=== PATIENT | female | born 1930 | race Caucasian/White ===

== ENCOUNTER 2016-11-29 17:53 | Inpatient (IN) ==
--- NOTE | 2016-11-29 19:31 | Internal Med History&Physical ---
Date of Encounter: 11/29/16 Time of Encounter: 19:29 Assessment and Plan (1) Physical deconditioning Current visit: Yes Status: Acute patient comes in with signs and symptoms concerning for this condition, she lives at home alone so this is concerning for her care, we will get PT/OT to weigh in (2) GIB (gastrointestinal bleeding) Current visit: Yes Status: Acute patient reports dark tarry stools concerning for GI bleed, she had her last colonoscopy in 1973, we will get GI/surgery to weigh in, Qualifiers: GI bleed type/associated pathology: diverticulosis Qualified Code(s): K57.91 - Diverticulosis of intestine, part unspecified, without perforation or abscess with bleeding (3) Hypokalemia Current visit: Yes Status: Acute from hx this is most likely from poor intake, we will replace and follow BMP (4) Pleural effusion Current visit: Yes Status: Acute moderate left sided pleural effusion may be contributing to her dyspnea but there are other causes like her anemia, her pulse ox reading has been normal, she will benefit however from consideration of thoracentesis, this decision will be deferred to the primary attending (5) Anemia Current visit: Yes Status: Acute patient has a normal Hb of 12.4 in 08/2016 and now comes in with a drop to 9.0 in the setting of dark tarry stools, the fact that her MCV is normal is concerning for an acute blood loss, will monitor clinically for continued bleed , follow CBC, we will get GI input, should her Hb <7, we will transfuse PRBC Qualifiers: Anemia type: other cause Other causes of anemia: chronic disease, neoplastic Qualified Code(s): D63.0 - Anemia in neoplastic disease (6) CML (chronic myelocytic leukemia) Current visit: Yes Status: Chronic we will defer to outpatient management with her oncologist Internal Medicine - H&P: HPI Chief complaint: generalized weakness Admitted From: Hospital to Hospital Transfer Plans for Post Hospital Care: Home History of present illness: Ms. Desouza is a 86 year old female with a history of leukemia diagnosed about 9 weeks ago and started on Gleevec about 5 weeks ago comes in with worsening generalized weakness. She reports that she was in her usual state of health until about 5 weeks ago when she began treatment for her recently diagnosed condition. Since then she has had nausea and vomiting, inability to eat and has had a poor oral intake since. This has caused her to become fatigued with generalized weakness and has not been able to get around. She also has dyspnea on exertion, and reduced exercise tolerance. Things worsened today so she called her oncologist and discussed her symptoms, her oncologist then asked her to come to the ER. She showed up at [facility] and she was transferred here for further management. Incidentally since Saturday she has had dark tarry stools with every bowel movement, including today. Her last colonoscopy was in 1973 and she has not had one since though one was recommended. PAST MEDICAL HISTORY: COPD, uses O2 at night. 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 Living situation: lives alone She is FULL CODE, we discussed it on admission FAMILY HISTORY: Both parents are , father had HTN, of stroke in his late 80's, mother had DM and had multiple GA's eventually dying in her late 60's, maternal grandfather had colon cancer Past Med Surg Social Fam HX - Past Medical History Medical history: cancer (CML, prior right lower extremity melanoma, breast cancer, facial skin cancer), COPD, GERD, hypertension, other (Right lower extremity lymphedema) Psychiatric history: no psych history - Past Surgical History Surgical History: cancer surgery (Right lower extremity melanoma excision and lymphatic dissection, facial skin cancer excision, breast lumpectomy), hysterectomy - Social History Smoking Status: Former smoker Smokeless Tobacco Status: No Alcohol use: none Drug use: none - Family History Mother Adopted: No Living Status: Age at : 67 Cause of : [place] Hx Family Cardiac Disorders: Yes (History of nine GA's) Hx Family Respiratory Disorders: No Hx Family Cancer: No Hx Family GI Disorders: No Hx Family Genitourinary Disorders: No Hx Family Endocrine Disorder: Yes (Severe Diabetic) Hx Family Musculoskeletal Disorders: No Hx Family Neuromuscular Disorders: No Hx Family Neurologic Disorders: No Hx Family HEENT Disorders: No Hx Family Autoimmune Disorders: No Hx Family Reproductive Disorders: No Hx Family Psychosocial Disorders: No Hx Family Medical Disorders: No Father Adopted: No Living Status: Age at : 89 Cause of : Stroke Hx Family Cardiac Disorders: Yes (Hypertension) Hx Family Respiratory Disorders: No Hx Family Cancer: No Hx Family GI Disorders: No Hx Family Genitourinary Disorders: No Hx Family Endocrine Disorder: No Hx Family Musculoskeletal Disorders: No Hx Family Neuromuscular Disorders: No Hx Family Neurologic Disorders: No Hx Family HEENT Disorders: No Hx Family Autoimmune Disorders: No Hx Family Reproductive Disorders: No Hx Family Psychosocial Disorders: No Hx Family Medical Disorders: No Internal Medicine - H&P: Meds Diclofenac Sodium [Voltaren] 2 gm TP BID 09/14/16 [History] Imatinib Mesylate 400 mg PO DAILY #30 tablet 09/14/16 [Rx] Lansoprazole [Prevacid] 30 mg PO DAILY 09/14/16 [History] Losartan Potassium [Cozaar] 100 mg PO DAILY 09/14/16 [History] Meclizine [Antivert] 2 tab PO DAILY PRN 09/14/16 [History] Naproxen [Naprosyn] 500 mg PO Q12H PRN 09/14/16 [History] Prochlorperazine Maleate [Compazine] 10 mg PO Q8HR PRN #90 tablet 09/14/16 [Rx] Verapamil ER (24 HR) [Calan SR] 240 mg PO DAILY 09/14/16 [History] Metoprolol Tartrate [Lopressor] 25 mg PO BID 10/09/16 [History] Allergies albuterol Adverse Reaction (Verified 06/10/15 09:09) Seizure ciprofloxacin [From Cipro] Adverse Reaction (Verified 06/10/15 09:09) Nausea codeine Adverse Reaction (Verified 06/10/15 09:09) Vomiting iodine Adverse Reaction (Verified 06/10/15 09:09) Fainting pentazocine [From Talwin] Adverse Reaction (Verified 06/10/15 09:09) Hypotension prednisone Adverse Reaction (Verified 06/10/15 09:09) See Comments Tetracycline Adverse Reaction (Verified 06/10/15 09:09) Unconscious steroids Adverse Reaction (Uncoded 06/10/15 09:09) Cramping of the Muscles All Systems PM: A 10-system review of systems was performed and is negative for pertinent findings except as documented above in the HPI. - Constitutional Vitals: Vital Signs Temperature 98.2 F 11/29/16 15:56 Pulse Rate 89 11/29/16 15:56 Respiratory Rate 26 11/29/16 15:56 O2 Sat by Pulse Oximetry 97 11/29/16 15:56 Temperature 98.2 F 11/29/16 17:40 Pulse Rate 73 11/29/16 17:40 Respiratory Rate 20 11/29/16 17:40 Blood Pressure 165/74 11/29/16 17:40 O2 Sat by Pulse Oximetry 100 11/29/16 17:40 GENERAL: Elderly female, lying in bed, looking fatigued, Alert, not in obvious distress HEENT: NC/AT, EOMI, PERRLA, anicteric sclera, mild pallor of conjunctiva, supple, clear nares, dry mucous membranes, RESP: Lungs are clear to auscultation bilaterally, good AE bilaterally, No crackles or wheeze CARDIO: Normal hearts sounds; S1 and 2, RRR with no murmurs, no JVD, mild pitting edema bilaterally GI: Soft obese abdomen, full, no tenderness, no organomegaly felt, normal bowel sounds heard MUSCULOSKELETAL: grossly normal movements bilaterally, right lower extremity larger than left NEUROLOGIC: CN 2-12 intact grossly. No gross motor/sensory deficit appreciated, PSYCHIATRY: AAO x 3. Mood is fair, SKIN: actinic keratotic lesions on her bilateral upper extremities, stasis dermatoses on the lower extremities; right>left Internal Med - H&P Results - Labs CBC & Chem 7: 11/30/16 03:32 11/30/16 03:32
[2016-11-29] MEDS ORDERED: Naloxone 0.4 MG/ML INJ IVP PRN (19:33)
[2016-11-29] MEDS ORDERED: Metoclopramide 10 MG/2 ML VIAL IVP PRN (21:29)
[2016-11-29] MEDS: Ringers Solution, Lactated 1,000 ML IVC SCH (22:01)
[2016-11-29] MEDS: Acetaminophen 325 MG TABLET PO PRN (23:43)
[2016-11-29] MEDS: Ondansetron 4 MG/2 ML VIAL IVP SCH (23:44)
[2016-11-30 03:50] LABS: Basophils % 0.4 %; Eosinophils # 0.1 K/mcL (0.0-0.6); Eosinophils % 2.2 %; Hematocrit 22.8 % (35.3-44.9); Hemoglobin 7.1 g/dL (11.5-15.4); Immature Granulocytes % 1.8 % (0-4); Immature Platelets 3.1 % (1.1-6.1); Lymphocytes # 0.6 K/mcL (0.6-4.6); Lymphocytes % 27.2 %; Mean Corpuscular HGB Conc 31.1 g/dL (31.6-35.5); Mean Corpuscular Hemoglobin 31.1 pg (28.0-33.3); Mean Platelet Volume 10.2 fL (9.4-12.4); Monocytes # 0.2 K/mcL (0.0-1.3); Monocytes % 10.1 %; Neutrophils # 1.3 K/mcL (1.6-8.9); Red Blood Count 2.28 M/mcL (3.82-4.97); Red Cell Distribution Width 17.4 % (11.5-14.5); Segmented Neutrophils % 58.3 %
[2016-11-30 03:52] LABS: Platelet Count 46 K/mcL (140-400)
[2016-11-30 04:24] LABS: Hypochromasia Present (Not Present); Platelet Estimate Decreased (Normal)
[2016-11-30 04:31] LABS: BUN/Creatinine Ratio 18 (6-26); Blood Urea Nitrogen 15 mg/dL (7-20); Calcium 8.2 mg/dL (8.6-10.8); Carbon Dioxide 28 mEq/L (19-29); Chloride 108 mEq/L (98-109); Glucose 97 mg/dL (70-99); Magnesium 1.6 mg/dL (1.6-2.6); Osmolality,Calculated 287 (280-300); Phosphorous 2.6 mg/dL (2.3-4.7); Potassium 3.5 mEq/L (3.5-4.5); Sodium 138 mEq/L (136-145); eGFR For African Americans > 60 (> 60); eGFR For Non-African Americans > 60 (> 60)
[2016-11-30] MEDS: Ondansetron 4 MG/2 ML VIAL IVP SCH ×2 (06:38→12:38)
[2016-11-30] MEDS: Ringers Solution, Lactated 1,000 ML IVC SCH ×2 (08:21→22:56)
[2016-11-30] MEDS: *HR* Heparin 5,000 UNIT/ML VIAL SQ SCH (08:22)
[2016-11-30] MEDS ORDERED: IMATINIB MESYLATE 400 MG PO SCH (09:00)
[2016-11-30] MEDS ORDERED: 0.9 % Sodium Chloride 500 ML ONE (09:22)
[2016-11-30] MEDS ORDERED: 0.9 % Sodium Chloride Mini Bag 100 ML ONE (10:20)
--- NOTE | 2016-11-30 13:33 | Internal Med Progress Note ---
Date of Encounter: 11/30/16 Time of Encounter: 08:40 - Assessment and plan (1) GIB (gastrointestinal bleeding) Current Visit: Yes Status: Acute Assessment and plan: Patient continues to report dark tarry stools. Surgery has been consulted. Patient on clear liquid diet. Change PPI to IV form. Monitor blood counts closely. Transfuse as needed. High-risk for complications due to GI bleed and advanced age. Qualifiers: GI bleed type/associated pathology: melena Qualified Code(s): K92.1 - Melena (2) Anemia Current Visit: Yes Status: Acute Assessment and plan: Hemoglobin level is 7.1. We will transfuse PRBC. Qualifiers: Anemia type: other cause Other causes of anemia: chronic disease, neoplastic Qualified Code(s): D63.0 - Anemia in neoplastic disease (3) CML (chronic myelocytic leukemia) Current Visit: Yes Status: Chronic Assessment and plan: Was on treatment with Gleevec. Patient has apparently been advised to hold it for now. We will hold medication for now until this is clarified. (4) Physical deconditioning Current Visit: Yes Status: Acute Assessment and plan: Evaluated by physical therapy and recommended placement to inpatient rehabilitation. 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 (5) Pleural effusion Current Visit: Yes Status: Acute Assessment and plan: Patient with small to moderate left-sided pleural effusion with consolidation in the left lung base. Patient does have low platelet count, so we will hold off on thoracentesis at this time and manage conservatively. (6) LLL pneumonia Current Visit: Yes Status: Suspected Assessment and plan: Patient with left lower lobe pulmonary consolidation first chest x-ray. We will treat empirically. She does have a low WBC count due to CML and is chronically immunosuppressed. We will follow culture results that were drawn in ED. Qualifiers: Pneumonia type: due to Pneumococcus Qualified Code(s): J13 - Pneumonia due to Streptococcus pneumoniae - Subjective Interval history: Patient complaining of continued dark tarry stools and diarrhea. Feels weak and tired. Also having some shortness of breath. Denies any chest pain. No abdominal pain. - Constitutional Vitals: Temp Pulse Resp BP Pulse Ox 97.8 F 82 14 141/68 99 11/30/16 10:38 11/30/16 10:38 11/30/16 10:38 11/30/16 10:38 11/30/16 10:38 General appearance: Present: mild distress, A&O X 3, answers questions appropriately - Neck Neck exam general surgery: Present: supple, trachea midline. Absent: lymphadenopathy - Respiratory Respiratory exam: Present: CTAB. Absent: accessory muscle use, rales, rhonchi, wheezes - Cardiovascular Cardiovascular exam: Present: RRR, +S1, +S2. Absent: diastolic murmur, gallop, rubs, systolic murmur - GI/Abdominal GI/Abdominal exam: Present: normal bowel sounds, soft, no peritoneal signs. Absent: distended, tenderness - Extremities Exam Extremities exam: Present: warm, radial pulses palpable and symetrical. Absent : calf tenderness, cyanotic, pedal edema - Neurological Exam Neurological exam: Present: alert, oriented X3, no focal deficits. Absent: facial droop, speech deficit - Skin Skin exam: Present: dry, intact Internal Medicine: Result - Labs CBC & Chem 7: 11/30/16 03:32 11/30/16 03:32 Labs: Short CBC 11/30/16 Range/Units 03:32 WBC 2.3 L (4.3-11.1) K/mcL Hgb 7.1 L D (11.5-15.4) g/dL Hct 22.8 L (35.3-44.9) % Plt Count 46 L (140-400) K/mcL Neutrophils # 1.3 L (1.6-8.9) K/mcL BMP 11/30/16 03:32 Sodium 138 Potassium 3.5 Chloride 108 Carbon Dioxide 28 BUN 15 Creatinine 0.82 Glucose 97 Calcium 8.2 L Consult Discharge Plan - Plan Referrals: Shaun Pace DO [Primary Care Provider] -
[2016-11-30] MEDS: Azithromycin 500 MG in D5% in Water 250 ML IVPB SCH (14:37)
[2016-11-30] MEDS ORDERED: D5% in Water (Mini-Bag+) 100 ML IVPB ONE (14:41)
--- NOTE | 2016-11-30 16:21 | General Surgery Consult Note ---
Date of Encounter: 11/30/16 Time of Encounter: 15:10 History of Present Illness Consult date: 11/30/16 Requesting physician: Mario Pace History of present illness: 86-year-old female admitted after presenting to an outside hospital with worsening generalized weakness, dyspnea on exertion and melena. The patient was transferred to [facility] for further management and care. Patient with a known history of CML, diagnosed approximately 9 weeks ago and treated medically (gleevec). With chemotherapy the patient has had progressive nausea and episodic vomiting. She describes anorexia and progressive weakness and fatigue. Patient is notably anemic the globe and falling from 9.0-7.1 overnight. Baron crit has fallen from 27.3- 22.8. Platelet count is markedly diminished at 46,000 consistent with pancytopenia likely due to chemotherapy. Gastroenterologic/Surgical consultation was placed (without direct communication) for possible endoscopic evaluation. Past medical history: CML, chronic respiratory failure/COPD requiring limitation at night; degenerative disc disease, history of breast cancer - treated with lumpectomy and radiation- 2002; melanoma, 1985; hypertension, basal cell carcinoma right cheek, squamous cell carcinoma in situ left forearm, chronic right lower extremity lymphedema secondary to lymphadenectomy. Remote history of peptic ulcer disease/bleeding ulcer. Surgical history: Wide excision melanoma right leg with lymphadenectomy; partial mastectomy, hysterectomy; excision basal carcinoma right cheek Allergies: Albuterol, Cipro, codeine, IV iodine, and terazosin, prednisone, tetracycline Medications: Diclofenac 2 g topically twice a day Imatinib 400 mg by mouth daily Lansoprazole 30 mg by mouth daily Losartan 100 mg by mouth daily Meclizine 2 tabs by mouth as needed for dizziness Naproxen 500 mg by mouth every 12 hours when necessary Prochlorperazine 10 mg by mouth every 8 hours when necessary for nausea and vomiting Verapamil ER 240 mg by mouth daily Metoprolol 25 mg by mouth twice a day Social history: Patient denies any current alcohol or tobacco use but admits to consuming both many years ago. No acknowledged illicit drug use. Physical examination: Elderly, age-appropriate patient resting comfortably in her hospital bed. Afebrile, currently 97.0; pulse 72, respirations 17 and unlabored, blood pressure 143/74. Skin: Warm without obvious jaundice Lungs: Clear bilaterally Cardiac: Regular rate Abdomen: Soft, nontender. Active bowel sounds Rectal examination: Not repeated; stool testing is Hemoccult-positive; melanoma is present Extremities: Chronic swelling right lower extremity Impression: 86 yo transferred to [facility] for further evaluation and possible treatment increasing fatigue, weakness and anemia. Patient with melena x 5 days. History of CML diagnosis approx 9 weeks ago with chemotherapy causing progressive nausea, episodic vomiting, anorexia and progressive weakness. Patient also with a history of melanoma right lower extremity, breast cancer Patient currently with pancytopenia related to treatment for CML (gleevec) - white count 2.3, hemoglobin 7.1, hematocrit 22.8, platelet count 46,000. Treatment options include upper endoscopy v medical management. EGD was discussed. The patient indicates familiarity with EGD having undergone EGD in the remote past related to prior history PUD. The experience apparently was not pleasant. The patient wishes to avoid EGD if possible, preferring medical management. Daughter and granddaughter were at bedside during this encounter. They agreed with the patient 's decision. I will initiate Protonix drip and follow along with you. Suggest Medical Oncology Consultation to assist with continued management of this patient's pancytopenia and history multiple malignancies. Past Med Surg Social Fam HX - Past Medical History Medical history: cancer (CML, prior right lower extremity melanoma, breast cancer, facial skin cancer), COPD, GERD, hypertension, other (Right lower extremity lymphedema) Psychiatric history: no psych history - Past Surgical History Surgical History: cancer surgery (Right lower extremity melanoma excision and lymphatic dissection, facial skin cancer excision, breast lumpectomy), hysterectomy - Social History Smoking Status: Former smoker Smokeless Tobacco Status: No Alcohol use: none Drug use: none - Family History Mother Adopted: No Living Status: Age at : 67 Cause of : [place] Hx Family Cardiac Disorders: Yes (History of nine WA's) Hx Family Respiratory Disorders: No Hx Family Cancer: No Hx Family GI Disorders: No Hx Family Genitourinary Disorders: No Hx Family Endocrine Disorder: Yes (Severe Diabetic) Hx Family Musculoskeletal Disorders: No Hx Family Neuromuscular Disorders: No Hx Family Neurologic Disorders: No Hx Family HEENT Disorders: No Hx Family Autoimmune Disorders: No Hx Family Reproductive Disorders: No Hx Family Psychosocial Disorders: No Hx Family Medical Disorders: No Father Adopted: No Living Status: Age at : 89 Cause of : Stroke Hx Family Cardiac Disorders: Yes (Hypertension) Hx Family Respiratory Disorders: No Hx Family Cancer: No Hx Family GI Disorders: No Hx Family Genitourinary Disorders: No Hx Family Endocrine Disorder: No Hx Family Musculoskeletal Disorders: No Hx Family Neuromuscular Disorders: No Hx Family Neurologic Disorders: No Hx Family HEENT Disorders: No Hx Family Autoimmune Disorders: No Hx Family Reproductive Disorders: No Hx Family Psychosocial Disorders: No Hx Family Medical Disorders: No Medications and Allergies Imatinib Mesylate 400 mg PO DAILY #30 tablet 09/14/16 [Rx] Lansoprazole [Prevacid] 30 mg PO DAILY 09/14/16 [History] Losartan Potassium [Cozaar] 100 mg PO DAILY 09/14/16 [History] Meclizine [Antivert] 2 tab PO DAILY PRN 09/14/16 [History] Verapamil ER (24 HR) [Calan SR] 240 mg PO DAILY 09/14/16 [History] Metoprolol Tartrate [Lopressor] 25 mg PO BID 10/09/16 [History] Acetaminophen [Pain Relief] 500 mg PO Q4-6H PRN 11/30/16 [History] Ipratropium [ATROVENT Inhaler] 2 puff IH QID PRN 11/30/16 [History] Loratadine [Claritin] 10 mg PO DAILY 11/30/16 [History] Montelukast [Singulair] 10 mg PO DAILY 11/30/16 [History] Tiotropium [place] [Spiriva Respimat] 1 puff IH DAILY 11/30/16 [History] Allergies albuterol Adverse Reaction (Verified 11/30/16 09:53) Seizure ciprofloxacin [From Cipro] Adverse Reaction (Verified 11/30/16 09:53) Nausea codeine Adverse Reaction (Verified 11/30/16 09:53) Vomiting iodine Adverse Reaction (Verified 11/30/16 09:53) Fainting pentazocine [From Talwin] Adverse Reaction (Verified 11/30/16 09:53) Hypotension prednisone Adverse Reaction (Verified 06/10/15 09:09) See Comments Tetracycline Adverse Reaction (Verified 11/30/16 09:53) Unconscious steroids Adverse Reaction (Uncoded 06/10/15 09:09) Cramping of the Muscles Review of Systems All systems PM: A 10-system review of systems was performed and is negative for pertinent findings except as documented above in the HPI. General Surgery Exam Initial Vital Signs Temp Pulse Resp BP Pulse Ox 97.7 F 75 14 133/64 97 11/29/16 20:33 11/29/16 20:33 11/29/16 20:33 11/29/16 20:33 11/29/16 20:33 Exam Initial Vital Signs Temp Pulse Resp BP Pulse Ox 97.7 F 75 14 133/64 97 11/29/16 20:33 11/29/16 20:33 11/29/16 20:33 11/29/16 20:33 11/29/16 20:33 Results - Labs 11/30/16 03:32 11/30/16 03:32 Abnormal lab results WBC 2.3 K/mcL (4.3-11.1) L 11/30/16 03:32 RBC 2.28 M/mcL (3.82-4.97) L 11/30/16 03:32 Hgb 7.1 g/dL (11.5-15.4) L D 11/30/16 03:32 Hct 22.8 % (35.3-44.9) L 11/30/16 03:32 MCHC 31.1 g/dL (31.6-35.5) L 11/30/16 03:32 RDW 17.4 % (11.5-14.5) H 11/30/16 03:32 Plt Count 46 K/mcL (140-400) L 11/30/16 03:32 Neutrophils # 1.3 K/mcL (1.6-8.9) L 11/30/16 03:32 Platelet Estimate Decreased (Normal) L 11/30/16 03:32 Hypochromasia Present (Not Present) A 11/30/16 03:32 Calcium 8.2 mg/dL (8.6-10.8) L 11/30/16 03:32 Diabetes panel 11/30/16 Range/Units 03:32 Sodium 138 (136-145) mEq/L Potassium 3.5 (3.5-4.5) mEq/L Chloride 108 (98-109) mEq/L Carbon Dioxide 28 (19-29) mEq/L BUN 15 (7-20) mg/dL Creatinine 0.82 (0.57-1.11) mg/dL Glucose 97 (70-99) mg/dL Calcium 8.2 L (8.6-10.8) mg/dL Calcium panel 11/30/16 Range/Units 03:32 Calcium 8.2 L (8.6-10.8) mg/dL Phosphorus 2.6 (2.3-4.7) mg/dL Pituitary panel 11/30/16 Range/Units 03:32 Sodium 138 (136-145) mEq/L Potassium 3.5 (3.5-4.5) mEq/L Chloride 108 (98-109) mEq/L Carbon Dioxide 28 (19-29) mEq/L BUN 15 (7-20) mg/dL Creatinine 0.82 (0.57-1.11) mg/dL Glucose 97 (70-99) mg/dL Calcium 8.2 L (8.6-10.8) mg/dL Adrenal panel 11/30/16 Range/Units 03:32 Sodium 138 (136-145) mEq/L Potassium 3.5 (3.5-4.5) mEq/L Chloride 108 (98-109) mEq/L Carbon Dioxide 28 (19-29) mEq/L BUN 15 (7-20) mg/dL Creatinine 0.82 (0.57-1.11) mg/dL Glucose 97 (70-99) mg/dL Calcium 8.2 L (8.6-10.8) mg/dL All other labs normal. Consult Discharge Plan - Plan Referrals: Shaun Pace DO [Primary Care Provider] -
[2016-11-30] MEDS: Pantoprazole 40 MG in 0.9 % Sodium Chloride Mini Bag 100 ML IVC SCH ×2 (17:14→20:54)
[2016-11-30] MEDS ORDERED: Pantoprazole 40 MG VIAL IVP SCH (18:00)
[2016-11-30 18:29] LABS: Hematocrit 29.7 % (35.3-44.9); Hemoglobin 9.3 g/dL (11.5-15.4)
[2016-11-30] MEDS: Acetaminophen 325 MG TABLET PO PRN (22:54)
[2016-12-01] MEDS: Pantoprazole 40 MG in 0.9 % Sodium Chloride Mini Bag 100 ML IVC SCH ×4 (02:15→20:59)
[2016-12-01 06:55] LABS: Basophils % 0.5 %; Eosinophils # 0.1 K/mcL (0.0-0.6); Eosinophils % 3.5 %; Hematocrit 26.6 % (35.3-44.9); Hemoglobin 8.2 g/dL (11.5-15.4); Lymphocytes # 0.6 K/mcL (0.6-4.6); Lymphocytes % 28.8 %; Mean Corpuscular HGB Conc 30.8 g/dL (31.6-35.5); Mean Corpuscular Hemoglobin 30.7 pg (28.0-33.3); Mean Corpuscular Volume 99.6 fL (83.0-100.0); Mean Platelet Volume 9.9 fL (9.4-12.4); Monocytes # 0.2 K/mcL (0.0-1.3); Monocytes % 9.1 %; Neutrophils # 1.1 K/mcL (1.6-8.9); Red Blood Count 2.67 M/mcL (3.82-4.97); Red Cell Distribution Width 18.2 % (11.5-14.5); Segmented Neutrophils % 57.1 %
[2016-12-01 06:56] LABS: Platelet Count 47 K/mcL (140-400)
[2016-12-01 06:57] LABS: Anisocytosis 1+ (Not Present); BUN/Creatinine Ratio 15 (6-26); Blood Urea Nitrogen 12 mg/dL (7-20); Calcium 8.3 mg/dL (8.6-10.8); Carbon Dioxide 30 mEq/L (19-29); Chloride 107 mEq/L (98-109); Glucose 95 mg/dL (70-99); Osmolality,Calculated 288 (280-300); Platelet Estimate Decreased (Normal); Potassium 3.4 mEq/L (3.5-4.5); Sodium 139 mEq/L (136-145); eGFR For African Americans > 60 (> 60); eGFR For Non-African Americans > 60 (> 60)
[2016-12-01] MEDS: Tiotropium 18 MCG inhalation IH SCH (08:42)
--- NOTE | 2016-12-01 09:28 | General Surgery Progress Note ---
Date of Encounter: 12/01/16 Time of Encounter: 09:19 Subjective Patient reports: nausea Narrative: General Surgery - Patient complaining of nausea. No emesis. The nausea likely due to chemotherapy. Still describes black BM/melena Afeb, 97.5; HR 71; RR 18, BP 151/72 - stable H&H after transfusion 1 unit PRBC - 8.2/26.6 - previously 7.1/22.8 & 9.3/ 29.7 - the current labs likely have equilibrated following the transfusion White count 2.0, platelet count 47,000 Electrolytes notable for potassium of 3.4 - the remainder including BUN and creatinine are stable The patient continues to decline upper endoscopy. RECOMMENDATIONS: continue protonix drip continue to monitor H&H treat nausea symptomatically it is highly likely the patient will continue to pass melenic stool for several more days, even if no recurrent GI hemorrhage occurs correct hypokalemia the patient is likely to recover more slowly due to the chemotherapy induced pancytopenia Objective Vital Signs - Last 8 Hours Temp Pulse Resp BP Pulse Ox 12/01/16 07:20 97.5 F L 71 18 151/72 99 12/01/16 03:30 98.0 F 68 14 143/69 99 Intake and Output 11/30/16 12/01/16 12/01/16 23:59 07:59 15:59 Intake Total 2050 / 2050 220 / 220 480 / 480 Output Total 700 / 700 750 / 750 Balance 1350 / 1350 -530 / -530 480 / 480 Intake: IV Fluids 1450 / 1450 100 / 100 Protonix 40 MG In 0.9 % 100 / 100 100 / 100 Sodium Chloride (Mini-Bag +) 100 ML @ 20 mls/hr IVC .Q5H [facility] Rx#: [id number] Lactated Ringers 1,000 ML 1000 / 1000 @ 100 mls/hr IVC .Q10H [facility] Rx#:[id number] Zithromax 500 mg In 250 / 250 Dextrose 5% 250 ML @ 252 mls/hr IVPB Q24H [facility] Rx#: [id number] Rocephin 1,000 MG In 100 / 100 Dextrose 5% (Minibag+) 100 ML 100 ML @ 200 mls/ hr IVPB DAILY [facility] Rx#: [id number] Oral 600 / 600 120 / 120 480 / 480 Output: Urine 0 / 0 750 / 750 Stool 300 / 300 Urine/Stool Mix 400 / 400 Other: Percent of Meal Consumed 0% Stool Size Moderate Moderate Stool Consistency liquid formed Stool Characteristics Normal for Patient Stool Color Black Brown # Bowel Movements 1 Weight 119.295 kg Patient Weight 12/01/16 23:59 Weight 119.295 kg - Labs 12/01/16 06:26 12/01/16 06:26 Diabetes panel 12/01/16 Range/Units 06:26 Sodium 139 (136-145) mEq/L Potassium 3.4 L (3.5-4.5) mEq/L Chloride 107 (98-109) mEq/L Carbon Dioxide 30 H (19-29) mEq/L BUN 12 (7-20) mg/dL Creatinine 0.81 (0.57-1.11) mg/dL Glucose 95 (70-99) mg/dL Calcium 8.3 L (8.6-10.8) mg/dL Calcium panel 12/01/16 Range/Units 06:26 Calcium 8.3 L (8.6-10.8) mg/dL Pituitary panel 12/01/16 Range/Units 06:26 Sodium 139 (136-145) mEq/L Potassium 3.4 L (3.5-4.5) mEq/L Chloride 107 (98-109) mEq/L Carbon Dioxide 30 H (19-29) mEq/L BUN 12 (7-20) mg/dL Creatinine 0.81 (0.57-1.11) mg/dL Glucose 95 (70-99) mg/dL Calcium 8.3 L (8.6-10.8) mg/dL Adrenal panel 12/01/16 Range/Units 06:26 Sodium 139 (136-145) mEq/L Potassium 3.4 L (3.5-4.5) mEq/L Chloride 107 (98-109) mEq/L Carbon Dioxide 30 H (19-29) mEq/L BUN 12 (7-20) mg/dL Creatinine 0.81 (0.57-1.11) mg/dL Glucose 95 (70-99) mg/dL Calcium 8.3 L (8.6-10.8) mg/dL Consult Discharge Plan - Plan Referrals: Shaun Pace, [Primary Care Provider] -
[2016-12-01] MEDS: Ringers Solution, Lactated 1,000 ML IVC SCH ×2 (09:32→09:40)
[2016-12-01] MEDS: Verapamil ER (24 HR) 240 MG TABLET.ER PO SCH (09:39)
[2016-12-01] MEDS ORDERED: Potassium Chloride Elixir 20 MEQ/15 ML UDC PO ONE (09:47)
[2016-12-01] MEDS: Levalbuterol Neb 1.25 MG/3 ML IH SCH ×3 (11:59→22:34)
[2016-12-01] MEDS: Azithromycin 500 MG in D5% in Water 250 ML IVPB SCH (16:05)
[2016-12-02] MEDS: Ringers Solution, Lactated 1,000 ML IVC SCH ×2 (01:00→22:48)
[2016-12-02] MEDS: Pantoprazole 40 MG in 0.9 % Sodium Chloride Mini Bag 100 ML IVC SCH ×5 (02:06→21:42)
[2016-12-02 03:51] LABS: Basophils % 0.5 %; Hemoglobin 7.7 g/dL (11.5-15.4)
[2016-12-02 03:52] LABS: Eosinophils # 0.1 K/mcL (0.0-0.6); Eosinophils % 2.3 %; Hematocrit 24.6 % (35.3-44.9); Immature Granulocytes % 1.9 % (0-4); Immature Platelets 3.8 % (1.1-6.1); Lymphocytes # 0.6 K/mcL (0.6-4.6); Lymphocytes % 27.8 %; Mean Corpuscular HGB Conc 31.3 g/dL (31.6-35.5); Mean Corpuscular Volume 99.2 fL (83.0-100.0); Mean Platelet Volume 10.4 fL (9.4-12.4); Monocytes # 0.2 K/mcL (0.0-1.3); Monocytes % 7.9 %; Neutrophils # 1.3 K/mcL (1.6-8.9); Red Blood Count 2.48 M/mcL (3.82-4.97); Segmented Neutrophils % 59.6 %
[2016-12-02 04:04] LABS: Platelet Count 59 K/mcL (140-400)
[2016-12-02 04:06] LABS: Alanine Aminotransferase 23 Units/L (0-55); Albumin 2.6 g/dL (3.5-5.0); Albumin/Globulin Ratio 1.4 (1.1-2.2); Alkaline Phosphatase 39 Units/L (38-126); Aspartate Amino Transferase 28 Units/L (5-34); BUN/Creatinine Ratio 15 (6-26); Bilirubin,Total 0.5 mg/dL (0.2-1.2); Blood Urea Nitrogen 11 mg/dL (7-20); Calcium 8.5 mg/dL (8.6-10.8); Carbon Dioxide 27 mEq/L (19-29); Chloride 109 mEq/L (98-109); Globulin 1.8 g/dL (2.4-3.5); Glucose 99 mg/dL (70-99); Osmolality,Calculated 289 (280-300); Potassium 3.6 mEq/L (3.5-4.5); Sodium 140 mEq/L (136-145); Total Protein 4.4 g/dL (6.0-8.3); eGFR For African Americans > 60 (> 60); eGFR For Non-African Americans > 60 (> 60)
[2016-12-02] MEDS: Levalbuterol Neb 1.25 MG/3 ML IH SCH ×4 (04:21→22:16)
[2016-12-02] MEDS ORDERED: Ringers Solution, Lactated 1,000 ML IVC SCH (09:45)
--- NOTE | 2016-12-02 09:54 | General Surgery Progress Note ---
Date of Encounter: 12/02/16 Time of Encounter: 09:45 Subjective Patient reports: no new complaints, feels better Narrative: General Surgery - patient feeling better; stool now green. No N/V or abdominal pain. VSS - afeb, 97.6; HR 96; RR 18 BP 130/56 Abdomen - soft nontender. Laboratories: White count 2.2, hemoglobin 7.7, hematocrit 24.6. (Prior H&H 8.2 and 26.6) - IV fluids in excess of 100 mL per hour still ongoing. The hemoglobin and hematocrit is likely dilution from this fluid. Impression: patient appears stable with control of an apparent UGI hemorrhage patient on IV ATB -m Azithromycin and Ceftriaxone - management per Hospitalist Service. RECOMMMENDATIONS - transition from Protonix drip to oral PPI may advance diet discontinuation IVF when medically stable continue to monitor CBC. Objective Vital Signs - Last 8 Hours Temp Pulse Resp BP Pulse Ox 12/02/16 06:40 97.6 F 83 18 130/56 96 12/02/16 05:08 87 12/02/16 04:21 16 99 12/02/16 03:32 97.7 F 115 18 145/68 100 Intake and Output 12/01/16 12/02/16 12/02/16 23:59 07:59 15:59 Intake Total 790 / 790 1100 / 1100 Output Total 500 / 500 350 / 350 Balance 290 / 290 750 / 750 Intake: IV Fluids 550 / 550 1100 / 1100 Protonix 40 MG In 0.9 % 200 / 200 100 / 100 Sodium Chloride (Mini-Bag +) 100 ML @ 20 mls/hr IVC .Q5H [facility] Rx#: [id number] Lactated Ringers 1,000 ML 1000 / 1000 @ 100 mls/hr IVC .Q10H LINDA Rx#:[id number] Zithromax 500 mg In 250 / 250 Dextrose 5% 250 ML @ 252 mls/hr IVPB Q24H [facility]DA Rx#: [id number] Rocephin 1,000 MG In 100 / 100 Dextrose 5% (Minibag+) 100 ML 100 ML @ 200 mls/ hr IVPB DAILY LINDA Rx#: [id number] Oral 240 / 240 0 / 0 Output: Urine 0 / 0 Urine/Stool Mix 500 / 500 350 / 350 Other: Meal Dinner Stool Size Smear Stool Consistency loose Stool Color Brown Green Black # Bowel Movements 1 Weight 119.29 kg Patient Weight 12/02/16 23:59 Weight 119.29 kg - Labs 12/02/16 02:58 12/02/16 02:58 Diabetes panel 12/02/16 Range/Units 02:58 Sodium 140 (136-145) mEq/L Potassium 3.6 (3.5-4.5) mEq/L Chloride 109 (98-109) mEq/L Carbon Dioxide 27 (19-29) mEq/L BUN 11 (7-20) mg/dL Creatinine 0.75 (0.57-1.11) mg/dL Glucose 99 (70-99) mg/dL Calcium 8.5 L (8.6-10.8) mg/dL AST 28 (5-34) Units/L ALT 23 (0-55) Units/L Alkaline Phosphatase 39 (38-126) Units/L Albumin 2.6 L (3.5-5.0) g/dL Calcium panel 12/02/16 Range/Units 02:58 Calcium 8.5 L (8.6-10.8) mg/dL Albumin 2.6 L (3.5-5.0) g/dL Pituitary panel 12/02/16 Range/Units 02:58 Sodium 140 (136-145) mEq/L Potassium 3.6 (3.5-4.5) mEq/L Chloride 109 (98-109) mEq/L Carbon Dioxide 27 (19-29) mEq/L BUN 11 (7-20) mg/dL Creatinine 0.75 (0.57-1.11) mg/dL Glucose 99 (70-99) mg/dL Calcium 8.5 L (8.6-10.8) mg/dL Adrenal panel 12/02/16 Range/Units 02:58 Sodium 140 (136-145) mEq/L Potassium 3.6 (3.5-4.5) mEq/L Chloride 109 (98-109) mEq/L Carbon Dioxide 27 (19-29) mEq/L BUN 11 (7-20) mg/dL Creatinine 0.75 (0.57-1.11) mg/dL Glucose 99 (70-99) mg/dL Calcium 8.5 L (8.6-10.8) mg/dL Total Bilirubin 0.5 (0.2-1.2) mg/dL AST 28 (5-34) Units/L ALT 23 (0-55) Units/L Alkaline Phosphatase 39 (38-126) Units/L Albumin 2.6 L (3.5-5.0) g/dL Consult Discharge Plan - Plan Referrals: Shaun Pace, [Primary Care Provider] -
[2016-12-02] MEDS: Verapamil ER (24 HR) 240 MG TABLET.ER PO SCH (10:06)
[2016-12-02] MEDS: Tiotropium 18 MCG inhalation IH SCH (10:23)
[2016-12-02] MEDS: Azithromycin 500 MG in D5% in Water 250 ML IVPB SCH (15:29)
--- NOTE | 2016-12-02 18:12 | Internal Med Progress Note ---
Date of Encounter: 12/02/16 (Late entry) Time of Encounter: 16:00 (Late entry) - Assessment and plan (1) LLL pneumonia Current Visit: Yes Status: Suspected Qualifiers: Pneumonia type: due to Pneumococcus Qualified Code(s): J13 - Pneumonia due to Streptococcus pneumoniae (2) Pleural effusion Current Visit: Yes Status: Acute (3) CML (chronic myelocytic leukemia) Current Visit: Yes Status: Chronic (4) GIB (gastrointestinal bleeding) Current Visit: Yes Status: Acute Qualifiers: GI bleed type/associated pathology: melena Qualified Code(s): K92.1 - Melena - Subjective Interval history: 12/01 Mrs. Lida Desouza Is an 86-year-old female admitted for melena. Surgery consulted for possible endoscopy. Patient treated with IV Protonix. She has history of CML at this point she has pancytopenia. Could be related to myelodysplastic disorder. Still passing black stools but no abdominal pain no nausea or vomiting. It was noted that she has left-sided effusion. She has some cough with phlegm concern for pneumonia antibiotics added. - Constitutional Vitals: Temp Pulse Resp BP Pulse Ox 97.9 F 83 19 151/81 95 12/02/16 15:15 12/02/16 15:15 12/02/16 15:56 12/02/16 15:15 12/02/16 15:56 General appearance: Present: mild distress, A&O X 3, answers questions appropriately Internal Medicine: Result - Labs CBC & Chem 7: 12/02/16 02:58 12/02/16 02:58 Labs: Short CBC 12/02/16 Range/Units 02:58 WBC 2.2 L (4.3-11.1) K/mcL Hgb 7.7 L (11.5-15.4) g/dL Hct 24.6 L (35.3-44.9) % Plt Count 59 L (140-400) K/mcL Neutrophils # 1.3 L (1.6-8.9) K/mcL BMP 12/02/16 02:58 Sodium 140 Potassium 3.6 Chloride 109 Carbon Dioxide 27 BUN 11 Creatinine 0.75 Glucose 99 Calcium 8.5 L Liver Function 12/02/16 Range/Units 02:58 Total Bilirubin 0.5 (0.2-1.2) mg/dL AST 28 (5-34) Units/L ALT 23 (0-55) Units/L Alkaline Phosphatase 39 (38-126) Units/L Albumin 2.6 L (3.5-5.0) g/dL Consult Discharge Plan - Plan Referrals: Shaun Pace, [Primary Care Provider] -
--- NOTE | 2016-12-02 18:14 | Internal Med Progress Note ---
Date of Encounter: 12/02/16 Time of Encounter: 18:14 - Assessment and plan (1) LLL pneumonia Current Visit: Yes Status: Suspected Qualifiers: Pneumonia type: due to Pneumococcus Qualified Code(s): J13 - Pneumonia due to Streptococcus pneumoniae (2) Pleural effusion Current Visit: Yes Status: Acute (3) CML (chronic myelocytic leukemia) Current Visit: Yes Status: Chronic (4) GIB (gastrointestinal bleeding) Current Visit: Yes Status: Acute Qualifiers: GI bleed type/associated pathology: melena Qualified Code(s): K92.1 - Melena - Subjective Interval history: 12/01 Mrs. Lida Desouza Is an 86-year-old female admitted for melena. Surgery consulted for possible endoscopy. Patient treated with IV Protonix. She has history of CML at this point she has pancytopenia. Could be related to myelodysplastic disorder. Still passing black stools but no abdominal pain no nausea or vomiting. It was noted that she has left-sided effusion. She has some cough with phlegm concern for pneumonia antibiotics added. 12/02 melena has a stop it now she has 4 bowel movements since morning with green stool. On IV antibiotics. Check stool C. difficile. Abdominal pain and symptoms have resolved. She is on clear diet as started by surgery today. - Constitutional Vitals: Temp Pulse Resp BP Pulse Ox 97.9 F 83 19 151/81 95 12/02/16 15:15 12/02/16 15:15 12/02/16 15:56 12/02/16 15:15 12/02/16 15:56 General appearance: Present: mild distress, A&O X 3, answers questions appropriately - Head Head exam: Present: atraumatic, normocephalic - Eye Eye exam: Present: PERRL, conjuntiva pink, sclera anicteric Pupils: Present: PERRL - Neck Neck exam general surgery: Present: supple, trachea midline. Absent: lymphadenopathy - Respiratory Respiratory exam: Present: CTAB. Absent: accessory muscle use, rales, rhonchi, wheezes - Cardiovascular Cardiovascular exam: Present: RRR, +S1, +S2. Absent: diastolic murmur, gallop, rubs, systolic murmur - GI/Abdominal GI/Abdominal exam: Present: normal bowel sounds, soft, no peritoneal signs. Absent: distended, tenderness - Extremities Exam Extremities exam: Present: warm, radial pulses palpable and symetrical. Absent : calf tenderness, cyanotic, pedal edema - Neurological Exam Neurological exam: Present: CN II-XII intact, oriented X3, no focal deficits. Absent: pronater drift, facial droop, speech deficit - Skin Skin exam: Present: dry, intact Internal Medicine: Result - Labs CBC & Chem 7: 12/02/16 02:58 12/02/16 02:58 Labs: Short CBC 12/02/16 Range/Units 02:58 WBC 2.2 L (4.3-11.1) K/mcL Hgb 7.7 L (11.5-15.4) g/dL Hct 24.6 L (35.3-44.9) % Plt Count 59 L (140-400) K/mcL Neutrophils # 1.3 L (1.6-8.9) K/mcL BMP 12/02/16 02:58 Sodium 140 Potassium 3.6 Chloride 109 Carbon Dioxide 27 BUN 11 Creatinine 0.75 Glucose 99 Calcium 8.5 L Liver Function 12/02/16 Range/Units 02:58 Total Bilirubin 0.5 (0.2-1.2) mg/dL AST 28 (5-34) Units/L ALT 23 (0-55) Units/L Alkaline Phosphatase 39 (38-126) Units/L Albumin 2.6 L (3.5-5.0) g/dL Consult Discharge Plan - Plan Referrals: Shaun Pace DO [Primary Care Provider] -
[2016-12-02] MEDS: Acetaminophen 325 MG TABLET PO PRN (21:41)
[2016-12-02] MEDS: *HR* Heparin 5,000 UNIT/ML VIAL SQ SCH (22:48)
[2016-12-03] MEDS: Pantoprazole 40 MG in 0.9 % Sodium Chloride Mini Bag 100 ML IVC SCH ×3 (02:17→21:21)
[2016-12-03 04:35] LABS: Basophils % 0.5 %; Eosinophils # 0.1 K/mcL (0.0-0.6); Eosinophils % 2.9 %; Hematocrit 21.7 % (35.3-44.9); Hemoglobin 6.7 g/dL (11.5-15.4); Immature Granulocytes % 1.4 % (0-4); Immature Platelets 3.4 % (1.1-6.1); Lymphocytes # 0.6 K/mcL (0.6-4.6); Lymphocytes % 26.8 %; Mean Corpuscular HGB Conc 30.9 g/dL (31.6-35.5); Mean Corpuscular Volume 100.5 fL (83.0-100.0); Mean Platelet Volume 10.6 fL (9.4-12.4); Monocytes # 0.2 K/mcL (0.0-1.3); Monocytes % 7.7 %; Neutrophils # 1.3 K/mcL (1.6-8.9); Red Blood Count 2.16 M/mcL (3.82-4.97); Red Cell Distribution Width 18.1 % (11.5-14.5); Segmented Neutrophils % 60.7 %
[2016-12-03] MEDS: Levalbuterol Neb 1.25 MG/3 ML IH SCH ×4 (04:37→22:36)
[2016-12-03 04:52] LABS: Platelet Count 62 K/mcL (140-400)
[2016-12-03 05:01] LABS: Alanine Aminotransferase 20 Units/L (0-55); Albumin 2.5 g/dL (3.5-5.0); Albumin/Globulin Ratio 1.4 (1.1-2.2); Alkaline Phosphatase 37 Units/L (38-126); Aspartate Amino Transferase 25 Units/L (5-34); BUN/Creatinine Ratio 13 (6-26); Bilirubin,Total 0.5 mg/dL (0.2-1.2); Blood Urea Nitrogen 10 mg/dL (7-20); Calcium 8.5 mg/dL (8.6-10.8); Carbon Dioxide 27 mEq/L (19-29); Chloride 108 mEq/L (98-109); Globulin 1.8 g/dL (2.4-3.5); Glucose 96 mg/dL (70-99); Osmolality,Calculated 287 (280-300); Potassium 3.4 mEq/L (3.5-4.5); Sodium 139 mEq/L (136-145); Total Protein 4.3 g/dL (6.0-8.3); eGFR For African Americans > 60 (> 60); eGFR For Non-African Americans > 60 (> 60)
[2016-12-03 05:12] LABS: Platelet Estimate Marked Decrease (Normal)
[2016-12-03] MEDS ORDERED: Pantoprazole 40 MG VIAL IVP SCH (06:00)
[2016-12-03] MEDS: Verapamil ER (24 HR) 240 MG TABLET.ER PO SCH (08:19)
[2016-12-03] MEDS ORDERED: Potassium Chloride 40 MEQ, Lidocaine 1% 2 ML in D5% in Water 500 ML IVPB ONE (09:07)
[2016-12-03] MEDS ORDERED: 0.9 % Sodium Chloride 250 ML ONE ×2 (09:38→18:15)
[2016-12-03] MEDS ORDERED: Furosemide 40 MG/4 ML VIAL IVP ONE (09:41)
[2016-12-03] MEDS ORDERED: Furosemide 20 MG/2 ML VIAL IVP ONE (09:41)
[2016-12-03] MEDS: Ondansetron 4 MG/2 ML VIAL IVP PRN ×2 (10:22→18:59)
[2016-12-03] MEDS: Tiotropium 18 MCG inhalation IH SCH (10:30)
--- NOTE | 2016-12-03 12:04 | General Surgery Progress Note ---
Date of Encounter: 12/03/16 Time of Encounter: 12:00 Subjective Narrative: General Surgery - stool described as black again H&H has fallen to 6.7/21.7. Patient appears symptomatic - dyspneic. Transfusion in progress. No abdominal tenderness or masses Discussed with patient - EGD recommended. The procedure described, risks include hemorrhage, infection, aspiration, cramping abdominal pain, perforation. Patient has expressed understanding and is willing to proceed. Plan: NPO except for meds EGD later today Objective Vital Signs - Last 8 Hours Temp Pulse Resp BP Pulse Ox 12/03/16 10:16 98.0 F 88 16 167/83 95 12/03/16 10:01 98.0 F 85 16 129/69 98 12/03/16 08:28 95 12/03/16 07:16 97.5 F L 87 18 149/76 100 12/03/16 04:38 14 99 Intake and Output 12/02/16 12/03/16 12/03/16 23:59 07:59 15:59 Intake Total 340 / 340 1042 / 1042 440 / 440 Output Total 400 / 400 700 / 700 Balance -60 / -60 342 / 342 440 / 440 Intake: IV Fluids 100 / 100 642 / 642 Protonix 40 MG In 0.9 % 100 / 100 142 / 142 Sodium Chloride (Mini-Bag +) 100 ML @ 20 mls/hr IVC .Q5H [facility] Rx#: [id number] Lactated Ringers 1,000 ML 500 / 500 @ 25 mls/hr IVC .Q24H [facility] Rx#:[id number] Oral 240 / 240 400 / 400 440 / 440 Blood Product 0 / 0 Rbcs Leuko Poor As-3 2nd 0 / 0 Unit [id number] Output: Urine 400 / 400 700 / 700 Other: Meal Dinner Breakfast Percent of Meal Consumed 25% 5% - Labs 12/03/16 03:58 12/03/16 03:58 Diabetes panel 12/03/16 Range/Units 03:58 Sodium 139 (136-145) mEq/L Potassium 3.4 L (3.5-4.5) mEq/L Chloride 108 (98-109) mEq/L Carbon Dioxide 27 (19-29) mEq/L BUN 10 (7-20) mg/dL Creatinine 0.75 (0.57-1.11) mg/dL Glucose 96 (70-99) mg/dL Calcium 8.5 L (8.6-10.8) mg/dL AST 25 (5-34) Units/L ALT 20 (0-55) Units/L Alkaline Phosphatase 37 L (38-126) Units/L Albumin 2.5 L (3.5-5.0) g/dL Calcium panel 12/03/16 Range/Units 03:58 Calcium 8.5 L (8.6-10.8) mg/dL Albumin 2.5 L (3.5-5.0) g/dL Pituitary panel 12/03/16 Range/Units 03:58 Sodium 139 (136-145) mEq/L Potassium 3.4 L (3.5-4.5) mEq/L Chloride 108 (98-109) mEq/L Carbon Dioxide 27 (19-29) mEq/L BUN 10 (7-20) mg/dL Creatinine 0.75 (0.57-1.11) mg/dL Glucose 96 (70-99) mg/dL Calcium 8.5 L (8.6-10.8) mg/dL Adrenal panel 12/03/16 Range/Units 03:58 Sodium 139 (136-145) mEq/L Potassium 3.4 L (3.5-4.5) mEq/L Chloride 108 (98-109) mEq/L Carbon Dioxide 27 (19-29) mEq/L BUN 10 (7-20) mg/dL Creatinine 0.75 (0.57-1.11) mg/dL Glucose 96 (70-99) mg/dL Calcium 8.5 L (8.6-10.8) mg/dL Total Bilirubin 0.5 (0.2-1.2) mg/dL AST 25 (5-34) Units/L ALT 20 (0-55) Units/L Alkaline Phosphatase 37 L (38-126) Units/L Albumin 2.5 L (3.5-5.0) g/dL - VTE Documentation of Mechanical Device: Intermittent pneumatic compression device Consult Discharge Plan - Plan Referrals: Shaun Pace DO [Primary Care Provider] -
[2016-12-03] MEDS: Azithromycin 500 MG in D5% in Water 250 ML IVPB SCH (15:55)
[2016-12-03] MEDS ORDERED: *HR* Midazolam HCl 5 MG/5 ML VIAL IVP ONE (16:48)
[2016-12-03] MEDS ORDERED: *HR* FentaNYL (PF) 100 MCG/2 ML VIAL ONE (16:48)
[2016-12-03] MEDS ORDERED: Simethicone 40 MG/0.6 ML MLS IR ONE (16:58)
[2016-12-03] MEDS ORDERED: *HR* Midazolam HCl 5 MG/5 ML VIAL IVP PRN (16:58)
[2016-12-03] MEDS ORDERED: Tetracaine/Benzocaine/Butamben 200MG/SPRAY (100SPY/BOT) MM ONE (16:58)
--- NOTE | 2016-12-03 16:59 | Internal Med Progress Note ---
Date of Encounter: 12/03/16 Time of Encounter: 16:56 - Assessment and plan (1) LLL pneumonia Current Visit: Yes Status: Suspected Assessment and plan: Patient with left lower lobe pulmonary consolidation first chest x-ray. We will treat empirically. She does have a low WBC count due to CML and is chronically immunosuppressed. We will follow culture results that were drawn in ED. Qualifiers: Pneumonia type: due to Pneumococcus Qualified Code(s): J13 - Pneumonia due to Streptococcus pneumoniae (2) Pleural effusion Current Visit: Yes Status: Acute Assessment and plan: Patient with small to moderate left-sided pleural effusion with consolidation in the left lung base. Patient does have low platelet count, so we will hold off on thoracentesis at this time and manage conservatively. (3) CML (chronic myelocytic leukemia) Current Visit: Yes Status: Chronic Assessment and plan: Was on treatment with Gleevec. Patient has apparently been advised to hold it for now. We will hold medication for now until this is clarified. (4) GIB (gastrointestinal bleeding) Current Visit: Yes Status: Acute Assessment and plan: Patient continues to report dark tarry stools. Surgery has been consulted. Patient on clear liquid diet. Change PPI to IV form. Monitor blood counts closely. Transfuse as needed. High-risk for complications due to GI bleed and advanced age. Qualifiers: GI bleed type/associated pathology: melena Qualified Code(s): K92.1 - Melena - Subjective Interval history: 12/01 Mrs. Lida Desouza Is an 86-year-old female admitted for melena. Surgery consulted for possible endoscopy. Patient treated with IV Protonix. She has history of CML at this point she has pancytopenia. Could be related to myelodysplastic disorder versus Gleevec. Still passing black stools but no abdominal pain no nausea or vomiting. It was noted that she has left-sided effusion. She has some cough with phlegm concern for pneumonia antibiotics added. 12/02 melena has a stop it now she has 4 bowel movements since morning with green stool. On IV antibiotics. Check stool C. difficile. Abdominal pain and symptoms have resolved. She is on clear diet as started by surgery today. 12/03 slightly short of breath not feeling well. Hemoglobin dropped to 6.7 and we plan to transfuse her today. Her tonics is changed to IV. Also concerned about fluid overload as her legs are quite edematous. IV Lasix 40 bid for transfusion and 20 in the middle of transfusion. Potassium is borderline and therefore she will be given 40 mg of IV potassium also. Discussed the case with the surgery. Surgery plans to do EGD. Also recommended to involve oncology as surgery thinks that pancytopenia could be related to Gleevec. Oncology services consulted. For pneumonia she is on IV Rocephin. - Constitutional Vitals: Temp Pulse Resp BP Pulse Ox 99.1 F 97 22 217/82 98 12/03/16 16:45 12/03/16 16:45 12/03/16 16:45 12/03/16 16:45 12/03/16 16:45 General appearance: Present: mild distress, A&O X 3, answers questions appropriately - Head Head exam: Present: atraumatic, normocephalic - Eye Eye exam: Present: PERRL, conjuntiva pink, sclera anicteric Pupils: Present: PERRL - Neck Neck exam general surgery: Present: supple, trachea midline. Absent: lymphadenopathy - Respiratory Respiratory exam: Present: CTAB. Absent: accessory muscle use, rales, rhonchi, wheezes - Cardiovascular Cardiovascular exam: Present: RRR, +S1, +S2. Absent: diastolic murmur, gallop, rubs, systolic murmur - GI/Abdominal GI/Abdominal exam: Present: normal bowel sounds, soft, no peritoneal signs. Absent: distended, tenderness - Extremities Exam Extremities exam: Present: warm, radial pulses palpable and symetrical. Absent : calf tenderness, cyanotic, pedal edema - Neurological Exam Neurological exam: Present: CN II-XII intact, oriented X3, no focal deficits. Absent: pronater drift, facial droop, speech deficit - Skin Skin exam: Present: dry, intact Internal Medicine: Result - Labs CBC & Chem 7: 12/03/16 03:58 12/03/16 03:58 Labs: Short CBC 12/03/16 Range/Units 03:58 WBC 2.1 L (4.3-11.1) K/mcL Hgb 6.7 L (11.5-15.4) g/dL Hct 21.7 L (35.3-44.9) % Plt Count 62 L (140-400) K/mcL Neutrophils # 1.3 L (1.6-8.9) K/mcL BMP 12/03/16 03:58 Sodium 139 Potassium 3.4 L Chloride 108 Carbon Dioxide 27 BUN 10 Creatinine 0.75 Glucose 96 Calcium 8.5 L Liver Function 12/03/16 Range/Units 03:58 Total Bilirubin 0.5 (0.2-1.2) mg/dL AST 25 (5-34) Units/L ALT 20 (0-55) Units/L Alkaline Phosphatase 37 L (38-126) Units/L Albumin 2.5 L (3.5-5.0) g/dL - VTE Documentation of Mechanical Device: Intermittent pneumatic compression device Consult Discharge Plan - Plan Referrals: Shaun Pace DO [Primary Care Provider] -
--- NOTE | 2016-12-03 17:00 | Pre-Sedation Evaluation ---
Pre-sedation evaluation - Pre-sedation checklist Date of procedure: 12/03/16 Procedure: egd Recent Vitals: Last Vital Signs Temp 99.1 F 12/03/16 16:45 Pulse 97 12/03/16 16:45 Resp 22 12/03/16 16:45 BP 217/82 12/03/16 16:45 Pulse Ox 98 12/03/16 16:45 H&P (including ROS) documented in medical record: Yes Previous reaction to sedatives/anesthetics: No Dietary Status: NPO 6 hours prior to procedure Airway Assessment: Patient can open mouth completely, TMJ function normal, Micrognathia (under-bite, receding chin) absent, Neck with adequate range of motion Dentition: dentures removed Possible difficult airway: No If Yes;: Morbid obesity ASA Classification *see protocol: CLASS III-Severe systemic disease Plan of Care: Pt appropriate candidate for procedure/moderate/conscious sedation , Risks/benefits of procedure/sedation discussed w/ patient/family, If not NPO; Risk of intake outweiged by necessity to perform procedure
[2016-12-03] MEDS: *HR* FentaNYL (PF) 100 MCG/2 ML VIAL IVP PRN ×2 (17:03→17:09)
[2016-12-03 19:33] LABS: Folate 1.7 ng/mL (7.0-31.4)
--- NOTE | 2016-12-03 19:58 | Oncology Inp Consult Note ---
Date of Encounter: 12/04/16 Time of Encounter: 19:54 Assessment and Plan (1) Pancytopenia Status: Acute Assessment and plan: This is new since September 2016. Most of it could be from imatinib. Hold imatinib for now. May restart it at a lower dose 200 mg a day once stable area Some of the pancytopenia is from very low B12 and folic acid level. Will replace that. B12 1000 g IM daily for 3 doses. Folic acid 1 mg IV. Followed by 1 mg by mouth daily She also has melena. EGD showed RBCs in the stomach indicating gastritis She is on Protonix IV. Ferritin 110 and iron levels are normal. If necessary consider IV iron replacement if iron level drops (2) CML (chronic myelocytic leukemia) Status: Chronic Assessment and plan: She responded well to imatinib. She is sensitive to 400 mg daily dose. We will hold that and resume at a lower dose. I had a long discussion with her. She is afraid to restart imatinib. We may try a different medication like nilotinib at a lower dose 150 mg twice a day She also has history of other cancers as mentioned above but doubt they are playing a role in her pancytopenia - Data of Consult Patient: known to practice within the last 3 years Requesting Physician: Jose Manuel Wong MD Primary Care Provider: Shaun Pace DO - Consult Narrative Reason for consult: CML, pancytopenia History of present illness: 86-year-old female admitted with symptomatic GI bleed including shortness of breath and melena. The patient was transferred to [facility] for further management and care. She describes anorexia and progressive weakness and fatigue. Progressive pancytopenia since September 2016 likely from imatinib Evaluated by Dr. mo. EGD 12/03/2016 showed RBCs in the stomach. Single polyp in the stomach removed and duodenum unremarkable Hematological history Patient was worked up at [facility] menorrhagia white blood cell count was markedly elevated at 134,000 normal hemoglobin and platelets, hemoglobin was 11.4 platelets of 217, fish on peripheral blood showed 97.6% Diagnosed with CML August 2016. On imatinib 400 mg a day. She follows up with Dr. SANTOS at [facility] She did have 10% blast cells, on 09/08/2016 with some metamyelocytes She became severely pancytopenic since September 2016 most likely from imatinib. Also MCV increased from 94-100. Current hemoglobin 6.7. Most of the pancytopenia could be related to imatinib. But she is very low on B12 and folic acid could be contributing to her pancytopenia and macrocytic anemia. Ferritin normal at 110 but ferritin is not acute face reactant. 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 Remote history of peptic ulcer disease/bleeding ulcer. Surgical history: Wide excision melanoma right leg with lymphadenectomy; partial mastectomy, hysterectomy; excision basal carcinoma right cheek Allergies: Albuterol, Cipro, codeine, IV iodine, and terazosin, prednisone, tetracycline Social history: Patient denies any current alcohol or tobacco use but admits to consuming both many years ago. Past Med Surg Social Fam HX - Past Medical History Medical history: cancer (CML, prior right lower extremity melanoma, breast cancer, facial skin cancer), COPD, GERD, hypertension, other (Right lower extremity lymphedema) Psychiatric history: no psych history - Past Surgical History Surgical History: cancer surgery (Right lower extremity melanoma excision and lymphatic dissection, facial skin cancer excision, breast lumpectomy), hysterectomy - Social History Smoking Status: Former smoker Smokeless Tobacco Status: No Alcohol use: none Drug use: none - Family History Mother Adopted: No Living Status: Age at : 65 Cause of : [place] Hx Family Cardiac Disorders: Yes (History of nine IL's) Hx Family Respiratory Disorders: No Hx Family Cancer: No Hx Family GI Disorders: No Hx Family Genitourinary Disorders: No Hx Family Endocrine Disorder: Yes (Severe Diabetic) Hx Family Musculoskeletal Disorders: No Hx Family Neuromuscular Disorders: No Hx Family Neurologic Disorders: No Hx Family HEENT Disorders: No Hx Family Autoimmune Disorders: No Hx Family Reproductive Disorders: No Hx Family Psychosocial Disorders: No Hx Family Medical Disorders: No Father Adopted: No Living Status: Age at : 89 Cause of : Stroke Hx Family Cardiac Disorders: Yes (Hypertension) Hx Family Respiratory Disorders: No Hx Family Cancer: No Hx Family GI Disorders: No Hx Family Genitourinary Disorders: No Hx Family Endocrine Disorder: No Hx Family Musculoskeletal Disorders: No Hx Family Neuromuscular Disorders: No Hx Family Neurologic Disorders: No Hx Family HEENT Disorders: No Hx Family Autoimmune Disorders: No Hx Family Reproductive Disorders: No Hx Family Psychosocial Disorders: No Hx Family Medical Disorders: No Medications and Allergies Imatinib Mesylate 400 mg PO DAILY #30 tablet 09/14/16 [Rx] Lansoprazole [Prevacid] 30 mg PO DAILY 09/14/16 [History] Losartan Potassium [Cozaar] 100 mg PO DAILY 09/14/16 [History] Meclizine [Antivert] 2 tab PO DAILY PRN 09/14/16 [History] Verapamil ER (24 HR) [Calan SR] 240 mg PO DAILY 09/14/16 [History] Metoprolol Tartrate [Lopressor] 25 mg PO BID 10/09/16 [History] Acetaminophen [Pain Relief] 500 mg PO Q4-6H PRN 11/30/16 [History] Ipratropium [ATROVENT Inhaler] 2 puff IH QID PRN 11/30/16 [History] Loratadine [Claritin] 10 mg PO DAILY 11/30/16 [History] Montelukast [Singulair] 10 mg PO DAILY 11/30/16 [History] Tiotropium [place] [Spiriva Respimat] 1 puff IH DAILY 11/30/16 [History] Allergies albuterol Adverse Reaction (Verified 11/30/16 09:53) Seizure ciprofloxacin [From Cipro] Adverse Reaction (Verified 11/30/16 09:53) Nausea codeine Adverse Reaction (Verified 11/30/16 09:53) Vomiting iodine Adverse Reaction (Verified 11/30/16 09:53) Fainting pentazocine [From Talwin] Adverse Reaction (Verified 11/30/16 09:53) Hypotension prednisone Adverse Reaction (Verified 06/10/15 09:09) See Comments Tetracycline Adverse Reaction (Verified 11/30/16 09:53) Unconscious steroids Adverse Reaction (Uncoded 06/10/15 09:09) Cramping of the Muscles Review of systems: Fatigue. Shortness of breath mild. No lower extremity edema. No chest pain. No major nausea or vomiting Oncology - Exam - Constitutional Vitals: Temp Pulse Resp BP Pulse Ox 98.1 F 97 14 147/77 95 12/03/16 19:03 12/03/16 19:03 12/03/16 19:03 12/03/16 19:03 12/03/16 19:03 Exam: GENERAL: Alert and oriented, fatigued Mental Status: Affect appropriate for circumstances HEENT: Sclerae anicteric. No mucositis or thrush. No other oral or pharyngeal lesions or erythema. Skin: No rashes or petechiae. No evidence of skin malignancy Lymph nodes: No cervical, supraclavicular, axillary, or inguinal adenopathy. Lungs: Air entry normal with normal breath sounds. No rhonchi or wheezing Cardiovascular: Regular rate and rhythm. No skipped beats Abdomen: Soft, mild epigastric tenderness; no organomegaly or masses palpable. Extremities: No edema. No calf swelling or tenderness. No joint deformity. Neurologic: Alert, cranial nerves II-XII intact; normal gait; no focal weakness or sensory abnormalities Oncology - Results - Labs Labs: Short CBC 12/03/16 Range/Units 03:58 WBC 2.1 L (4.3-11.1) K/mcL Hgb 6.7 L (11.5-15.4) g/dL Hct 21.7 L (35.3-44.9) % Plt Count 62 L (140-400) K/mcL Neutrophils # 1.3 L (1.6-8.9) K/mcL BMP 12/03/16 03:58 Sodium 139 Potassium 3.4 L Chloride 108 Carbon Dioxide 27 BUN 10 Creatinine 0.75 Glucose 96 Calcium 8.5 L Liver Function 12/03/16 Range/Units 03:58 Total Bilirubin 0.5 (0.2-1.2) mg/dL AST 25 (5-34) Units/L ALT 20 (0-55) Units/L Alkaline Phosphatase 37 L (38-126) Units/L Albumin 2.5 L (3.5-5.0) g/dL Consult Discharge Plan - Plan Referrals: Shaun Pace DO [Primary Care Provider] -
[2016-12-03] MEDS: Acetaminophen 325 MG TABLET PO PRN (20:05)
[2016-12-03] MEDS ORDERED: Folic Acid 1 MG in D5% in Water 50 ML IVPB ONE (20:09)
[2016-12-03 21:16] LABS: Thyroid Stimulating Hormone 0.602 mcIU/mL (0.350-4.840)
[2016-12-03] MEDS: Cyanocobalamin (B-12) 1,000 MCG/ML VIAL IM SCH (21:23)
[2016-12-04] MEDS: Pantoprazole 40 MG in 0.9 % Sodium Chloride Mini Bag 100 ML IVC SCH ×4 (02:39→20:28)
[2016-12-04 04:19] LABS: Basophils % 0.4 %; Eosinophils # 0.1 K/mcL (0.0-0.6); Eosinophils % 2.2 %; Hematocrit 27.2 % (35.3-44.9); Hemoglobin 8.8 g/dL (11.5-15.4); Immature Granulocytes % 2.5 % (0-4); Immature Platelets 3.7 % (1.1-6.1); Lymphocytes # 0.6 K/mcL (0.6-4.6); Lymphocytes % 20.2 %; Mean Corpuscular HGB Conc 32.4 g/dL (31.6-35.5); Mean Corpuscular Hemoglobin 31.4 pg (28.0-33.3); Mean Corpuscular Volume 97.1 fL (83.0-100.0); Mean Platelet Volume 10.3 fL (9.4-12.4); Monocytes # 0.3 K/mcL (0.0-1.3); Monocytes % 9.4 %; Neutrophils # 1.8 K/mcL (1.6-8.9); Segmented Neutrophils % 65.3 %
[2016-12-04 04:35] LABS: Platelet Count 59 K/mcL (140-400)
[2016-12-04 04:43] LABS: Alanine Aminotransferase 22 Units/L (0-55); Albumin 2.7 g/dL (3.5-5.0); Albumin/Globulin Ratio 1.2 (1.1-2.2); Alkaline Phosphatase 39 Units/L (38-126); BUN/Creatinine Ratio 15 (6-26); Bilirubin,Total 0.8 mg/dL (0.2-1.2); Blood Urea Nitrogen 12 mg/dL (7-20); Calcium 8.5 mg/dL (8.6-10.8); Carbon Dioxide 28 mEq/L (19-29); Chloride 106 mEq/L (98-109); Globulin 2.3 g/dL (2.4-3.5); Glucose 93 mg/dL (70-99); Osmolality,Calculated 287 (280-300); Sodium 139 mEq/L (136-145); eGFR For African Americans > 60 (> 60); eGFR For Non-African Americans > 60 (> 60)
[2016-12-04 04:44] LABS: Aspartate Amino Transferase 36 Units/L (5-34); Potassium 4.7 mEq/L (3.5-4.5)
[2016-12-04] MEDS: Levalbuterol Neb 1.25 MG/3 ML IH SCH ×5 (05:04→23:32)
[2016-12-04] MEDS: Ondansetron 4 MG/2 ML VIAL IVP PRN ×3 (08:40→20:42)
[2016-12-04] MEDS: Verapamil ER (24 HR) 240 MG TABLET.ER PO SCH (08:42)
[2016-12-04] MEDS: Cyanocobalamin (B-12) 1,000 MCG/ML VIAL IM SCH (08:42)
--- NOTE | 2016-12-04 10:38 | Internal Med Progress Note ---
Date of Encounter: 12/04/16 Time of Encounter: 10:36 - Assessment and plan (1) LLL pneumonia Current Visit: Yes Status: Suspected Assessment and plan: Patient presented with hypoxia and dyspnea and chest x-ray shows left-sided pleural effusion, underlying infiltrate cannot be excluded. Patient has been started on IV Rocephin and azithromycin-Day 5 today. We will continue to complete 7 days of IV antibiotics. Supportive care and supplemental oxygen. Qualifiers: Pneumonia type: due to unspecified organism Qualified Code(s): J18.1 - Lobar pneumonia, unspecified organism (2) Pleural effusion Current Visit: Yes Status: Acute Assessment and plan: Mild to moderate left-sided pleural effusion. Patient continues to be symptomatic with dyspnea and mild respiratory distress. Ultrasound-guided thoracentesis by IR today. Will send pleural fluid for analysis. (3) Anemia Current Visit: Yes Status: Acute Assessment and plan: Acute on chronic anemia secondary to upper GI bleed. Hemoglobin noted to be 8.8 today, stable. Patient received 3 units PRBC transfusion during this hospitalization. Continue to monitor hemoglobin closely. Patient is noted to have low vitamin B12 and folic acid levels, which are currently being supplemented. Qualifiers: Anemia type: other cause Other causes of anemia: acute posthemorrhagic Qualified Code(s): D62 - Acute posthemorrhagic anemia (4) GIB (gastrointestinal bleeding) Current Visit: Yes Status: Acute Assessment and plan: Upper GI bleed secondary to bleeding gastritis, heme arranged and gastric polyp. Surgery on board, patient underwent EGD that showed bleeding gastritis with some active bleeding. Pathology report pending. Continue IV Protonix drip , per surgery recommendations. Patient continues to have melena, which will probably continue for a few more days until upper GI tract is cleared of blood. Qualifiers: GI bleed type/associated pathology: melena Qualified Code(s): K92.1 - Melena (5) Physical deconditioning Current Visit: Yes Status: Chronic Assessment and plan: Secondary to symptomatic anemia and hypoxia. Physical and occupational therapy evaluation noted, recommend inpatient rehabilitation. new client banking services clerk consulted. (6) Pancytopenia Current Visit: Yes Status: Acute Assessment and plan: Hematology consult appreciated. Pancytopenia is new since September 2016 and is thought to be likely related to imatinib, the dose of which will be reduced as an outpatient and this is currently being held. Noted to have low levels of serum vitamin B12 and folic acid. Received 1 dose of IV folate, continue 1 mg by mouth daily. To receive 3 doses of intramuscular vitamin B12 1000 g daily. (7) COPD (chronic obstructive pulmonary disease) Current Visit: Yes Status: Chronic Assessment and plan: Not in acute exacerbation. Continue when necessary bronchodilators. Noted to be on home oxygen, continue supplemental oxygen via nasal cannula. Qualifiers: COPD type: unspecified COPD Qualified Code(s): J44.9 - Chronic obstructive pulmonary disease, unspecified (8) CML (chronic myelocytic leukemia) Current Visit: Yes Status: Chronic Assessment and plan: Outpatient hematology follow-up. Imatinib currently on hold. - Subjective Interval history: Continues to have shortness of breath, on [place] O2; reports nausea, epigastric pain and melena; unable to tolerate clear liquids due to nausea; underwent EGD yesterday which showed bleeding gastritis; - Constitutional Vitals: Temp Pulse Resp BP Pulse Ox 98.3 F 86 18 138/77 97 12/04/16 07:44 12/04/16 07:44 12/04/16 07:44 12/04/16 07:44 12/04/16 07:49 General appearance: Present: mild distress, A&O X 3, answers questions appropriately - Respiratory Respiratory exam: Present: decreased breath sounds (left base and midaxillary line). Absent: accessory muscle use, rales, rhonchi, wheezes - Cardiovascular Cardiovascular exam: Present: RRR, +S1, +S2. Absent: diastolic murmur, gallop, rubs, systolic murmur - GI/Abdominal GI/Abdominal exam: Present: normal bowel sounds, soft (epigastric tenderness+), no peritoneal signs. Absent: distended, tenderness - Extremities Exam Extremities exam: Present: pedal edema (chronic severe right leg edema and stasis dermatitis; left leg 2+ pedal edema), warm, radial pulses palpable and symetrical. Absent: calf tenderness, cyanotic - Neurological Exam Neurological exam: Present: CN II-XII intact, oriented X3, no focal deficits. Absent: pronater drift, facial droop, speech deficit Internal Medicine: Result - Labs CBC & Chem 7: 12/04/16 03:57 12/04/16 03:57 Labs: Short CBC 12/04/16 Range/Units 03:57 WBC 2.8 L (4.3-11.1) K/mcL Hgb 8.8 L D (11.5-15.4) g/dL Hct 27.2 L (35.3-44.9) % Plt Count 59 L (140-400) K/mcL Neutrophils # 1.8 (1.6-8.9) K/mcL BMP 12/04/16 03:57 Sodium 139 Potassium 4.7 H D Chloride 106 Carbon Dioxide 28 BUN 12 Creatinine 0.80 Glucose 93 Calcium 8.5 L Liver Function 12/04/16 Range/Units 03:57 Total Bilirubin 0.8 D (0.2-1.2) mg/dL AST 36 H (5-34) Units/L ALT 22 (0-55) Units/L Alkaline Phosphatase 39 (38-126) Units/L Albumin 2.7 L (3.5-5.0) g/dL - VTE Documentation of Mechanical Device: Intermittent pneumatic compression device Consult Discharge Plan - Plan Referrals: Shaun Pace DO [Primary Care Provider] -
[2016-12-04] MEDS: Tiotropium 18 MCG inhalation IH SCH (10:42)
[2016-12-04 11:00] LABS: INR 1.1
[2016-12-04 11:02] LABS: Activated Partial Thrombo Time 27.3 Seconds (26.0-36.0)
[2016-12-04 15:25] LABS: RBC,Pleural Fluid < 0.002 M/mcL
[2016-12-04] MEDS: Folic Acid 1 MG TABLET PO SCH (15:26)
[2016-12-04 15:29] LABS: LDH,Pleural Fluid 77 Units/L (No Ref Range)
[2016-12-04 15:30] LABS: Appearance of Pleural Fl Clear (Clear); Total Protein,Pleural Fluid 1.7 g/dL (No Ref Range)
[2016-12-04] MEDS: Azithromycin 500 MG in D5% in Water 250 ML IVPB SCH (15:35)
[2016-12-04] MEDS ORDERED: *HR* Promethazine 25 MG/ML VIAL IVP PRN (18:35)
[2016-12-05] MEDS: Pantoprazole 40 MG in 0.9 % Sodium Chloride Mini Bag 100 ML IVC SCH ×3 (01:42→11:02)
[2016-12-05] MEDS: Acetaminophen 325 MG TABLET PO PRN ×2 (01:45→20:21)
[2016-12-05] MEDS: Ondansetron 4 MG/2 ML VIAL IVP PRN ×3 (01:45→13:00)
[2016-12-05] MEDS: Levalbuterol Neb 1.25 MG/3 ML IH SCH ×3 (04:39→16:51)
[2016-12-05 07:08] LABS: Basophils % 0.4 %; Eosinophils % 1.6 %; Hematocrit 23.6 % (35.3-44.9); Hemoglobin 7.6 g/dL (11.5-15.4); Immature Granulocytes % 0.8 % (0-4); Lymphocytes # 0.6 K/mcL (0.6-4.6); Lymphocytes % 22.1 %; Mean Corpuscular HGB Conc 32.2 g/dL (31.6-35.5); Mean Corpuscular Hemoglobin 31.8 pg (28.0-33.3); Mean Corpuscular Volume 98.7 fL (83.0-100.0); Mean Platelet Volume 10.3 fL (9.4-12.4); Monocytes # 0.2 K/mcL (0.0-1.3); Monocytes % 8.1 %; Neutrophils # 1.7 K/mcL (1.6-8.9); Red Blood Count 2.39 M/mcL (3.82-4.97); Red Cell Distribution Width 17.3 % (11.5-14.5)
[2016-12-05 07:10] LABS: Platelet Count 50 K/mcL (140-400)
[2016-12-05 07:22] LABS: Alanine Aminotransferase 16 Units/L (0-55); Albumin 2.4 g/dL (3.5-5.0); Albumin/Globulin Ratio 1.4 (1.1-2.2); Alkaline Phosphatase 38 Units/L (38-126); Aspartate Amino Transferase 24 Units/L (5-34); BUN/Creatinine Ratio 20 (6-26); Bilirubin,Total 0.6 mg/dL (0.2-1.2); Blood Urea Nitrogen 14 mg/dL (7-20); Calcium 8.3 mg/dL (8.6-10.8); Carbon Dioxide 32 mEq/L (19-29); Chloride 106 mEq/L (98-109); Globulin 1.7 g/dL (2.4-3.5); Glucose 93 mg/dL (70-99); Osmolality,Calculated 288 (280-300); Sodium 139 mEq/L (136-145); eGFR For African Americans > 60 (> 60); eGFR For Non-African Americans > 60 (> 60)
[2016-12-05 07:25] LABS: Potassium 3.2 mEq/L (3.5-4.5); Total Protein 4.1 g/dL (6.0-8.3)
[2016-12-05] MEDS: Verapamil ER (24 HR) 240 MG TABLET.ER PO SCH (08:20)
[2016-12-05] MEDS: Folic Acid 1 MG TABLET PO SCH (08:20)
[2016-12-05] MEDS: Cyanocobalamin (B-12) 1,000 MCG/ML VIAL IM SCH (08:22)
[2016-12-05] MEDS ORDERED: Potassium Chloride Elixir 20 MEQ/15 ML UDC PO ONE (10:20)
[2016-12-05] MEDS: Tiotropium 18 MCG inhalation IH SCH (10:44)
[2016-12-05] MEDS: *HR* Promethazine 25 MG/ML VIAL IVP PRN ×3 (11:01→20:22)
[2016-12-05] MEDS ORDERED: Furosemide 40 MG/4 ML VIAL IVP ONE (12:44)
[2016-12-05] MEDS: Azithromycin 500 MG in D5% in Water 250 ML IVPB SCH (13:01)
--- NOTE | 2016-12-05 15:16 | Discharge Summary ---
Date of Encounter: 12/05/16 Time of Encounter: 11:40 - Discharge Diagnosis (1) LLL pneumonia Priority: Primary Status: Suspected Qualifiers: Pneumonia type: due to unspecified organism Qualified Code(s): J18.1 - Lobar pneumonia, unspecified organism (2) Pleural effusion Priority: Primary Status: Resolved (3) Anemia Priority: Primary Status: Acute Qualifiers: Anemia type: other cause Other causes of anemia: acute posthemorrhagic Qualified Code(s): D62 - Acute posthemorrhagic anemia (4) GIB (gastrointestinal bleeding) Priority: Primary Status: Acute Qualifiers: GI bleed type/associated pathology: melena Qualified Code(s): K92.1 - Melena (5) Physical deconditioning Priority: Primary Status: Chronic (6) Pancytopenia Priority: Primary Status: Acute (7) COPD (chronic obstructive pulmonary disease) Priority: Secondary Status: Chronic Qualifiers: COPD type: unspecified COPD Qualified Code(s): J44.9 - Chronic obstructive pulmonary disease, unspecified (8) CML (chronic myelocytic leukemia) Priority: Secondary Status: Chronic (9) FOX (obstructive sleep apnea) Priority: Secondary Status: Chronic - Discharge Medications Home Medications: Losartan Potassium [Cozaar] 100 mg PO DAILY 09/14/16 [History] Meclizine [Antivert] 2 tab PO DAILY PRN 09/14/16 [History] Verapamil ER (24 HR) [Calan SR] 240 mg PO DAILY 09/14/16 [History] Metoprolol Tartrate [Lopressor] 25 mg PO BID 10/09/16 [History] Acetaminophen [Pain Relief] 500 mg PO Q4-6H PRN 11/30/16 [History] Loratadine [Claritin] 10 mg PO DAILY 11/30/16 [History] Montelukast [Singulair] 10 mg PO DAILY 11/30/16 [History] Tiotropium [place] [Spiriva Respimat] 1 puff IH DAILY 11/30/16 [History] Folic Acid 1 mg PO DAILY tab 12/05/16 [Rx] Levalbuterol Neb [Xopenex Neb] 1.25 mg IH QIDR 12/05/16 [Rx] Ondansetron [Zofran] 4 mg IVP Q3HR PRN vial 12/05/16 [Rx] Pantoprazole [Protonix] 40 mg IVP Q12HR vial 12/05/16 [Rx] Promethazine [Phenergan] 12.5 mg IVP Q6HR PRN vial 12/05/16 [Rx] Allergies/Adverse Reactions: Allergies albuterol Adverse Reaction (Verified 11/30/16 09:53) Seizure ciprofloxacin [From Cipro] Adverse Reaction (Verified 11/30/16 09:53) Nausea codeine Adverse Reaction (Verified 11/30/16 09:53) Vomiting iodine Adverse Reaction (Verified 11/30/16 09:53) Fainting pentazocine [From Talwin] Adverse Reaction (Verified 11/30/16 09:53) Hypotension prednisone Adverse Reaction (Verified 06/10/15 09:09) See Comments Tetracycline Adverse Reaction (Verified 11/30/16 09:53) Unconscious steroids Adverse Reaction (Uncoded 06/10/15 09:09) Cramping of the Muscles Procedures/tests Complete & Pending: Procedures Performed prior 72 hours Category Date Time Status IR thoracentesis ultrasound [IR] Routine IR 12/04/16 10:34 Completed Date of admission: 12/03/16 18:27 Primary care physician: Shaun Pace DO Consults: 11/29/16 19:34 Consult to Occupational Therapy [CONS] Routine Comment: Evaluate, develop and implement POC Reason for Consult: pls assist in managing this pt, thanks Consult to Physical Therapy [CONS] Routine Comment: Evaluate, develop and implement POC Reason for Consult: pls assist in managing this pt, thanks 11/29/16 21:31 Consult to Surgery [CONS] Routine Consulting Provider: Arian Duong Reason for Consult: pls assist in managing this pt with melena ongoing since Saturday, thanks Call Completed: No 11/30/16 09:35 Consult to Welding Inspector [CONS] Routine Reason for SW Consult: recommending ECF placement 12/01/16 19:35 Consult to Invasive Line Access Team [CONS] Routine Reason for Consult: limited vascular access Line Type: EPIV 12/03/16 16:52 Consult to Oncology Hematology [CONS] Routine Consulting Provider: Lashae Diaz Reason for Consult: Pancytopenia patient is on Gleevec Time Notified: 16:53 Call Completed: Yes Discharging clinician: Sharron Lawler Anticipated date of discharge: 12/05/16 - Patient Status Disposition: Transfer Critical Access Hosp Condition: Fair Functional capacity at discharge: bed bound Overall status at discharge: patient is not back to baseline - Discharge Instructions Follow Up With: Shaun Pace DO [Primary Care Provider] - Hospital course: Ms. Desouza is a 86 year old female with history of COPD, obstructive sleep apnea, recently diagnosed CML was admitted with persistent nausea, epigastric pain, melena and symptomatic anemia. Patient received 3 units PRBC transfusion during this admission and continues to have drop in hemoglobin, noted to be 7.6 this morning. Surgery was consulted and patient underwent EGD that revealed significant gastritis associated with recent bleeding and continues to have melanotic stool. She has been started on IV Protonix drip. She continues to report significant nausea, dry heaves and epigastric pain and is unable to tolerate even clear liquids. Chest x-ray at the time of admission revealed mild to moderate left-sided pleural effusion, underlying pneumonia could not be excluded. She has been treated with 6 days of IV Rocephin and azithromycin. Patient underwent left- sided thoracentesis yesterday due to observed dyspnea while speaking full sentences. Pleural fluid is suggestive of transudative effusion with Gram stain and cultures so far negative. Patient is also noted to have peripheral edema and received a dose of IV Lasix today. She expressed concern about continuing to have the same symptoms with which she was admitted and requested to be transferred to [facility] for further management. Patient is known to oncology at [facility] as she was treated for breast cancer in the past along with recently diagnosed CML. Case was discussed with oncology hospitalist who kindly accepted this patient's care. She is medically stable for transfer to [facility] under 's care. - Time Spent with Patient Total time spent providing and/or coordinating discharge services: Greater than 30 minutes (45 min) - Constitutional Vitals: Temp Pulse Resp BP Pulse Ox 97.5 F L 76 17 146/60 99 12/05/16 11:38 12/05/16 11:38 12/05/16 11:38 12/05/16 11:38 12/05/16 11:38 General appearance: Present: mild distress (due to nausea and dry heaves), A&O X 3, answers questions appropriately - Respiratory Respiratory exam: Present: CTAB (improved breath sounds at left base). Absent: accessory muscle use, rales, rhonchi, wheezes - Cardiovascular Cardiovascular exam: Present: RRR, +S1, +S2. Absent: diastolic murmur, gallop, rubs, systolic murmur - VTE Documentation of Mechanical Device: Intermittent pneumatic compression device
--- NOTE | 2016-12-05 16:44 | Oncology Inp Progress Note ---
Date of Encounter: 12/05/16 Time of Encounter: 12:00 Oncology: Subj Interval history: NAuseated, no emesis, abd discomfort minimal, leg swelling ASSESSMENT/PLAN: CML, gleevec on hold, started at WBC 100k, labs in 09/26 WBC delined to 50k, in November she is pancytopenic. LAbs--B12 and folate profoundly low--on supplementation. s/p EGD--severe inflammation with hge in stomach. On PPI, anti emetics Adi lower ext swelling, left pleural effusion--s/p thoracentesis, possibly related to gleevec, echocardiogram pending Patient is SOB while talking and in distress due to nauseated feeling. Discussed with patient and family--concerned about her showing no improvement and if she can be transferred to [facility]. Hospitalist contacted with patient's wishes and will be transferred once bed available, she had her initial diagnosis at [facility]. - Constitutional Vitals: Vital Signs Temp Pulse Resp BP Pulse Ox 12/05/16 16:03 98.6 F 93 18 169/65 93 12/05/16 11:38 97.5 F L 76 17 146/60 99 12/05/16 07:23 98.4 F 82 17 146/67 96 12/05/16 07:06 96 12/05/16 04:41 16 96 12/05/16 04:15 98.7 F 79 15 124/68 98 12/04/16 23:34 16 99 12/04/16 23:15 98.4 F 90 18 138/68 99 12/04/16 20:00 99 12/04/16 19:44 98.5 F 93 20 138/66 99 12/04/16 18:29 18 93 Intake and Output 12/05/16 12/05/16 12/05/16 07:59 15:59 23:59 Intake Total 200 / 200 452 / 452 100 / 100 Balance 200 / 200 452 / 452 100 / 100 Intake: IV Fluids 200 / 200 452 / 452 100 / 100 Protonix 40 MG In 0.9 % 200 / 200 100 / 100 100 / 100 Sodium Chloride (Mini-Bag +) 100 ML @ 20 mls/hr IVC .Q5H [facility] Rx#: [id number] Zithromax 500 mg In 252 / 252 Dextrose 5% 250 ML @ 252 mls/hr IVPB Q24H [facility] Rx#: [id number] Rocephin 1,000 MG In 100 / 100 Dextrose 5% (Minibag+) 100 ML 100 ML @ 200 mls/ hr IVPB DAILY [facility] Rx#: [id number] Oral 0 / 0 0 / 0 Other: Meal Lunch Percent of Meal Consumed 0% Stool Size Moderate Stool Consistency loose Stool Color Brown Green # Voids 1 1 1 # Bowel Movements 2 1 Weight 120.4 kg 120.4 kg Blood Glucose* 96 Patient Weight 12/05/16 23:59 Weight 120.4 kg General appearance: obese - Head Head exam: Present: atraumatic, normal inspection - Eye Eye exam: Present: sclera anicteric - ENT ENT exam: Present: mucous membranes moist - Neck Neck exam: Present: full ROM - Respiratory Respiratory exam: Present: CTAB - Cardiovascular Cardiovascular exam: Present: +S1, +S2 - GI/Abdominal GI/Abdominal exam: Present: normal bowel sounds, soft Additional comments: non tender - Extremities Exam Extremities exam: Present: normal inspection - Neurological Exam Neurological exam: Present: alert, oriented X3 Oncology: Obj Data - Labs CBC & Chem 7: 12/05/16 06:30 12/05/16 06:30 Labs: Laboratory Results - last 24 hr 12/04/16 12/05/16 12/05/16 13:55 06:30 06:30 WBC 2.6 L RBC 2.39 L Hgb 7.6 L Hct 23.6 L MCV 98.7 MCH 31.8 MCHC 32.2 RDW 17.3 H Plt Count 50 L MPV 10.3 Immature Gran % 0.8 Seg Neutrophils % 67.0 Lymphocytes % 22.1 Monocytes % 8.1 Eosinophils % 1.6 Basophils % 0.4 Neutrophils # 1.7 Lymphocytes # 0.6 Monocytes # 0.2 Eosinophils # 0.0 Basophils # 0.0 Sodium 139 Potassium 3.2 L D Chloride 106 Carbon Dioxide 32 H BUN 14 Creatinine 0.69 Est GFR ( Amer) > 60 Est GFR (Non-Af Amer) > 60 BUN/Creatinine Ratio 20 Glucose 93 Calculated Osmolality 288 Calcium 8.3 L Total Bilirubin 0.6 AST 24 ALT 16 Alkaline Phosphatase 38 Serum Total Protein 4.1 L Albumin 2.4 L Globulin 1.7 L Albumin/Globulin Ratio 1.4 Pleural Neutrophils 4.0 Pleural Band Neuts 1.0 Pleural Eosinophils Test Not Performed Pleural Basophils Test Not Performed Pleural Lymphocytes % 91.0 Pleural Monocytes % 2.0 Pleural Other Cells % 2.0 - ABG Interpretation ABG results: PT/INR, D-dimer PT 12.0 Seconds (9.4-12.1) 12/04/16 10:40 Consult Discharge Plan - Plan Referrals: Shaun Pace DO [Primary Care Provider] -
[2016-12-05] MEDS ORDERED: Pantoprazole 40 MG VIAL IVP SCH (18:00)
[2016-12-05 19:08] VITALS: BP 143/75
--- NOTE | 2016-12-05 19:35 | Oncology Inp Progress Note ---
Date of Encounter: 12/05/16 Time of Encounter: 19:33 (1) Pancytopenia Current Visit: Yes Status: Acute Assessment and plan: This is new since September 2016. Most of it could be from imatinib. Hold imatinib for now. She is afraid to go back on imatinib. She also wants to get our opinion at [facility] which is reasonable. Her options include starting imatinib but 200 mg a day versus switching to second-generation agents like nilotinib at a lower dose 150 mg twice a day Some of the pancytopenia is from very low B12 and folic acid level. Will replace that. B12 1000 g IM daily for 3 doses. Folic acid 1 mg IV. Followed by 1 mg by mouth daily She also has melena. EGD showed RBCs in the stomach indicating gastritis She is on Protonix IV. Ferritin 110 and iron levels are normal. Her hemoglobin did drop to 7.6 (2) CML (chronic myelocytic leukemia) Current Visit: Yes Status: Chronic Assessment and plan: She responded well to imatinib. She is sensitive to 400 mg daily dose. We will hold it for now Had a long discussion with them. They want to know if TPN is necessary. It may not be necessary unless she is rectal or in the next few days We can increase the frequency of Zofran IV as its helping Oncology: Subj Interval history: Extensive nausea. Zofran IV helps but it is not holding her for 6 hours. Phenergan IV ordered. Fatigue - Constitutional Vitals: Vital Signs Temp Pulse Resp BP Pulse Ox 12/05/16 19:06 98.0 F 93 20 143/75 100 12/05/16 16:51 18 100 12/05/16 16:03 98.6 F 93 18 169/65 93 12/05/16 11:38 97.5 F L 76 17 146/60 99 12/05/16 10:43 18 99 12/05/16 07:23 98.4 F 82 17 146/67 96 12/05/16 07:06 96 12/05/16 04:41 16 96 12/05/16 04:15 98.7 F 79 15 124/68 98 12/04/16 23:34 16 99 12/04/16 23:15 98.4 F 90 18 138/68 99 12/04/16 20:00 99 12/04/16 19:44 98.5 F 93 20 138/66 99 Intake and Output 07/26/17 07/26/17 07/26/17 07:59 15:59 23:59 Intake Total 200 / 200 452 / 452 160 / 160 Output Total 500 / 500 Balance 200 / 200 452 / 452 -340 / -340 Intake: IV Fluids 200 / 200 452 / 452 100 / 100 Protonix 40 MG In 0.9 % 200 / 200 100 / 100 100 / 100 Sodium Chloride (Mini-Bag +) 100 ML @ 20 mls/hr IVC .Q5H LINDA Rx#: [id number] Zithromax 500 mg In 252 / 252 Dextrose 5% 250 ML @ 252 mls/hr IVPB Q24H LINDA Rx#: [id number] Rocephin 1,000 MG In 100 / 100 Dextrose 5% (Minibag+) 100 ML 100 ML @ 200 mls/ hr IVPB DAILY LINDA Rx#: [id number] Oral 0 / 0 0 / 0 60 / 60 Output: Urine 500 / 500 Other: Meal Lunch Percent of Meal Consumed 0% Stool Size Moderate Small Stool Consistency loose formed Stool Characteristics Tarry Stool Color Brown Green # Voids 1 1 1 # Bowel Movements 2 1 Weight 120.4 kg 120.4 kg Blood Glucose* 96 Patient Weight 12/05/16 23:59 Weight 120.4 kg Oncology: Obj Data - Labs CBC & Chem 7: 12/05/16 06:30 12/05/16 06:30 Labs: Laboratory Results - last 24 hr 12/05/16 12/05/16 06:30 06:30 WBC 2.6 L RBC 2.39 L Hgb 7.6 L Hct 23.6 L MCV 98.7 MCH 31.8 MCHC 32.2 RDW 17.3 H Plt Count 50 L MPV 10.3 Immature Gran % 0.8 Seg Neutrophils % 67.0 Lymphocytes % 22.1 Monocytes % 8.1 Eosinophils % 1.6 Basophils % 0.4 Neutrophils # 1.7 Lymphocytes # 0.6 Monocytes # 0.2 Eosinophils # 0.0 Basophils # 0.0 Sodium 139 Potassium 3.2 L D Chloride 106 Carbon Dioxide 32 H BUN 14 Creatinine 0.69 Est GFR ( Amer) > 60 Est GFR (Non-Af Amer) > 60 BUN/Creatinine Ratio 20 Glucose 93 Calculated Osmolality 288 Calcium 8.3 L Total Bilirubin 0.6 AST 24 ALT 16 Alkaline Phosphatase 38 Serum Total Protein 4.1 L Albumin 2.4 L Globulin 1.7 L Albumin/Globulin Ratio 1.4 - ABG Interpretation ABG results: PT/INR, D-dimer PT 12.0 Seconds (9.4-12.1) 12/04/16 10:40 Consult Discharge Plan - Plan Referrals: Shaun Pace DO [Primary Care Provider] -
[2016-12-09 16:56] LABS: BCR-ABL1 Source NOT SPECIFIED; BCR-ABL1/ABL1 p210 Quant Ratio 0.39815
[2016-12-10 07:49] LABS: BCR-ABL1 Major (p210) Result DETECTED
== END 2016-12-05 21:02 | disposition other institution (70) | DRG 840 ==
LOC: 3ANU → SUATTDRO 12-03 18:27
PROVIDERS: ADMIT Internal Medicine; ATTEND Internal Medicine
PROC: ENDOEBX (2016-12-03 17:00)

== ENCOUNTER 2017-10-28 08:37 | Inpatient (IN) ==
--- NOTE | 2017-10-28 08:45 | Emergency Department Note ---
Disposition Clinical Impression: Pericardial effusion, NSTEMI (non-ST elevated myocardial infarction) Chest pain Qualifiers: Chest pain type: unspecified Qualified Code(s): R07.9 - Chest pain, unspecified Disposition: Admitted As Inpatient Condition: Good Referrals: Shaun Pace DO [Primary Care Provider] - Forms: ED Satisfaction Letter Time of Disposition: 11:49 Chest Pain HPI - General Chief Complaint: ED Chest Pain Stated Complaint: Intermittent CP X 3 weeks Time Seen by Provider: 10/28/17 08:40 Vital Signs Reviewed: Yes Nursing Notes Reviewed: Yes - History of Present Illness HPI Narrative: Chest pressure in the center of her chest. Does get some mild relief with pressing on her chest. Pain radiates to her back. Was given nitroglycerin baby aspirin with some relief of the pain as well. No associated shortness of breath. Has been present for 3 weeks intermittently. Patient states it feels like the same pain. Had previously gotten relief with antacids however since last night antacids or not helping. Does have history of peptic ulcer disease. She states this feels similar. - Related Data Home Medications Medication Instructions Recorded Confirmed Losartan Potassium [Cozaar] 100 mg PO DAILY 09/14/16 10/28/17 Meclizine [Antivert] 25 mg PO DAILY PRN 09/14/16 10/28/17 Verapamil ER (24 HR) [Calan SR] 240 mg PO DAILY 09/14/16 10/28/17 Metoprolol Tartrate [Lopressor] 12.5 mg PO BID 10/09/16 10/28/17 Montelukast [Singulair] 10 mg PO DAILY 11/30/16 10/28/17 Tiotropium [place] [Spiriva 2 puff IH DAILY 11/30/16 10/28/17 Respimat] Diclofenac Sodium [Voltaren] 1 appl TP BID 02/12/17 10/28/17 Cholecalciferol (Vitamin D3) 2,000 unit PO DAILY 05/14/17 10/28/17 [Vitamin D] Multivitamin [Multivitamins] 1 each PO DAILY 05/14/17 10/28/17 Previous Rx's Medication Instructions Recorded Folic Acid 1 mg PO DAILY #90 tablet 12/25/16 Nilotinib HCl [Tasigna] 300 mg PO BID #120 capsule 05/14/17 Omeprazole [PriLOSEC] 40 mg PO DAILY #30 cap 07/26/17 Allergies Allergy/AdvReac Type Severity Reaction Status Date / Time albuterol AdvReac Seizure Verified 10/28/17 10:12 ciprofloxacin [From Cipro] AdvReac Nausea Verified 10/28/17 10:12 codeine AdvReac Vomiting Verified 10/28/17 10:12 iodine AdvReac Fainting Verified 10/28/17 10:12 pentazocine [From Talwin] AdvReac Hypotension Verified 10/28/17 10:12 prednisone AdvReac See Verified 10/28/17 10:12 Comments Tetracycline AdvReac Unconscious Verified 10/28/17 10:12 steroids AdvReac Cramping Uncoded 10/28/17 10:12 of the Muscles All systems ED: reviewed and negative except as stated. Constitutional: Denies: fever, chills ENT ED: Denies: congestion Cardiovascular: Reports: chest pain (That radiates to her back) Respiratory: Denies: cough, dyspnea, sputum production Gastrointestinal: Reports: nausea (Associated with the chest pain). Denies: abdominal pain, vomiting, diarrhea, hematemesis, melena, hematochezia Musculoskeletal: Denies: back pain Chest Pain PMH - Past Medical History Medical history: Reports: cancer (CML, prior right lower extremity melanoma, breast cancer, facial skin cancer), COPD, GERD, hypertension, other (Right lower extremity lymphedema) Surgical history: Reports: cancer surgery (Right lower extremity melanoma excision and lymphatic dissection, facial skin cancer excision, breast lumpectomy), hysterectomy Psychiatric history: Reports: no psych history - Social History Smoking Status: Former smoker Alcohol use: Reports: none Drug use: Reports: none Physical Exam - General Limitations: no limitations General appearance: alert, in no apparent distress - Head Head exam: atraumatic, normocephalic, normal inspection - Eye Eye exam: Present: normal appearance, PERRL, EOMI - ENT ENT exam: normal exam, normal oropharynx, mucous membranes moist - Neck Neck exam: Present: normal inspection, full ROM, trachea midline - Chest Chest inspection: Present: normal inspection, symmetric chest wall rise - Respiratory Respiratory exam: Present: normal lung sounds bilaterally. Absent: respiratory distress, accessory muscle use - Cardiovascular Cardiovascular exam: Present: regular rate, normal rhythm, normal heart sounds - Abdominal Exam Abdominal exam: Present: soft, Non-Tender. Absent: tenderness, distention, rigidity, organomegaly - Extremities Exam Extremities exam: Present: normal inspection, full ROM, normal capillary refill , pedal edema (Right lower extremity. Pitting.). Absent: tenderness - Neurological Exam Neurological exam: Present: alert, oriented X3 - Psychiatric Psychiatric exam: Present: normal affect, normal mood - Skin Skin exam: Present: warm, dry, intact, normal color. Absent: rash, cyanosis, diaphoresis, erythema Course Course Narrative: Three-week history of intermittent chest pain. The pain got worse and constant last night. He states that she believed that it was her Stomach ulcers and she has been taking her antacids with some relief. However last night she started having a constant chest pain in the center of her chest. She states she does get relief from it with she presses. She did try antacids with no relief. She has had a cardiac catheter with no stents placed. She does report a history of COPD. She has no cough scolds congestions currently. She denies any shortness of breath associated with this. She does have a right-sided unilateral leg swelling however she states that this is from lymph nodes being removed and that is been present for the past 30 years. She has no history of DVT or PE. She denies any fevers or chills. She called EMS this morning because of her chest pain. EMS gave her 4 baby aspirin and 2 nitroglycerin. She was initially hypertensive in the 200 systolic. The 2 nitroglycerin brought her down to 140 systolic. Patient states that her pain went from a 40 out of 10 down to a 6 out of 10. She appears to be resting comfortably at this time. She does not appear to be in distress. On sounds are clear heart tones are normal. She does wear oxygen at night for her COPD. We will get a chest x-ray EKG and basic lab workup. I anticipate admission. - Reevaluation(s) Reevaluation #1: Patient reassessed. She states her pain is back. She is now 195 systolic. She states that she did not take her hypertensive medication this morning. She states that she generally takes half of the metoprolol as well as her verapamil in the morning. We will provide her with this as well as sublingual and paste nitroglycerin. Time: 09:19 Reevaluation #2: Patient reassessed. Patient had 2 nitroglycerin sublingual and nitroglycerin paste placed to her chest and she states she is feeling better at this time. She states she still has a mild amount of chest pain however is really decreased. We will get a CT of patient's chest abdomen and pelvis to assess her aorta. Patient states she has an allergy to iodine. She also states she has an allergy to prednisone. She is refusing the Solu-Medrol at this time. I went to speak with her and it appears as if she has adverse reaction but she is adamantly refusing the Solu-Medrol. Patient states she has a cardiac catheter done recently and had Benadryl only prior to the IV contrast. She states she did well with no allergic reaction at that time. We will proceed with just Benadryl this time. Time: 09:56 Reevaluation #3: Patient back from CT. She states that she is having the pain significantly again. We will place patient on nitroglycerin drip and get a repeat EKG. She has an oxygen saturation in the mid 90s on room air at this time. Lung sounds are still clear. She states she is nauseated from the dye. We will provide her with antemetics Time: 11:13 Additional Reevaluation(s): 12:01 patient reassessed. We discussed that patient has a pericardial effusion as well as an increase in her troponin level. We will be starting on heparin. She expressed understanding. We will admit patient to the hospital. She states that her pain has decreased significantly at this time. She does not appear to be in distress while she is resting in bed. She expresses that she does not wish to be placed on a ventilator. She does want to have CPR performed however. - Consultations Consultation #1: Dr Ozuna accepted Pt in stable condition Time: 12:05 Consultation #2: I spoke with Dr Snow. She had no further recommendations and states that they will consult. Time: 12:18 Vital Signs Temperature 98.1 F 10/28/17 08:38 Pulse Rate 79 10/28/17 08:38 Respiratory Rate 18 10/28/17 08:38 Blood Pressure 196/76 10/28/17 08:38 O2 Sat by Pulse Oximetry 97 10/28/17 08:38 Temperature 98.1 F 10/28/17 08:38 Pulse Rate 73 10/28/17 11:29 Respiratory Rate 18 10/28/17 11:29 Blood Pressure 153/76 10/28/17 11:29 O2 Sat by Pulse Oximetry 97 10/28/17 11:29 Oxygen Delivery Oxygen Delivery Room Air Chest Pain - Medical Records Medical records reviewed: Yes I reviewed the patient's medical records. - Lab Data Lab results reviewed: Yes I reviewed the patient's lab results. Result diagrams: 10/28/17 08:50 10/28/17 08:50 Lab Results 10/28/17 10/28/17 Range/Units 08:50 08:50 WBC 8.2 (4.3-11.1) K/mcL RBC 3.91 (3.82-4.97) M/mcL Hgb 11.2 L (11.5-15.4) g/dL Hct 35.0 L (35.3-44.9) % MCV 89.5 (83.0-100.0) fL MCH 28.6 (28.0-33.3) pg MCHC 32.0 (31.6-35.5) g/dL RDW 15.0 H (11.5-14.5) % Plt Count 237 (140-400) K/mcL MPV 9.2 L (9.4-12.4) fL Immature Gran % 0.9 (0-4) % Seg Neutrophils % 59.8 % Lymphocytes % 27.5 % Monocytes % 7.2 % Eosinophils % 3.9 % Basophils % 0.7 % Neutrophils # 4.9 (1.6-8.9) K/mcL Lymphocytes # 2.3 (0.6-4.6) K/mcL Monocytes # 0.6 (0.0-1.3) K/mcL Eosinophils # 0.3 (0.0-0.6) K/mcL Basophils # 0.1 (0.0-0.2) K/mcL Sodium 139 (136-145) mEq/L Potassium 3.8 (3.5-5.1) mEq/L Chloride 108 H (98-107) mEq/L Carbon Dioxide 25 (23-29) mEq/L BUN 20 (8-23) mg/dL Creatinine 0.73 (0.60-1.20) mg/dL Est GFR ( Amer) > 60 (> 60) Est GFR (Non-Af Amer) > 60 (> 60) BUN/Creatinine Ratio 27 H (6-26) Glucose 112 H (70-105) mg/dL Calculated Osmolality 291 (280-300) Calcium 10.0 (8.6-10.3) mg/dL Total Bilirubin 0.5 (0.3-1.0) mg/dL AST 10 L (13-39) Units/L ALT 6 L (7-52) Units/L Alkaline Phosphatase 72 (34-104) Units/L Troponin I 0.06 H* (< 0.04) ng/mL Serum Total Protein 6.2 L (6.4-8.9) g/dL Albumin 3.5 (3.5-5.7) g/dL Globulin 2.7 (2.4-3.5) g/dL Albumin/Globulin Ratio 1.3 (1.1-2.2) - Radiology Data Radiology results reviewed: Yes I reviewed the patient's radiology results. Chest X-Ray 10/28/17 08:40 IMPRESSION: No acute process. D/ / 10/28/2017 09:47:14 Callum Hughes MD / jameson Interpreting Provider: Callum Hughes MD Chest CTA 10/28/17 09:27 IMPRESSION: 1. No evidence of aortic dissection or aneurysm 2. No evidence of pulmonary embolism 3. No acute intrathoracic or intra abdominopelvic process 4. Calcific Coronary atherosclerosis with small pericardial effusion 5. Stable 1.7 cm right renal lesion, most likely a complicated cyst with solid mass in the differential. Dedicated pre and post contrast imaging would be helpful 6. Right adrenal adenoma 7. Colonic diverticulosis D/ / Jeb Mendoza MD / Jeb Mendoza MD Interpreting Provider: Jeb Mendoza MD - EKG Data EKG attestation: Yes I reviewed and interpreted this EKG. EKG results narrative: Normal sinus rhythm at a rate of 78. MS interval is 201. QRS patient is 94. QT is 383. QTC is 416. No signs of acute ischemia. Good R-wave progression. No significant change from Previous EKG dated 12/25/2016.
--- NOTE | 2017-10-28 08:55 | Emergency Department Note ---
Disposition Clinical Impression: Chest pain, Pericardial effusion, NSTEMI (non-ST elevated myocardial infarction ) Disposition: Admitted As Inpatient Condition: Good General Adult HPI - General Chief complaint: ED Chest Pain Stated complaint: Intermittent CP X 3 weeks Time Seen by Provider: 10/28/17 08:40 Source: EMS Limitations: no limitations Nursing Notes Reviewed: Yes Vital Signs Reviewed: Yes - History of Present Illness Pain Scale: 6 - Related Data Home Medications Medication Instructions Recorded Confirmed Losartan Potassium [Cozaar] 100 mg PO DAILY 09/14/16 10/28/17 Meclizine [Antivert] 25 mg PO DAILY PRN 09/14/16 10/28/17 Verapamil ER (24 HR) [Calan SR] 240 mg PO DAILY 09/14/16 10/28/17 Metoprolol Tartrate [Lopressor] 12.5 mg PO BID 10/09/16 10/28/17 Montelukast [Singulair] 10 mg PO DAILY 11/30/16 10/28/17 Tiotropium [place] [Spiriva 2 puff IH DAILY 11/30/16 10/28/17 Respimat] Diclofenac Sodium [Voltaren] 1 appl TP BID 02/12/17 10/28/17 Cholecalciferol (Vitamin D3) 2,000 unit PO DAILY 05/14/17 10/28/17 [Vitamin D] Multivitamin [Multivitamins] 1 each PO DAILY 05/14/17 10/28/17 Previous Rx's Medication Instructions Recorded Folic Acid 1 mg PO DAILY #90 tablet 12/25/16 Nilotinib HCl [Tasigna] 300 mg PO BID #120 capsule 05/14/17 Omeprazole [PriLOSEC] 40 mg PO DAILY #30 cap 07/26/17 Allergies Allergy/AdvReac Type Severity Reaction Status Date / Time albuterol AdvReac Seizure Verified 10/28/17 10:12 ciprofloxacin [From Cipro] AdvReac Nausea Verified 10/28/17 10:12 codeine AdvReac Vomiting Verified 10/28/17 10:12 iodine AdvReac Fainting Verified 10/28/17 10:12 pentazocine [From Talwin] AdvReac Hypotension Verified 10/28/17 10:12 prednisone AdvReac See Verified 10/28/17 10:12 Comments Tetracycline AdvReac Unconscious Verified 10/28/17 10:12 steroids AdvReac Cramping Uncoded 10/28/17 10:12 of the Muscles Constitutional: Denies: fever, chills ENT ED: Denies: congestion Cardiovascular: Reports: chest pain (That radiates to her back) Respiratory: Denies: cough, dyspnea, sputum production Gastrointestinal: Reports: nausea (Associated with the chest pain). Denies: abdominal pain, vomiting, diarrhea, hematemesis, melena, hematochezia Musculoskeletal: Denies: back pain Past Medical History - Past Medical History Medical history: Reports: cancer (CML, prior right lower extremity melanoma, breast cancer, facial skin cancer), COPD, GERD, hypertension, other (Right lower extremity lymphedema) Surgical history: Reports: cancer surgery (Right lower extremity melanoma excision and lymphatic dissection, facial skin cancer excision, breast lumpectomy), hysterectomy Psychiatric history: Reports: no psych history - Social History Smoking Status: Former smoker Smokeless Tobacco Status: No Alcohol use: Reports: none Drug use: Reports: none Physical Exam - General Limitations: no limitations General appearance: alert, in no apparent distress Course Vital Signs Temperature 98.1 F 10/28/17 08:38 Pulse Rate 79 10/28/17 08:38 Respiratory Rate 18 10/28/17 08:38 Blood Pressure 196/76 10/28/17 08:38 O2 Sat by Pulse Oximetry 97 10/28/17 08:38 Temperature 98.1 F 10/28/17 08:38 Pulse Rate 83 10/28/17 17:21 Respiratory Rate 16 10/28/17 17:21 Blood Pressure 179/80 10/28/17 17:21 O2 Sat by Pulse Oximetry 96 10/28/17 17:21 Oxygen Delivery Oxygen Delivery Room Air Medical Decision Making - [facility] Narrative Medical decision making narrative: Chest X-Ray 10/28/17 08:40 IMPRESSION: No acute process. D/ / Callum Hughes MD / Callum Hughes MD Interpreting Provider: Callum Hughes MD 09 and 40 hours: Because she has high blood pressure and with her symptoms of pain going into her back this could be cardiac colic, GI could be aorta. Greater looks generous on her chest x-ray but not enlarged. We talked about doing a CTA. She has had an allergy to contrast in the past but has had a catheter done after getting Benadryl. She does not want steroids with this because she says steroids made her bedridden for 4 months afterwards which does not seem plausible. She refuses nonetheless. She will do the CTA and with Benadryl. We spoke with CAT scan about that. The goal is if she is on nitroglycerin and her CT is negative. Also heparinized her. Since she has this pattern of pain in her chest that is crescendo decrescendo. Both worse we will make sure she has no enlargement of the aorta or dissection. She is in agreement with this plan. - Lab Data Result diagrams: 10/28/17 08:50 10/28/17 08:50 Lab Results 10/28/17 10/28/17 10/28/17 Range/Units 08:50 08:50 08:51 WBC 8.2 (4.3-11.1) K/mcL RBC 3.91 (3.82-4.97) M/mcL Hgb 11.2 L (11.5-15.4) g/dL Hct 35.0 L (35.3-44.9) % MCV 89.5 (83.0-100.0) fL MCH 28.6 (28.0-33.3) pg MCHC 32.0 (31.6-35.5) g/dL RDW 15.0 H (11.5-14.5) % Plt Count 237 (140-400) K/mcL MPV 9.2 L (9.4-12.4) fL Immature Gran % 0.9 (0-4) % Seg Neutrophils % 59.8 % Lymphocytes % 27.5 % Monocytes % 7.2 % Eosinophils % 3.9 % Basophils % 0.7 % Neutrophils # 4.9 (1.6-8.9) K/mcL Lymphocytes # 2.3 (0.6-4.6) K/mcL Monocytes # 0.6 (0.0-1.3) K/mcL Eosinophils # 0.3 (0.0-0.6) K/mcL Basophils # 0.1 (0.0-0.2) K/mcL PT 10.1 (9.4-12.1) Seconds INR 0.9 APTT 36.5 H (26.0-36.0) Seconds Sodium 139 (136-145) mEq/L Potassium 3.8 (3.5-5.1) mEq/L Chloride 108 H (98-107) mEq/L Carbon Dioxide 25 (23-29) mEq/L BUN 20 (8-23) mg/dL Creatinine 0.73 (0.60-1.20) mg/dL Est GFR ( Amer) > 60 (> 60) Est GFR (Non-Af Amer) > 60 (> 60) BUN/Creatinine Ratio 27 H (6-26) Glucose 112 H (70-105) mg/dL Calculated Osmolality 291 (280-300) Calcium 10.0 (8.6-10.3) mg/dL Total Bilirubin 0.5 (0.3-1.0) mg/dL AST 10 L (13-39) Units/L ALT 6 L (7-52) Units/L Alkaline Phosphatase 72 (34-104) Units/L Troponin I 0.06 H* (< 0.04) ng/mL Serum Total Protein 6.2 L (6.4-8.9) g/dL Albumin 3.5 (3.5-5.7) g/dL Globulin 2.7 (2.4-3.5) g/dL Albumin/Globulin Ratio 1.3 (1.1-2.2) Attestation Statement - Attestation Attestation: This documentation is done with the assistance of Dragon dictation. Despite efforts made to ensure accuracy, there may be inaccuracies in sports intern or spelling and typographical errors. I examined this patient and my medical decision-making was reviewed with the Resident Physician. I agree with the documented findings, disposition and treatment plan as described except to the extent set forth below. Patient seen and evaluated on arrival with EMS and Dr. Pritchard, I agree with her evaluation and management plan, I supervised the care the patient's stay. Patient's been having intermittent chest pain going on for 3 weeks. She thought it was heartburn but continues pain goes into her back. She denies a nausea and no fever she has a history of coronary disease with a CABG done back 5 years ago. She did get aspirin and nitroglycerin question this morning her pains improved. She does have edema in her lower extremities which she thinks is chronic. [facility] cardiac workup on her and reassess. She also has a history of CML. Patient's in agreement with this plan most likely will need admission.
[2017-10-28 09:00] LABS: Basophils # 0.1 K/mcL (0.0-0.2); Basophils % 0.7 %; Eosinophils # 0.3 K/mcL (0.0-0.6); Eosinophils % 3.9 %; Hemoglobin 11.2 g/dL (11.5-15.4); Immature Granulocytes % 0.9 % (0-4); Lymphocytes # 2.3 K/mcL (0.6-4.6); Lymphocytes % 27.5 %; Mean Corpuscular Hemoglobin 28.6 pg (28.0-33.3); Mean Corpuscular Volume 89.5 fL (83.0-100.0); Mean Platelet Volume 9.2 fL (9.4-12.4); Monocytes # 0.6 K/mcL (0.0-1.3); Monocytes % 7.2 %; Neutrophils # 4.9 K/mcL (1.6-8.9); Platelet Count 237 K/mcL (140-400); Red Blood Count 3.91 M/mcL (3.82-4.97); Segmented Neutrophils % 59.8 %
[2017-10-28] MEDS ORDERED: Nitroglycerin 1 INCH/GM PACKET TP ONE (09:14)
[2017-10-28] MEDS ORDERED: Verapamil ER (24 HR) 240 MG TABLET.ER PO STA (09:21)
[2017-10-28] MEDS: Nitroglycerin 0.4 MG TAB.SUBL SL PRN ×2 (09:22→09:30)
[2017-10-28 09:27] LABS: Alanine Aminotransferase 6 Units/L (7-52); Albumin 3.5 g/dL (3.5-5.7); Albumin/Globulin Ratio 1.3 (1.1-2.2); Alkaline Phosphatase 72 Units/L (34-104); Aspartate Amino Transferase 10 Units/L (13-39); BUN/Creatinine Ratio 27 (6-26); Bilirubin,Total 0.5 mg/dL (0.3-1.0); Blood Urea Nitrogen 20 mg/dL (8-23); Carbon Dioxide 25 mEq/L (23-29); Chloride 108 mEq/L (98-107); Globulin 2.7 g/dL (2.4-3.5); Glucose 112 mg/dL (70-105); Osmolality,Calculated 291 (280-300); Potassium 3.8 mEq/L (3.5-5.1); Sodium 139 mEq/L (136-145); Total Protein 6.2 g/dL (6.4-8.9); eGFR For African Americans > 60 (> 60); eGFR For Non-African Americans > 60 (> 60)
[2017-10-28] MEDS ORDERED: Isovue-370 500 ML INFUS..BTL IV ONE (09:27)
[2017-10-28 09:29] LABS: Troponin I 0.06 ng/mL (< 0.04)
[2017-10-28] MEDS ORDERED: methylPREDNISolone 125 MG/2 ML VIAL IVP ONE (09:30)
[2017-10-28] MEDS ORDERED: Ondansetron 4 MG/2 ML VIAL IVP ONE (11:14)
[2017-10-28] MEDS ORDERED: Nitroglycerin 25 MG/250 ML INFUS..BTL IVC SCH ×2 (11:15→18:30)
[2017-10-28] MEDS ORDERED: *HR* Heparin 5,000 UNIT/ML VIAL IVP PRN ×2 (11:52)
[2017-10-28] MEDS ORDERED: *HR* Heparin 5,000 UNIT/ML VIAL IVP ONE (11:52)
[2017-10-28] MEDS ORDERED: Heparin 25,000 UNIT/500 ML D5W 25,000 UNIT/500 ML BAG IVC SCH (12:00)
[2017-10-28 12:18] LABS: INR 0.9; Prothrombin Time 10.1 Seconds (9.4-12.1)
[2017-10-28 12:21] LABS: Activated Partial Thrombo Time 36.5 Seconds (26.0-36.0)
--- NOTE | 2017-10-28 13:27 | Cardiology Consult Note ---
<Luther Mark Emmanuel - Last Filed: 10/28/17 13:18> Date of Encounter: 10/28/17 Time of Encounter: 12:58 Assessment and Plan (1) Chest pain Current Visit: Yes Status: Acute Atypical chest pain symptoms for three weeks. C/o associated GI symptoms. Mild troponin elevation of unclear significance, recommend continuing to trend. NSTEMI vs demand ischemia from HTN. EKG shows NSR with no acute ST/T wave changes. Noted to have h/o mild CAD and not on good medical therapy. Continue IV NTG and start heparin gtt for ACS. Start asa, statin, and bb. [facility] R/B/A discussed. Patient states she would prefer conservative management, in the setting of advanced age, unless significant change on non-invasive testing. Qualifiers: Chest pain type: unspecified Qualified Code(s): R07.9 - Chest pain, unspecified (2) Elevated troponin Current Visit: Yes Status: Acute Elevated troponin at 0.06. Atypical chest pain symptoms. See plan above. (3) CAD (coronary artery disease) Current Visit: No Status: Chronic H/o mild non-obstructive CAD on [facility] in 2012. There was a 30% stenosis in the pLAD, 30% stenosis mLAD, 40% stenosis pLCx artery, 30% stenosis mRCA, 40% stenosis mRCA. Asa, statin, and bb recommended. Qualifiers: Coronary Disease-Associated Artery/Lesion type: [place] artery [place] vs. transplanted heart: [place] heart Associated angina: angina presence unspecified Qualified Code(s): I25.10 - Atherosclerotic heart disease of [place] coronary artery without angina pectoris (4) Pericardial effusion Current Visit: Yes Status: Acute Small pericardial effusion on CT. TTE for further evaluation. Discussion w patient/family: The assessment and plan as outlined above was discussed with the patient and/or family members who expressed understanding and agreement. All questions were answered. Thank you for involving us in the care of your patient. Please call with any questions. History of Present Illness Consult date: 10/28/17 Requesting physician: Joan Pritchard Consult reason: elevated troponin Chief complaint: Chest pain History of present illness: Ms. Desouza is a 87 year old female with past medical history significant for COPD on home O2, mild CAD on 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 She presented to the ED with the c/o intermittent midsternal chest pain for the past three weeks. She reports the pain feels like a "tooth ache." Her pain decreased with anti-acids initially. Last night she had recurrent pain that would not go away. Associated symptoms included belching and acid reflux. Her pain increased when she layed flat. Past Med Surg Social Fam HX - Past Medical History Medical history: cancer (CML, prior right lower extremity melanoma, breast cancer, facial skin cancer), COPD, coronary artery disease, GERD, hypertension, other (Right lower extremity lymphedema) Additional medical history: Vertigo Psychiatric history: no psych history - Past Surgical History Surgical History: cancer surgery (Right lower extremity melanoma excision and lymphatic dissection, facial skin cancer excision, breast lumpectomy), hysterectomy - Social History Smoking Status: Former smoker Smokeless Tobacco Status: No Alcohol use: none Drug use: none - Family History Mother Adopted: No Living Status: Hx Family Cardiac Disorders: Yes (History of nine MS's) Hx Family Respiratory Disorders: No Hx Family Cancer: No Hx Family GI Disorders: No Hx Family Endocrine Disorder: Yes (Severe Diabetic) Hx Family Neuromuscular Disorders: No Hx Family Neurologic Disorders: No Hx Family HEENT Disorders: No Hx Family Autoimmune Disorders: No Father Adopted: No Living Status: Hx Family Cardiac Disorders: Yes (Hypertension) Hx Family Respiratory Disorders: No Hx Family Cancer: No Hx Family GI Disorders: No Hx Family Endocrine Disorder: No Hx Family Neuromuscular Disorders: No Hx Family Neurologic Disorders: No Hx Family HEENT Disorders: No Hx Family Autoimmune Disorders: No Medications and Allergies Losartan Potassium [Cozaar] 100 mg PO DAILY 09/14/16 [History] Meclizine [Antivert] 25 mg PO DAILY PRN 09/14/16 [History] Verapamil ER (24 HR) [Calan SR] 240 mg PO DAILY 09/14/16 [History] Metoprolol Tartrate [Lopressor] 12.5 mg PO BID 10/09/16 [History] Montelukast [Singulair] 10 mg PO DAILY 11/30/16 [History] Tiotropium [place] [Spiriva Respimat] 2 puff IH DAILY 11/30/16 [History] Folic Acid 1 mg PO DAILY #90 tablet 12/25/16 [Rx] Diclofenac Sodium [Voltaren] 1 appl TP BID 10/03/17 [History] Cholecalciferol (Vitamin D3) [Vitamin D] 2,000 unit PO DAILY 05/14/17 [History] Multivitamin [Multivitamins] 1 each PO DAILY 05/14/17 [History] Nilotinib HCl [Tasigna] 300 mg PO BID #120 capsule 05/14/17 [Rx] Omeprazole [PriLOSEC] 40 mg PO DAILY #30 cap 07/26/17 [Rx] 3 Allergy/AdvReac Type Severity Reaction Status Date / Time albuterol AdvReac Seizure Verified 10/28/17 10:12 ciprofloxacin [From Cipro] AdvReac Nausea Verified 10/28/17 10:12 codeine AdvReac Vomiting Verified 10/28/17 10:12 iodine AdvReac Fainting Verified 10/28/17 10:12 pentazocine [From Talwin] AdvReac Hypotension Verified 10/28/17 10:12 prednisone AdvReac See Verified 10/28/17 10:12 Comments Tetracycline AdvReac Unconscious Verified 10/28/17 10:12 steroids AdvReac Cramping Uncoded 10/28/17 10:12 of the Muscles All Systems Review: The remainder of the systems were reviewed and are negative Physical Examination Vital Signs, Last 4 Hours Resp BP 10/28/17 13:15 18 147/72 General: Conversant, No Apparent Distress HEENT: Atraumatic, Normocephaly, Mucus Membranes Moist Neck: No JVD, Normal carotid pulses Cardiac: Reg Rate and Rhythm, Normal S1 and S2, No Murmur Lungs: Normal Breath Sounds, No Wheeze, Rales, Rhonchi Neuro: Alert and responsive, No focal deficits noted Abdomen: Soft, Non-Tender Skin: No rashes noted on visualized skin Musculoskeletal: Other (Chest wall tender to palpation. ) Extremities: No Clubbing, No Cyanosis, Normal Pulses, Other (RLE lymphedema noted. ) Results 10/28/17 08:50 10/28/17 08:50 - Imaging and Cardiology Cardiac cath: report reviewed - EKG Interpretation EKG results cardiology: personally reviewed Consult Discharge Plan - Plan Referrals: Shaun Pace DO [Primary Care Provider] - <Soco Snow - Last Filed: 10/28/17 16:49> Date of Encounter: 10/28/17 - Attending Attestation I examined this patient and my medical decision-making was reviewed with the MEAT PICKLER. I agree with the documented findings, disposition and treatment plan as described. Ms. Desouza presents with atypical chest pain and troponin elevation now at 0.59. ECG demonstrates nonspecific ST findings but no acute ischemic concerns. She describes her symptoms as largely occurring at nighttime and sometimes preventing her from sleeping flat. She also incidentally reportedly has a history of stomach ulcers with bleed in December possibly attributed to Oncology medication but is unclear. She was taken off of aspirin at that time. While her symptoms of nighttime discomfort are suggestive of a GI etiology, she is at risk for a coronary event. I discussed the patient's options with her and the family at the bedside. She does appear to be relatively functional and of normal mental capacity at age 87. We discussed possibility of pursuing a diagnostic LHC or opting for conservative management. She would prefer conservative management at this time. Recommend continuing heparin for 48 hours. She is on aspirin. Careful watch on blood count. Recommend checking lipids and tailoring statin appropriately. Will check Echo for evaluation of LV systolic function. Patient is in agreement. Assessment and Plan Discussion w patient/family: The assessment and plan as outlined above was discussed with the patient and/or family members who expressed understanding and agreement. All questions were answered. Thank you for involving us in the care of your patient. Please call with any questions. History of Present Illness History of present illness: Ms. Desouza is a 87 year old female All Systems Review: The remainder of the systems were reviewed and are negative Physical Examination Vital Signs, Last 4 Hours Pulse Resp BP Pulse Ox 10/28/17 13:58 71 165/74 98 10/28/17 13:15 18 147/72 Results 10/28/17 08:50 10/28/17 08:50 Lab Results 10/28/17 14:33 Troponin I 0.59 H*
--- NOTE | 2017-10-28 13:35 | Internal Med History&Physical ---
<Candice Doll Soraya - Last Filed: 10/28/17 13:59> Date of Encounter: 10/28/17 Time of Encounter: 13:14 Internal Medicine - H&P: HPI Chief complaint: Chest pain Admitted From: Home Plans for Post Hospital Care: Home History of present illness: Ms. Desouza is a 87 year old female with hx of CML, COPD, and FOX. The patient indicated that she began having chest pain about 3 weeks ago. She stated that she started to have pain that radiated to her back. She denied sob, and has been taking antacids for the past 3 weeks. She was given 4 baby asa and 2 nitro and continued to have pain in the ED, a nitro drip was started and the pain is currently relieved. Patient had htn episodes and is currently controlled at 147/ 72. Trop was elevated at 0.06. Cardiology was consulted and saw the patient in the ED. Cardiology RAW MILL OPERATOR indicated that patient would be treated medically. The patient also has current diagnosis of leukemia. The patient takes Tasigma and is managed at [facility]. CXR showed no acute process. Ct of chest showed no pulmonary embolus, small pericardial effusion, stable 1.7 cm hand lesion, right adrenal adenoma and colonic diverticulosis. Past Med Surg Social Fam HX - Past Medical History Medical history: cancer (CML, prior right lower extremity melanoma, breast cancer, facial skin cancer), COPD, GERD, hypertension, other (Right lower extremity lymphedema) Additional medical history: Vertigo Psychiatric history: no psych history - Past Surgical History Surgical History: cancer surgery (Right lower extremity melanoma excision and lymphatic dissection, facial skin cancer excision, breast lumpectomy), hysterectomy - Social History Smoking Status: Former smoker Smokeless Tobacco Status: No Alcohol use: none Drug use: none - Family History Mother Adopted: No Living Status: Hx Family Cardiac Disorders: Yes (History of nine MS's) Hx Family Respiratory Disorders: No Hx Family Cancer: No Hx Family GI Disorders: No Hx Family Endocrine Disorder: Yes (Severe Diabetic) Hx Family Neuromuscular Disorders: No Hx Family Neurologic Disorders: No Hx Family HEENT Disorders: No Hx Family Autoimmune Disorders: No Father Adopted: No Living Status: Hx Family Cardiac Disorders: Yes (Hypertension) Hx Family Respiratory Disorders: No Hx Family Cancer: No Hx Family GI Disorders: No Hx Family Endocrine Disorder: No Hx Family Neuromuscular Disorders: No Hx Family Neurologic Disorders: No Hx Family HEENT Disorders: No Hx Family Autoimmune Disorders: No Internal Medicine - H&P: Meds Losartan Potassium [Cozaar] 100 mg PO DAILY 09/14/16 [History] Meclizine [Antivert] 25 mg PO DAILY PRN 09/14/16 [History] Verapamil ER (24 HR) [Calan SR] 240 mg PO DAILY 09/14/16 [History] Metoprolol Tartrate [Lopressor] 12.5 mg PO BID 10/09/16 [History] Montelukast [Singulair] 10 mg PO DAILY 11/30/16 [History] Tiotropium [place] [Spiriva Respimat] 2 puff IH DAILY 11/30/16 [History] Folic Acid 1 mg PO DAILY #90 tablet 12/25/16 [Rx] Diclofenac Sodium [Voltaren] 1 appl TP BID 02/12/17 [History] Cholecalciferol (Vitamin D3) [Vitamin D] 2,000 unit PO DAILY 05/14/17 [History] Multivitamin [Multivitamins] 1 each PO DAILY 05/14/17 [History] Nilotinib HCl [Tasigna] 300 mg PO BID #120 capsule 05/14/17 [Rx] Omeprazole [PriLOSEC] 40 mg PO DAILY #30 cap 07/26/17 [Rx] 3 Allergy/AdvReac Type Severity Reaction Status Date / Time albuterol AdvReac Seizure Verified 10/28/17 10:12 ciprofloxacin [From Cipro] AdvReac Nausea Verified 10/28/17 10:12 codeine AdvReac Vomiting Verified 10/28/17 10:12 iodine AdvReac Fainting Verified 10/28/17 10:12 pentazocine [From Talwin] AdvReac Hypotension Verified 10/28/17 10:12 prednisone AdvReac See Verified 10/28/17 10:12 Comments Tetracycline AdvReac Unconscious Verified 10/28/17 10:12 steroids AdvReac Cramping Uncoded 10/28/17 10:12 of the Muscles All Systems PM: A 10-system review of systems was performed and is negative for pertinent findings except as documented above in the HPI. - Constitutional Constitutional: no chills, no fever(s), no night sweats - EENT Eyes: no change in vision, no discharge, no pain, no photophobia Ears: no ear discharge, no ear pain, no tinnitus Nose, mouth and throat: no dysphagia, no nasal discharge, no neck pain, no sore throat - Cardiovascular Cardiovascular ROS IM: chest pain, no diaphoresis, no dyspnea, no lightheadedness, no palpitations, no syncope - Respiratory Respiratory: no cough, no dyspnea, no wheezing, no excessive phlegm production - Gastrointestinal Gastrointestinal: abdominal pain, no diarrhea, no hematemesis, no hematochezia, no melena, no nausea, no vomiting - Genitourinary Genitourinary: no change in urinary stream, no dysuria, no flank pain, no hematuria - Musculoskeletal Musculoskeletal ROS IM: no numbness, no tingling - Integumentary Integumentary IM: no rash, no unusual bruising - Neurological Neurological ROS: no confusion, no convulsions, no focal weakness, no numbness, no tingling, no tremor(s) - Hematologic/Lymphatic Hematologic/Lymphatic: no easy bruising - Constitutional Vitals: Temp Pulse Resp BP Pulse Ox 98.1 F 73 18 153/76 97 10/28/17 08:38 10/28/17 11:29 10/28/17 11:29 10/28/17 11:29 10/28/17 11:29 General appearance: Present: A&O X 3 - Head Head exam: Present: atraumatic, normocephalic - Eye Eye exam: Present: PERRL, conjuntiva pink, sclera anicteric Pupils: Present: PERRL - Neck Neck exam general surgery: Present: supple, trachea midline. Absent: lymphadenopathy - Respiratory Respiratory exam: Present: CTAB. Absent: accessory muscle use, rales, rhonchi, wheezes - Cardiovascular Cardiovascular exam: Present: RRR, +S1, +S2. Absent: diastolic murmur, gallop, rubs, systolic murmur - GI/Abdominal GI/Abdominal exam: Present: normal bowel sounds, soft, tenderness, no peritoneal signs. Absent: distended - Extremities Exam Extremities exam: Present: warm, radial pulses palpable and symmetrical. Absent : calf tenderness, cyanotic, pedal edema - Neurological Exam Neurological exam: Present: CN II-XII intact, oriented X3, no focal deficits. Absent: pronater drift, facial droop, speech deficit - Skin Skin exam: Present: dry, intact Internal Med - H&P Results - Labs CBC & Chem 7: 10/28/17 08:50 10/28/17 08:50 - Assessment and plan (1) Chest pain Current Visit: Yes Status: Acute Assessment and plan: Patient CP likely due to NSTEMI Trending cardiac Serial trops Cardiac monitoring Cardiology consulting Qualifiers: Chest pain type: unspecified Qualified Code(s): R07.9 - Chest pain, unspecified (2) Elevated troponin Current Visit: Yes Status: Acute Assessment and plan: likely due to NSTEMI Trending cardiac Serial trops Cardiac monitoring Cardiology consulting (3) Pericardial effusion Current Visit: Yes Status: Acute Assessment and plan: Cardiology consulted Cardiac monitoring Echocardiogram scheduled (4) CML (chronic myelocytic leukemia) Current Visit: No Status: Chronic Assessment and plan: Continue home cancer medication Tasigna The patient follows with Luigi (5) CAD (coronary artery disease) Current Visit: No Status: Chronic Assessment and plan: History of heart cath 2-3 years ago related to a + stress test. Cardiology to follow the patient Qualifiers: Coronary Disease-Associated Artery/Lesion type: [place] artery [place] vs. transplanted heart: [place] heart Associated angina: angina presence unspecified Qualified Code(s): I25.10 - Atherosclerotic heart disease of [place] coronary artery without angina pectoris (6) COPD (chronic obstructive pulmonary disease) Current Visit: No Status: Chronic Assessment and plan: COPD is controlled. Oxygen 2L NC at hs r/t COPD Continue home bronchodilators: Spiriva Qualifiers: COPD type: unspecified COPD Qualified Code(s): J44.9 - Chronic obstructive pulmonary disease, unspecified - Time Spent With Patient Total time spent is greater than 50% in coordination of care (as documented) at patient's floor/unit and/or counseling patient: 25 - 35 minutes <Viet Ozuna P - Last Filed: 10/28/17 14:28> Date of Encounter: 10/28/17 Internal Medicine - H&P: HPI History of present illness: Ms. Desouza is a 87 year old female All Systems PM: A 10-system review of systems was performed and is negative for pertinent findings except as documented above in the HPI. - Constitutional Vitals: Temp Pulse Resp BP Pulse Ox 98.1 F 71 18 165/74 98 10/28/17 08:38 10/28/17 13:58 10/28/17 13:15 10/28/17 13:58 10/28/17 13:58 Internal Med - H&P Results - Labs CBC & Chem 7: 10/28/17 08:50 10/28/17 08:50 - Attending Attestation I have seen and evaluated the patient. I have performed my own physical examination. I have discussed case with admitting RAW MILL OPERATOR. I agree with RAW MILL OPERATOR's assessment and plan as documented in her H&P. Briefly, patient admitted for chest pain. Initial troponin 0.06. Cardiology consulted; appreciate input. Patient has agreed to medical management over invasive procedure at this time. Pain is greatly improved on nitro and heparin drips. We will continue both. Cardiology started aspirin, beta erich, and statin. We will trend troponin x 3 and continue to monitor closely on telemetry. - Time Spent With Patient Total time spent is greater than 50% in coordination of care (as documented) at patient's floor/unit and/or counseling patient:
[2017-10-28] MEDS: Aspirin 81 MG TAB.CHEW PO SCH (14:54)
[2017-10-28] MEDS: NILOTINIB HCL 150 MG PO SCH (16:41)
--- NOTE | 2017-10-28 17:42 | Event Note ---
Date of Encounter: 10/28/17 Time of Encounter: 17:36 Rapid response was called regarding the patient feeling sob, having a MAR and having abdominal pain. The patient currently has nitroglycerin and heparin infusing. The o2 sat was 97%. Will get labs and CT of head. Heparin gtt on hold until the patient's CT is resulted. The patient is awake and alert. Bp was elevated during that time but resolved while in the room due to the nitroglycerin.
[2017-10-28 17:49] LABS: Basophils # 0.1 K/mcL (0.0-0.2); Basophils % 0.4 %; Eosinophils # 0.3 K/mcL (0.0-0.6); Hematocrit 35.8 % (35.3-44.9); Hemoglobin 11.7 g/dL (11.5-15.4); Immature Granulocytes % 0.6 % (0-4); Lymphocytes # 3.7 K/mcL (0.6-4.6); Lymphocytes % 26.3 %; Mean Corpuscular HGB Conc 32.7 g/dL (31.6-35.5); Mean Corpuscular Hemoglobin 28.9 pg (28.0-33.3); Mean Corpuscular Volume 88.4 fL (83.0-100.0); Mean Platelet Volume 9.7 fL (9.4-12.4); Monocytes # 0.9 K/mcL (0.0-1.3); Monocytes % 6.6 %; Platelet Count 282 K/mcL (140-400); Red Blood Count 4.05 M/mcL (3.82-4.97); Red Cell Distribution Width 15.1 % (11.5-14.5); Segmented Neutrophils % 64.1 %
[2017-10-28 18:04] LABS: BUN/Creatinine Ratio 23 (6-26); Blood Urea Nitrogen 17 mg/dL (8-23); Calcium 10.1 mg/dL (8.6-10.3); Carbon Dioxide 22 mEq/L (23-29); Chloride 108 mEq/L (98-107); Glucose 122 mg/dL (70-105); Osmolality,Calculated 293 (280-300); Potassium 4.2 mEq/L (3.5-5.1); Sodium 140 mEq/L (136-145); eGFR For African Americans > 60 (> 60); eGFR For Non-African Americans > 60 (> 60)
[2017-10-28 18:06] LABS: Troponin I 0.68 ng/mL (< 0.04)
--- NOTE | 2017-10-28 18:19 | Event Note ---
Date of Encounter: 10/28/17 Time of Encounter: 17:07 Rapid response called on patient. Patient tachypneic and SOB. Complaining of headache and neck pain. O2 saturations 90s on RA, but placed on 2L NC for comfort. Heparin and nitro drips discontinued by nurse. She was on 15 of nitro. BP dropped from 190s to 130s upon arrival to floor. She has severe headache, which is likely from nitro and abrupt drop in BP. Will obtain BMP, CBC, troponin, and CT head without contrast stat. If H/H stable and no intracranial bleed, will restart heparin drip. Will restart nitro drip at 2.5 if BP starts trending up. Troponin is trending up; will notify cardiology if troponin continues to trend up to see if they would recommend any changes in management. After 10 minutes, tachypnea and SOB resolved. Repeat EKG unchanged. Now only complaining of headache and neck pain. Will follow up on results. If any concerning findings or if she deteriorates again for any reason , will transfer to step down unit.
[2017-10-28] MEDS: Isosorbide MONOnitrate (24 HR) 30 MG TAB.ER.24H PO SCH (20:10)
--- NOTE | 2017-10-28 22:18 | Event Note ---
Date of Encounter: 10/28/17 Time of Encounter: 22:14 Discussed the patient code status with the dtr, who is the POA. The patient will be a "Full code". She indicated that her mother wanted to have cpr and that she wanted lifesupport as long it wasn't prolonged. I discussed the same exact conversation with the patient earlier in the ED.
[2017-10-29 01:30] LABS: Basophils % 0.4 %; Eosinophils # 0.2 K/mcL (0.0-0.6); Eosinophils % 2.2 %; Hematocrit 30.9 % (35.3-44.9); Hemoglobin 9.9 g/dL (11.5-15.4); Immature Granulocytes % 0.7 % (0-4); Lymphocytes % 21.7 %; Mean Corpuscular Hemoglobin 28.8 pg (28.0-33.3); Mean Corpuscular Volume 89.8 fL (83.0-100.0); Mean Platelet Volume 9.2 fL (9.4-12.4); Monocytes # 0.7 K/mcL (0.0-1.3); Neutrophils # 6.1 K/mcL (1.6-8.9); Platelet Count 216 K/mcL (140-400); Red Blood Count 3.44 M/mcL (3.82-4.97); Red Cell Distribution Width 15.1 % (11.5-14.5)
[2017-10-29 01:37] LABS: INR 1.1; Prothrombin Time 11.3 Seconds (9.4-12.1)
[2017-10-29 01:48] LABS: Chol/HDL Ratio 5.1 (0-4.9)
[2017-10-29 01:49] LABS: Alanine Aminotransferase 8 Units/L (7-52); Albumin 3.1 g/dL (3.5-5.7); Albumin/Globulin Ratio 1.3 (1.1-2.2); Alkaline Phosphatase 66 Units/L (34-104); Aspartate Amino Transferase 18 Units/L (13-39); BUN/Creatinine Ratio 23 (6-26); Bilirubin,Total 0.6 mg/dL (0.3-1.0); Blood Urea Nitrogen 17 mg/dL (8-23); Calcium 9.1 mg/dL (8.6-10.3); Carbon Dioxide 25 mEq/L (23-29); Chloride 110 mEq/L (98-107); Globulin 2.4 g/dL (2.4-3.5); Glucose 110 mg/dL (70-105); Magnesium 1.7 mg/dL (1.6-2.6); Osmolality,Calculated 292 (280-300); Potassium 3.8 mEq/L (3.5-5.1); Sodium 140 mEq/L (136-145); Total Protein 5.5 g/dL (6.4-8.9); eGFR For African Americans > 60 (> 60); eGFR For Non-African Americans > 60 (> 60)
--- NOTE | 2017-10-29 03:22 | Event Note ---
Date of Encounter: 10/29/17 Time of Encounter: 03:09 I was asked by RN and Dr. Santacruz for an opinion on whether to resume heparin gtt on patient. I reviewed the chart, initial and repeat CT reports of Head, and report of CTA chest as well as viewing the images personally. There is concern of possible ischemia on repeat CT head, but there is no hemorrhage. The troponin is elevated but she is chest pain free and resting comfortably. Her CT chest reveals a pericardial effusion. Given that she may have acute ischemia on CT head and a pericardial effusion on CTA chest, I am reluctant to resume heparin gtt at this time for fear of hemorrhagic conversion for possible stroke as well as hemorrhagic pericardial effusion. I recommended withholding heparin drip for now, repeating a troponin in 6 hours, and consulting both cardiology and neurology for guidance this morning.
[2017-10-29] MEDS: NILOTINIB HCL 150 MG PO SCH (03:55)
--- NOTE | 2017-10-29 06:45 | Electrocardiograph Report ---
[address] [place], [place] [address] Test Date: 2017-10-29 Pat Name: Lida [place] Department: 111 Room: [facility] Gender: Area Coordinator: [id number] : 1930 Requested By: Reji Alexander Order Number: [id number] Reading MD: Connor Lakhani Measurements Intervals [place] Rate: 67 P: 55 [place]: 233 QRS: -14 QRSD: 101 T: 105 QT: 435 QTc: 451 Interpretive Statements SINUS RHYTHM WITH FIRST DEGREE AV BLOCK ANTEROLATERAL ISCHEMIA Electronically Signed On 10-29-2017 6:43:58 EDT by Connor Lakhani
[2017-10-29 08:13] LABS: Hemoglobin 9.8 g/dL (11.5-15.4)
--- NOTE | 2017-10-29 08:16 | Internal Med Progress Note ---
<Amira Santiago - Last Filed: 10/29/17 15:42> Date of Encounter: 10/29/17 Time of Encounter: 08:16 - Assessment and plan (1) NSTEMI (non-ST elevated myocardial infarction) Current Visit: Yes Status: Acute Assessment and plan: Atypical CP x3 weeks--NSTEMI vs demand ischemia from hypertension Troponin elevated to 0.06, 0.59, 0.68, 1.37, 1.26. Appears to have peaked, will continue to trend. EKG at 0741 10/29 shows QT prolongation to 529 from 435 at 0227 10/29. Sinus rhythm with anterolateral ischemic changes. Heparin and nitro gtts were stopped overnight with concern for ischemic vs hemorrhagic stroke and hypotension with nitro. CT head shows multifocal small vessel ischemia, possibly secondary to BP changes. No hemorrhage noted. ECHO: LVEF 55%. Normal LV chamber size, wall thickness and overall function. Mild segmental left ventricular systolic dysfunction. Mild left ventricular diastolic dysfunction. Normal right ventricular structure and function. Moderate pulmonary hypertension. Estimated RVSP is 49 mmHg. No significant valvular dysfunction. Cardiology has discussed treatment options with pt--pt plans for medical management. In setting of drop in hgb recommend ASA only. Plan: Continue medical management with ASA, BB, statin Continue imdur 30mg daily Discontinue heparin and nitro gtts [facility] consulted, appreciate their recommendations (2) Elevated troponin Current Visit: Yes Status: Acute Assessment and plan: see above management (3) Small vessel disease, cerebrovascular Current Visit: Yes Status: Acute Assessment and plan: Pt had rapid response called on her yesterday evening with tachypnea and SOB, MAR , nek pain. Oxygen sats were in 90s on RA. Pt was on 15 of nitro, gtt stopped. Heparin gtt stopped. BP had dropped from 190s - 130s upon arrival to the floor. Stat head CT showed no hemorrhage, but here were multifocal small vessel ischemic changes. Pt asymptomatic this morning, with no neuro deficits Pt notes severe claustrophobia to MRI, can't have one done. Plan: Neurology consulted and case discussed, appreciate their recommendations. Will continue neuro checks Hold nitro based on BP Consider restarting heparin based on cardiology recs as no hemorrhage seen on CT head. (4) Pericardial effusion Current Visit: Yes Status: Acute Assessment and plan: Small pericardial effusion noted on CTA. Plan: ECHO pending Cardio consulted, appreciate their recommendations. (5) CAD (coronary artery disease) Current Visit: No Status: Chronic Assessment and plan: History of heart cath 2-3 years ago related to a + stress test. Cardiology following Qualifiers: Coronary Disease-Associated Artery/Lesion type: [place] artery [place] vs. transplanted heart: [place] heart Associated angina: angina presence unspecified Qualified Code(s): I25.10 - Atherosclerotic heart disease of [place] coronary artery without angina pectoris (6) COPD (chronic obstructive pulmonary disease) Current Visit: No Status: Chronic Assessment and plan: COPD is controlled. Plan: Oxygen 2L NC at hs r/t COPD Continue home bronchodilators: Spiriva Qualifiers: COPD type: unspecified COPD Qualified Code(s): J44.9 - Chronic obstructive pulmonary disease, unspecified (7) CML (chronic myelocytic leukemia) Current Visit: No Status: Chronic Assessment and plan: Pt follows with Dr. Lozano at [facility] Taking Tasigna, pt believes she had a reaction to it yesterday although she has been taking it without issue since January. Plan: Oncology consulted regarding Tasigna dosing (8) Anemia Current Visit: Yes Status: Acute Assessment and plan: Hgb dropped from 11.7 to 9.9 today, repeat is 9.8 CT head negative for hemorrhage Pt asymptomatic Plan: Continue to monitor H/H Discontinue heparin gtt Qualifiers: Anemia type: unspecified type Qualified Code(s): D64.9 - Anemia, unspecified - Time Spent With Patient Total time spent is greater than 50% in coordination of care (as documented) at patient's floor/unit and/or counseling patient: - Subjective Interval history: Last evening patient developed MAR after taking Tasigna. Nitro and Heparin gtts were stopped and pt had stat head CT that showed changes concerning for mild multi-focal small-vessel ischemic changes bilaterally. She does have chronic right leg weakness since the 1979' after excision of melanoma and lymphatic dissection and chronic right LE edema. She notes remote history of TIA and had radiation for right breast lump. Pt denies any symptoms this morning of MAR, visual changes, cp, sob, new weakness, numbness/tingling of extremities, speech changes. She states that she choose medical management with her CP and does not want a heart cath. She also notes that she has severe claustrophobia and is not able to do an MRI unless it is an open MRI. - Constitutional Vitals: Temp Pulse Resp BP Pulse Ox 98.1 F 62 17 129/42 99 10/29/17 07:07 10/29/17 07:07 10/29/17 07:07 10/29/17 07:07 10/29/17 07:07 General appearance: Present: cooperative, A&O X 3, pleasant, no acute distress, answers questions appropriately - Head Head exam: Present: atraumatic, normocephalic - Eye Eye exam: Present: EOMI, normal appearance, PERRL, conjuntiva pink, sclera anicteric. Absent: nystagmus Pupils: Present: PERRL - ENT ENT exam: Present: mucous membranes moist, normal oropharynx - Neck Neck exam general surgery: Present: full ROM, supple, trachea midline - Respiratory Respiratory exam: Present: CTAB. Absent: accessory muscle use, rales, rhonchi, wheezes - Cardiovascular Cardiovascular exam: Present: RRR, +S1, +S2. Absent: diastolic murmur, gallop, rubs, systolic murmur - GI/Abdominal GI/Abdominal exam: Present: soft, no peritoneal signs. Absent: distended, tenderness - Extremities Exam Extremities exam: Present: pedal edema (right) - Neurological Exam Neurological exam: Present: alert, CN II-XII intact, oriented X3, no focal deficits. Absent: motor sensory deficit, strengths equal and symetr throughout (right leg weakness (chronic per pt) otherwise normal and equal), pronater drift , facial droop, speech deficit - Psychiatric Psychiatric exam: Present: normal affect, normal mood - Skin Skin exam: Present: dry, intact Internal Medicine: Result - Labs CBC & Chem 7: 10/29/17 07:43 10/29/17 01:18 Labs: Short CBC 10/28/17 10/29/17 10/29/17 Range/Units 17:28 01:18 07:43 WBC 14.0 H D 9.2 (4.3-11.1) K/mcL Hgb 11.7 9.9 L D 9.8 L (11.5-15.4) g/dL Hct 35.8 30.9 L 31.0 L (35.3-44.9) % Plt Count 282 216 (140-400) K/mcL Neutrophils # 9.0 H 6.1 (1.6-8.9) K/mcL BMP 10/28/17 10/29/17 17:28 01:18 Sodium 140 140 Potassium 4.2 3.8 Chloride 108 H 110 H Carbon Dioxide 22 L 25 BUN 17 17 Creatinine 0.74 0.75 Glucose 122 H 110 H Calcium 10.1 9.1 Cardiac Enzymes 10/28/17 10/28/17 10/29/17 Range/Units 14:33 17:28 01:18 Troponin I 0.59 H* 0.68 H* 1.37 H* (< 0.04) ng/mL Liver Function 10/29/17 Range/Units 01:18 Total Bilirubin 0.6 (0.3-1.0) mg/dL AST 18 (13-39) Units/L ALT 8 (7-52) Units/L Alkaline Phosphatase 66 (34-104) Units/L Albumin 3.1 L (3.5-5.7) g/dL - ABG Interpretation ABG results: PT/INR, D-dimer PT 11.3 Seconds (9.4-12.1) 10/29/17 01:18 - Impressions Impressions Head CT 10/28/17 17:26 IMPRESSION: Unusual asymmetric posterior left cortical hemispheric vague diffuse hyperattenuation with some involvement of the cerebellum. Alternatively, the remainder of the brain could be the abnormality representing some ischemia. While findings could well be due to artifact, given patient's clinical condition, I would recommend repeating the exam either on a different machine or obtaining MRI with IV contrast. Findings were discussed with Viet Ozuna at 7:01 pm on 10/28/2017. D/ / 10/28/2017 18:35:35 Sathish Alba MD / [facility] Interpreting Provider: Sathish Alba MD Head CT 10/28/17 19:04 IMPRESSION: Previously noted heterogeneous density in the brain parenchyma on the recent CT exam is not appreciated on the current exam and was likely artifactual. There is mild multifocal small-vessel ischemic change bilaterally. 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 This may be artifactual. Recent ischemic change would be difficult to exclude. No hemorrhage. D/ / Miguel Angel Mederos / Miguel Angel Mederos Interpreting Provider: Miguel Angel Mederos Consult Discharge Plan - Plan Referrals: Shaun Pace DO [Primary Care Provider] - <Domo Greer - Last Filed: 10/29/17 19:04> Date of Encounter: 10/29/17 - Assessment and plan (1) CML (chronic myelocytic leukemia) Current Visit: No Status: Chronic (2) COPD (chronic obstructive pulmonary disease) Current Visit: No Status: Chronic Qualifiers: COPD type: unspecified COPD Qualified Code(s): J44.9 - Chronic obstructive pulmonary disease, unspecified (3) Pericardial effusion Current Visit: Yes Status: Acute (4) NSTEMI (non-ST elevated myocardial infarction) Current Visit: Yes Status: Acute (5) Elevated troponin Current Visit: Yes Status: Acute (6) CAD (coronary artery disease) Current Visit: No Status: Chronic Qualifiers: Coronary Disease-Associated Artery/Lesion type: [place] artery [place] vs. transplanted heart: [place] heart Associated angina: angina presence unspecified Qualified Code(s): I25.10 - Atherosclerotic heart disease of [place] coronary artery without angina pectoris (7) Small vessel disease, cerebrovascular Current Visit: Yes Status: Acute (8) Anemia Current Visit: Yes Status: Acute Qualifiers: Anemia type: unspecified type Qualified Code(s): D64.9 - Anemia, unspecified - Time Spent With Patient Total time spent is greater than 50% in coordination of care (as documented) at patient's floor/unit and/or counseling patient: - Constitutional Vitals: Temp Pulse Resp BP Pulse Ox 98.2 F 63 17 145/58 99 10/29/17 16:21 10/29/17 16:21 10/29/17 16:21 10/29/17 16:21 10/29/17 16:21 Internal Medicine: Result - Labs CBC & Chem 7: 10/29/17 07:43 10/29/17 01:18 Labs: Short CBC 10/29/17 10/29/17 Range/Units 01:18 07:43 WBC 9.2 (4.3-11.1) K/mcL Hgb 9.9 L D 9.8 L (11.5-15.4) g/dL Hct 30.9 L 31.0 L (35.3-44.9) % Plt Count 216 (140-400) K/mcL Neutrophils # 6.1 (1.6-8.9) K/mcL BMP 10/29/17 01:18 Sodium 140 Potassium 3.8 Chloride 110 H Carbon Dioxide 25 BUN 17 Creatinine 0.75 Glucose 110 H Calcium 9.1 Cardiac Enzymes 10/29/17 10/29/17 Range/Units 01:18 07:43 Troponin I 1.37 H* 1.26 H* (< 0.04) ng/mL Liver Function 10/29/17 Range/Units 01:18 Total Bilirubin 0.6 (0.3-1.0) mg/dL AST 18 (13-39) Units/L ALT 8 (7-52) Units/L Alkaline Phosphatase 66 (34-104) Units/L Albumin 3.1 L (3.5-5.7) g/dL - ABG Interpretation ABG results: PT/INR, D-dimer PT 11.3 Seconds (9.4-12.1) 10/29/17 01:18 - Impressions Impressions Echocardiogram 10/28/17 13:44 Impressions: LVEF 55%. Normal LV chamber size, wall thickness and overall function. Mild segmental left ventricular systolic dysfunction. Mild left ventricular diastolic dysfunction. Normal right ventricular structure and function. Moderate pulmonary hypertension. Estimated RVSP is 49 mmHg. No significant valvular dysfunction. Left Ventricular Wall Motion: Rest Echo Findings The apical septal wall was hypokinetic. All other wall segments showed normal motion. Findings: Study Quality * Technically adequate exam. ECG Findings * Normal sinus rhythm. Left Ventricle * LVEF 55%. * Normal LV chamber size, wall thickness and overall function. * Mild segmental left ventricular systolic dysfunction. * Mild left ventricular diastolic dysfunction. Right Ventricle * Normal right ventricular structure and function. Left Atrium * Moderately dilated left atrium. Right Atrium * Mildly dilated right atrium. Interatrial Septum * Interatrial septum not well evaluated. Aortic Valve * Aortic valve not well visualized. * No aortic regurgitation. * No aortic stenosis. Mitral Valve * Mild mitral annular calcification * Trace mitral regurgitation. * No mitral stenosis. Tricuspid Valve * Normal tricuspid valve structure and function. * Trace tricuspid regurgitation. * Moderate pulmonary hypertension. * Estimated RVSP is 49 mmHg. * Estimated RA pressure is 5 mmHg. Pulmonic Valve * Pulmonic valve not well visualized. Aorta * Normally sized aortic root. Pericardium * The pericardium appears normal. IVC * Normal IVC dimensions and inspiratory collapse. Pulmonary Artery * Normal visualized portions of the main pulmonary artery. Head CT 10/28/17 17:26 IMPRESSION: Unusual asymmetric posterior left cortical hemispheric vague diffuse hyperattenuation with some involvement of the cerebellum. Alternatively, the remainder of the brain could be the abnormality representing some ischemia. While findings could well be due to artifact, given patient's clinical condition, I would recommend repeating the exam either on a different machine or obtaining MRI with IV contrast. Findings were discussed with Viet Ozuna at 7:01 pm on 10/28/2017. D/ / 10/28/2017 18:35:35 Sathish Alba MD / [facility] Interpreting Provider: Stahish Alba MD Head CT 10/28/17 19:04 IMPRESSION: Previously noted heterogeneous density in the brain parenchyma on the recent CT exam is not appreciated on the current exam and was likely artifactual. There is mild multifocal small-vessel ischemic change bilaterally. 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 This may be artifactual. Recent ischemic change would be difficult to exclude. No hemorrhage. D/ / Miguel Angel Mederos / Miguel Angel Mederos Interpreting Provider: Miguel Angel Mederos - Attending Attestation I examined this patient and my medical decision-making was reviewed with the Resident Physician. I agree with the documented findings, disposition and treatment plan as described except to the extent set forth below.
[2017-10-29] MEDS ORDERED: Folic Acid 1 MG TABLET PO SCH ×2 (09:00→21:00)
--- NOTE | 2017-10-29 09:08 | Neurology - Consult Note ---
<Corinne Melendez I - Last Filed: 10/29/17 13:21> Date of Encounter: 10/29/17 Assessment and Plan (1) Headache Current Visit: Yes Status: Acute Pt was seen and examined, my medical decision was reviewed with the Resident Physician, I agree with the documented findings, disposition and treatment plas as described except to the extent set forth below Patient headaches has resolved after discontinuation off nitroglycerin drip headaches were likely related to it No evidence of any acute finding on clinical neurological examination to be suggestive of stroke As far as abnormal CT scan findings are concern it could been artifactual or perhaps could be chronic ischemic changes though clinically she does not seem to have any symptoms perhaps he could do an MRI of the brain to confirm the abnormal findings That could be done later as an outpatient or could be done with the sedation On the other hand if not possible he could repeat a CT scan with contrast Corinne Melendez MD Qualifiers: Headache type: unspecified Headache chronicity pattern: acute headache Intractability: not intractable Qualified Code(s): R51 - Headache History of Present Illness HPI: Ms. Desouza is a 87 year old female Medications and Allergies Losartan Potassium [Cozaar] 100 mg PO DAILY 09/14/16 [History] Meclizine [Antivert] 25 mg PO DAILY PRN 09/14/16 [History] Verapamil ER (24 HR) [Calan SR] 240 mg PO DAILY 09/14/16 [History] Metoprolol Tartrate [Lopressor] 12.5 mg PO BID 10/09/16 [History] Montelukast [Singulair] 10 mg PO DAILY 11/30/16 [History] Tiotropium Gaylord [Spiriva Respimat] 2 puff IH DAILY 11/30/16 [History] Folic Acid 1 mg PO DAILY #90 tablet 12/25/16 [Rx] Diclofenac Sodium [Voltaren] 1 appl TP BID 02/12/17 [History] Cholecalciferol (Vitamin D3) [Vitamin D] 2,000 unit PO DAILY 05/14/17 [History] Multivitamin [Multivitamins] 1 each PO DAILY 05/14/17 [History] Nilotinib HCl [Tasigna] 300 mg PO BID #120 capsule 05/14/17 [Rx] Omeprazole [PriLOSEC] 40 mg PO DAILY #30 cap 07/26/17 [Rx] 3 Allergy/AdvReac Type Severity Reaction Status Date / Time albuterol AdvReac Seizure Verified 10/28/17 10:12 ciprofloxacin [From Cipro] AdvReac Nausea Verified 10/28/17 10:12 codeine AdvReac Vomiting Verified 10/28/17 10:12 iodine AdvReac Fainting Verified 10/28/17 10:12 pentazocine [From Talwin] AdvReac Hypotension Verified 10/28/17 10:12 prednisone AdvReac See Verified 10/28/17 10:12 Comments Tetracycline AdvReac Unconscious Verified 10/28/17 10:12 steroids AdvReac Cramping Uncoded 10/28/17 10:12 of the Muscles All Systems: The remainder of the systems were reviewed and are negative Physical Examination - Vital Signs Vital Signs: Initial Vital Signs Temp Pulse Resp BP Pulse Ox 98.1 F 79 18 196/76 97 10/28/17 08:38 10/28/17 08:38 10/28/17 08:38 10/28/17 08:38 10/28/17 08:38 Results - Laboratory Findings CBC and BMP: 10/29/17 07:43 10/29/17 01:18 Abnormal lab findings: Abnormal lab results RBC 3.44 M/mcL (3.82-4.97) L 10/29/17 01:18 Hgb 9.8 g/dL (11.5-15.4) L 10/29/17 07:43 Hct 31.0 % (35.3-44.9) L 10/29/17 07:43 RDW 15.1 % (11.5-14.5) H 10/29/17 01:18 MPV 9.2 fL (9.4-12.4) L 10/29/17 01:18 APTT 36.5 Seconds (26.0-36.0) H 10/28/17 08:51 Chloride 110 mEq/L (98-107) H 10/29/17 01:18 Glucose 110 mg/dL (70-105) H 10/29/17 01:18 POC Glucose 114 mg/dL (70-99) H 10/28/17 17:12 Troponin I 1.26 ng/mL (< 0.04) H* 10/29/17 07:43 Serum Total Protein 5.5 g/dL (6.4-8.9) L 10/29/17 01:18 Albumin 3.1 g/dL (3.5-5.7) L 10/29/17 01:18 LDL Cholesterol, Calc 130 mg/dL (0-99) H 10/29/17 01:18 HDL Cholesterol 38 mg/dL (40-59) L 10/29/17 01:18 Cholesterol/HDL Ratio 5.1 (0-4.9) H 10/29/17 01:18 Consult Discharge Plan - Plan Referrals: Shaun Pace DO [Primary Care Provider] - <Nura Roberts - Last Filed: 10/29/17 13:26> Date of Encounter: 10/29/17 Time of Encounter: 10:15 Assessment and Plan (1) Headache Current Visit: Yes Status: Acute Patient developed headache and neck pain while on NG drip. BP dropped form 190s- 130s systolic. Patient had no AMS, Numbness, tingling, weakness, slurred speech, or vision changes during this event. NG drip was stopped. Patient's headache resolved on it's own after that. This is most likely a NG side effect headache This is a known common complication. The CT showed likely artifact. This can be followed up as an outpatient with an MRI or repeart CT scan. Qualifiers: Headache type: unspecified Headache chronicity pattern: acute headache Intractability: not intractable Qualified Code(s): R51 - Headache History of Present Illness HPI: Ms. Desouza is a 87 year old female c PMHx of cancer (CML, prior right lower extremity melanoma, breast cancer, facial skin cancer), COPD, GERD, hypertension , other (Right lower extremity lymphedema), FOX who reported to [facility] for complaints of chest pain. Patient was being treated with heaparin and NG gtts. She acutely developed headache, neck pain, tacypnea, and SOB. A rapid response was called. Heparin and NG gtt stopped. BP had dropped from 190s to the 130s. Initial CT head showed: "Unusual asymmetric posterior left cortical hemispheric vague diffuse hyperattenuation with some involvement of the cerebellum. Alternatively, the remainder of the brain could be the abnormality representing some ischemia. While findings could well be due to artifact, given patient's clinical condition, I would recommend repeating the exam either on a different machine or obtaining MRI with IV contrast." Repeat CT head showed: " Previously noted heterogeneous density in the brain parenchyma on the recent CT exam is not appreciated on the current exam and was likely artifactual. There is mild multifocal small-vessel ischemic change bilaterally. 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 Nonspecific low-density in the posterolateral aspect of the right temporal lobe. This may be artifactual. Recent ischemic change would be difficult to exclude. No hemorrhage." Patient's headache and neck pain have resolved. Patient denies new numbness/ tingling, weakness, Past Med Surg Social Fam HX - Past Medical History Medical history: cancer (CML, prior right lower extremity melanoma, breast cancer, facial skin cancer), COPD, GERD, hypertension, other (Right lower extremity lymphedema) Additional medical history: Vertigo Psychiatric history: no psych history - Past Surgical History Surgical History: cancer surgery (Right lower extremity melanoma excision and lymphatic dissection, facial skin cancer excision, breast lumpectomy), hysterectomy - Social History Smoking Status: Former smoker Smokeless Tobacco Status: No Alcohol use: none Drug use: none - Family History Mother Adopted: No Living Status: Hx Family Cardiac Disorders: Yes (History of nine [place]) Hx Family Respiratory Disorders: No Hx Family Cancer: No Hx Family GI Disorders: No Hx Family Endocrine Disorder: Yes (Severe Diabetic) Hx Family Neuromuscular Disorders: No Hx Family Neurologic Disorders: No Hx Family HEENT Disorders: No Hx Family Autoimmune Disorders: No Father Adopted: No Living Status: Hx Family Cardiac Disorders: Yes (Hypertension) Hx Family Respiratory Disorders: No Hx Family Cancer: No Hx Family GI Disorders: No Hx Family Endocrine Disorder: No Hx Family Neuromuscular Disorders: No Hx Family Neurologic Disorders: No Hx Family HEENT Disorders: No Hx Family Autoimmune Disorders: No All Systems: The remainder of the systems were reviewed and are negative Physical Examination - Vital Signs Vital Signs: Initial Vital Signs Temp Pulse Resp BP Pulse Ox 98.1 F 79 18 196/76 97 10/28/17 08:38 10/28/17 08:38 10/28/17 08:38 10/28/17 08:38 10/28/17 08:38 - Constitutional General appearance: comfortable - Neurologic Sensorimotor examination: intact Motor examination - right side: 07/15: hip flexors (Patient has had this weakness for years), quadriceps (Patietn has had this weakness for years), 09/14: deltoids , biceps, triceps, wrist flexion, wrist extension, oil well cable tool driller, tibialis Anterior, toe extension (EHL), plantarflexion Motor examination - left side: 09/14: deltoids, biceps, triceps, wrist flexion, wrist extension, hip flexors, oil well cable tool driller, quadriceps, tibialis Anterior, toe extension (EHL), plantarflexion Detailed sensory examination: intact, light touch Reflexes: Biceps: 2+ Mental Status Examination: awake, alert, oriented to person, oriented to place, oriented to time, follows commands appropriately, answers questions appropriately Cranial nerve examination: PERRL, EOMI, sensory to face intact, no facial asymmetry is present, no dysarthria, hearing is intact symmetrically, soft palate elevates bilaterally upon phonation, flexes SCM and trapezius muscles symmetrically with full power, tongue protrudes midline, no atrophy or facial fasiculations present Cerebellar examination: no dysmetria, performs finger to nose and heel to gray symmetrically without ataxia Results - Laboratory Findings CBC and BMP: 10/29/17 07:43 10/29/17 01:18 Abnormal lab findings: Abnormal lab results RBC 3.44 M/mcL (3.82-4.97) L 10/29/17 01:18 Hgb 9.8 g/dL (11.5-15.4) L 10/29/17 07:43 Hct 31.0 % (35.3-44.9) L 10/29/17 07:43 RDW 15.1 % (11.5-14.5) H 10/29/17 01:18 MPV 9.2 fL (9.4-12.4) L 10/29/17 01:18 APTT 36.5 Seconds (26.0-36.0) H 10/28/17 08:51 Chloride 110 mEq/L (98-107) H 10/29/17 01:18 Glucose 110 mg/dL (70-105) H 10/29/17 01:18 POC Glucose 114 mg/dL (70-99) H 10/28/17 17:12 Troponin I 1.26 ng/mL (< 0.04) H* 10/29/17 07:43 Serum Total Protein 5.5 g/dL (6.4-8.9) L 10/29/17 01:18 Albumin 3.1 g/dL (3.5-5.7) L 10/29/17 01:18 LDL Cholesterol, Calc 130 mg/dL (0-99) H 10/29/17:18 HDL Cholesterol 38 mg/dL (40-59) L 10/29/17 01:18 Cholesterol/HDL Ratio 5.1 (0-4.9) H 10/29/17 01:18
[2017-10-29] MEDS: Cholecalciferol (D-3) 1,000 UNIT TABLET PO SCH (09:36)
[2017-10-29] MEDS: Aspirin 81 MG TAB.CHEW PO SCH (09:37)
[2017-10-29] MEDS: Verapamil ER (24 HR) 240 MG TABLET.ER PO SCH (09:37)
[2017-10-29] MEDS: Isosorbide MONOnitrate (24 HR) 30 MG TAB.ER.24H PO SCH (09:38)
[2017-10-29] MEDS: Multivit/Ca/Min/Fe/FA 1 TAB TABLET PO SCH (09:38)
--- NOTE | 2017-10-29 10:23 | Cardiology Progress Note ---
Date of Encounter: 10/29/17 Time of Encounter: 08:45 Assessment and Plan (1) NSTEMI (non-ST elevated myocardial infarction) Current Visit: Yes Status: Acute Presented with c/o atypical chest pain symptoms for three weeks. C/o associated GI symptoms. Troponin elevation up to 1.37. EKG shows NSR with no acute ST/T wave changes when compared to previous EKG, there was non-specific ST changes. CTA negative for PE or aortic dissection. Small pericardial effusion noted. Noted to have h/o mild CAD on [facility] in 2012 and not on good medical therapy. Taken off aspirin due to stomach ulcer in past. Continue asa, statin, and bb. [facility] R/B/A discussed. Patient states she would prefer conservative management, in the setting of advanced age, unless significant change on non-invasive testing. TTE is pending for further evaluation. Agree with stopping heparin gtt in the setting of changes concerning for possible CVA on CT until evaluated by neurology. Hgb also noted t drop from 11.2 to 9.9. Further recommendations pending TTE. She is currently not a candidate for cardiac rehab in the setting of medical management. CT of the head showed possible ischemia. Neurology consulted for evaluation. MRI was ordered. Agree with holding heparin due to concern for possible hemorrhagic conversion. No hemorrhage seen on CT scan. (2) CAD (coronary artery disease) Current Visit: No Status: Chronic H/o mild non-obstructive CAD on [facility] in 2012. There was a 30% stenosis in the pLAD, 30% stenosis mLAD, 40% stenosis pLCx artery, 30% stenosis mRCA, 40% stenosis mRCA. Asa, statin, and bb recommended. Qualifiers: Coronary Disease-Associated Artery/Lesion type: [place] artery [place] vs. transplanted heart: creek heart Associated angina: angina presence unspecified Qualified Code(s): I25.10 - Atherosclerotic heart disease of creek coronary artery without angina pectoris (3) Pericardial effusion Current Visit: Yes Status: Acute Small pericardial effusion on CT. TTE for further evaluation. Discussion w patient/family: The assessment and plan as outlined above was discussed with the patient and/or family members who expressed understanding and agreement. All questions were answered. Thank you for involving us in the care of your patient. Please call with any questions. Subjective Principal diagnosis: NSTEMI Interval history: Ms. Lyly was reported to have a severe headache and stomach ache yesterday. Also had sudden onset SOB and tachypnea. She did have notable b/p drop during the day from 190's to 130's. CT of the head revealed possible ischemia. Neurology was consulted to evaluate. On my exam this morning she denies recurrent chest pain and is off heparin and IV NTG gtt. Reports she is feeling better. Objective Vital Signs, Last 4 Hours Temp Pulse Resp BP Pulse Ox 10/29/17 07:07 98.1 F 62 17 129/42 99 General: Conversant, No Apparent Distress, Other (Frail elederly female) HEENT: Atraumatic, Normocephaly, Mucus Membranes Moist Neck: No JVD, Normal carotid pulses Cardiac: Reg Rate and Rhythm, Normal S1 and S2, No Murmur Lungs: Normal Breath Sounds, No Wheeze, Rales, Rhonchi Neuro: Alert and responsive, No focal deficits noted Abdomen: Soft, Non-Tender Skin: No rashes noted on visualized skin Musculoskeletal: No Chest Wall Tenderness Extremities: No Clubbing, No Cyanosis, No Edema, Normal Pulses Results 10/29/17 07:43 10/29/17 01:18 Lab Results 10/28/17 10/28/17 10/28/17 14:33 17:28 17:28 WBC 14.0 H D Hgb 11.7 Hct 35.8 Plt Count 282 INR Sodium 140 Potassium 4.2 Chloride 108 H Carbon Dioxide 22 L BUN 17 Creatinine 0.74 Glucose 122 H Calcium 10.1 Magnesium Total Bilirubin AST ALT Alkaline Phosphatase Troponin I 0.59 H* 0.68 H* 10/29/17 10/29/17 10/29/17 01:18 01:18 01:18 WBC 9.2 Hgb 9.9 L D Hct 30.9 L Plt Count 216 INR 1.1 Sodium Potassium Chloride Carbon Dioxide BUN Creatinin Chest X-Ray 10/28/17 08:40 IMPRESSION: No acute process. D/ / 10/28/2017 09:47:14 Callum Hughes MD / jameson Interpreting Provider: Callum Hughes MD Chest CTA 10/28/17 09:27 IMPRESSION: 1. No evidence of aortic dissection or aneurysm 2. No evidence of pulmonary embolism 3. No acute intrathoracic or intra abdominopelvic process 4. Calcific Coronary atherosclerosis with small pericardial effusion 5. Stable 1.7 cm right renal lesion, most likely a complicated cyst with solid mass in the differential. Dedicated pre and post contrast imaging would be helpful 6. Right adrenal adenoma 7. Colonic diverticulosis D/ / Jeb Menodza MD / Jeb Mendoza MD Interpreting Provider: Jeb Mendoza MD Head CT 10/28/17 19:04 IMPRESSION: Previously noted heterogeneous density in the brain parenchyma on the recent CT exam is not appreciated on the current exam and was likely artifactual. There is mild multifocal small-vessel ischemic change bilaterally. 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 This may be artifactual. Recent ischemic change would be difficult to exclude. No hemorrhage. D/ / Miguel Angel Mederos / Miguel Angel Mederos Interpreting Provider: Miguel Angel Mederos e Glucose Calcium Magnesium Total Bilirubin AST ALT Alkaline Phosphatase Troponin I 1.37 H* 10/29/17 10/29/17 10/29/17 01:18 07:43 07:43 WBC Hgb 9.8 L Hct 31.0 L Plt Count INR Sodium 140 Potassium 3.8 Chloride 110 H Carbon Dioxide 25 BUN 17 Creatinine 0.75 Glucose 110 H Calcium 9.1 Magnesium 1.7 Total Bilirubin 0.6 AST 18 ALT 8 Alkaline Phosphatase 66 Troponin I 1.26 H* - Imaging and Cardiology Chest Xray: report reviewed Echo: pending - EKG Interpretation EKG results cardiology: personally reviewed Consult Discharge Plan - Plan Referrals: Shaun Pace DO [Primary Care Provider] -
[2017-10-29] MEDS: Tiotropium 18 MCG inhalation IH SCH (10:31)
--- NOTE | 2017-10-29 16:29 | Oncology Inp Consult Note ---
Date of Encounter: 10/29/17 Time of Encounter: 17:00 Assessment and Plan (1) CML (chronic myelocytic leukemia) Status: Chronic Assessment and plan: Patient with chronic myeloid leukemia, poorly tolerated Gleevec currently on the locked and is tolerating it very well 300 mg twice daily dose. We will hold off nilotinib due to recent chest pain and NSTEMI, restart subsequently as an outpatient. The cardiology recommendations reviewed patient is to continue medical management. On antiplatelet therapy with aspirin. The she had history of stomach ulcers ferritin was low with a hemoglobin drop we will recheck ferritin patient is not particularly interested in having another endoscopy to rule out bleeding ulcers at this time. Monitor hemoglobin and hematocrit closely replace iron as necessary if patient is agreeable. The patient to return to my clinic 2 weeks or so after discharge to discuss restarting neurologic no. Echocardiogram findings, CT head, neurology input reviewed Plan of care discussed with patient in detail who stated understanding. - Data of Consult Requesting Physician: Viet Ozuna Primary Care Provider: Shaun Pace DO - Consult Narrative Reason for consult: CML, CP History of present illness: Ms. Desouza is a 87 year old female with medical history significant for hypertension, arthritis, urinary tract infections, COPD, history of breast cancer in 2002 status post lumpectomy radiation therapy and antiestrogen therapy , history of melanoma diagnosed in with recurrence status post lymph node dissection in the right lower extremity with lymphedema, wsa noted to have very high WBC counts, was worked up at [facility] white blood cell count was markedly elevated at 134,000 normal hemoglobin and platelets, hemoglobin was 11.4 platelets of 217, fish on peripheral blood showed 97.6% positivity for BCR ABL 922 translocation diagnostic of CML. She was initiated on Gleevec initially, hospitalized in 11/26 with cytopenia from gleevec and nausea--due to stomach ulcers, s/p EGD. She also needed diuresis--fluid overload from gleevec and rt effusion s/p thoracentesis Started nivolumab since then and treatment is being continued. The patient also had a low ferritin, she did not want oral or intravenous iron replacement therapy at that time. The she reported having chest pain prior to hospitalization seen by cardiology had undergone echocardiogram, management plan for NSTEMI. She is concerned about her medication for CML, reports that pain has improved. Past Med Surg Social Fam HX - Past Medical History Medical history: cancer (CML, prior right lower extremity melanoma, breast cancer, facial skin cancer), COPD, GERD, hypertension, other (Right lower extremity lymphedema) Additional medical history: Vertigo Psychiatric history: no psych history - Past Surgical History Surgical History: cancer surgery (Right lower extremity melanoma excision and lymphatic dissection, facial skin cancer excision, breast lumpectomy), hysterectomy - Social History Smoking Status: Former smoker Smokeless Tobacco Status: No Alcohol use: none Drug use: none - Family History Mother Adopted: No Living Status: Hx Family Cardiac Disorders: Yes (History of nine MD's) Hx Family Respiratory Disorders: No Hx Family Cancer: No Hx Family GI Disorders: No Hx Family Endocrine Disorder: Yes (Severe Diabetic) Hx Family Neuromuscular Disorders: No Hx Family Neurologic Disorders: No Hx Family HEENT Disorders: No Hx Family Autoimmune Disorders: No Father Adopted: No Living Status: Hx Family Cardiac Disorders: Yes (Hypertension) Hx Family Respiratory Disorders: No Hx Family Cancer: No Hx Family GI Disorders: No Hx Family Endocrine Disorder: No Hx Family Neuromuscular Disorders: No Hx Family Neurologic Disorders: No Hx Family HEENT Disorders: No Hx Family Autoimmune Disorders: No Medications and Allergies Losartan Potassium [Cozaar] 100 mg PO DAILY 09/14/16 [History] Meclizine [Antivert] 25 mg PO DAILY PRN 09/14/16 [History] Verapamil ER (24 HR) [Calan SR] 240 mg PO DAILY 09/14/16 [History] Metoprolol Tartrate [Lopressor] 12.5 mg PO BID 10/09/16 [History] Montelukast [Singulair] 10 mg PO DAILY 11/30/16 [History] Tiotropium [place] [Spiriva Respimat] 2 puff IH DAILY 11/30/16 [History] Folic Acid 1 mg PO DAILY #90 tablet 12/25/16 [Rx] Diclofenac Sodium [Voltaren] 1 appl TP BID 02/12/17 [History] Cholecalciferol (Vitamin D3) [Vitamin D] 2,000 unit PO DAILY 05/14/17 [History] Multivitamin [Multivitamins] 1 each PO DAILY 05/14/17 [History] Nilotinib HCl [Tasigna] 300 mg PO BID #120 capsule 05/14/17 [Rx] Omeprazole [PriLOSEC] 40 mg PO DAILY #30 cap 07/26/17 [Rx] 3 Allergy/AdvReac Type Severity Reaction Status Date / Time albuterol AdvReac Seizure Verified 10/28/17 10:12 ciprofloxacin [From Cipro] AdvReac Nausea Verified 10/28/17 10:12 codeine AdvReac Vomiting Verified 10/28/17 10:12 iodine AdvReac Fainting Verified 10/28/17 10:12 pentazocine [From Talwin] AdvReac Hypotension Verified 10/28/17 10:12 prednisone AdvReac See Verified 10/28/17 10:12 Comments Tetracycline AdvReac Unconscious Verified 10/28/17 10:12 steroids AdvReac Cramping Uncoded 10/28/17 10:12 of the Muscles Review of systems: as in HPI Oncology - Exam - Constitutional Vitals: Temp Pulse Resp BP Pulse Ox 98.2 F 63 17 145/58 99 10/29/17 16:21 10/29/17 16:21 10/29/17 16:21 10/29/17 16:21 10/29/17 16:21 Exam: General: Alert and oriented, well appearing. Mental Status: Affect appropriate for circumstances HEENT: Sclerae anicteric. Skin: No rashes or petechiae. Pallor Lymph nodes: No cervical, supraclavicular, axillary adenopathy. Lungs: Clear to auscultation and percussion bilaterally. Cardiovascular: Regular rate and rhythm. Abdomen: Soft, nontender; no organomegaly or masses palpable. Extremities: No edema. No calf swelling or tenderness. Neurologic: Alert, cranial nerves II-XII intact; no focal weakness Oncology - Results Labs: 3 10/29/17 10/29/17 10/29/17 07:43 07:43 01:18 WBC RBC Hgb 9.8 L Hct 31.0 L MCV MCH MCHC RDW Plt Count MPV Immature Gran % Seg Neutrophils % Lymphocytes % Monocytes % Eosinophils % Basophils % Neutrophils # Lymphocytes # Monocytes # Eosinophils # Basophils # PT INR Sodium Potassium Chloride Carbon Dioxide BUN Creatinine Est GFR ( Amer) Est GFR (Non-Af Amer) BUN/Creatinine Ratio Glucose POC Glucose Calculated Osmolality Calcium Magnesium Total Bilirubin AST ALT Alkaline Phosphatase Troponin I 1.26 H* Serum Total Protein Albumin Globulin Albumin/Globulin Ratio Triglycerides 120 Cholesterol 192 LDL Cholesterol, Calc 130 H VLDL Cholesterol, Calc 24 HDL Cholesterol 38 L Cholesterol/HDL Ratio 5.1 H 3 10/29/17 10/29/17 10/29/17 01:18 01:18 01:18 WBC 9.2 RBC 3.44 L Hgb 9.9 L D Hct 30.9 L MCV 89.8 MCH 28.8 MCHC 32.0 RDW 15.1 H Plt Count 216 MPV 9.2 L Immature Gran % 0.7 Seg Neutrophils % 67.0 Lymphocytes % 21.7 Monocytes % 8.0 Eosinophils % 2.2 Basophils % 0.4 Neutrophils # 6.1 Lymphocytes # 2.0 Monocytes # 0.7 Eosinophils # 0.2 Basophils # 0.0 PT 11.3 INR 1.1 Sodium 140 Potassium 3.8 Chloride 110 H Carbon Dioxide 25 BUN 17 Creatinine 0.75 Est GFR ( Amer) > 60 Est GFR (Non-Af Amer) > 60 BUN/Creatinine Ratio 23 Glucose 110 H POC Glucose Calculated Osmolality 292 Calcium 9.1 Magnesium 1.7 Total Bilirubin 0.6 AST 18 ALT 8 Alkaline Phosphatase 66 Troponin I Serum Total Protein 5.5 L Albumin 3.1 L Globulin 2.4 Albumin/Globulin Ratio 1.3 Triglycerides Cholesterol LDL Cholesterol, Calc VLDL Cholesterol, Calc HDL Cholesterol Cholesterol/HDL Ratio 3 10/29/17 10/28/17 10/28/17 01:18 17:28 17:28 WBC 14.0 H D RBC 4.05 Hgb 11.7 Hct 35.8 MCV 88.4 MCH 28.9 MCHC 32.7 RDW 15.1 H Plt Count 282 MPV 9.7 Immature Gran % 0.6 Seg Neutrophils % 64.1 Lymphocytes % 26.3 Monocytes % 6.6 Eosinophils % 2.0 Basophils % 0.4 Neutrophils # 9.0 H Lymphocytes # 3.7 Monocytes # 0.9 Eosinophils # 0.3 Basophils # 0.1 PT INR Sodium 140 Potassium 4.2 Chloride 108 H Carbon Dioxide 22 L BUN 17 Creatinine 0.74 Est GFR ( Amer) > 60 Est GFR (Non-Af Amer) > 60 BUN/Creatinine Ratio 23 Glucose 122 H POC Glucose Calculated Osmolality 293 Calcium 10.1 Magnesium Total Bilirubin AST ALT Alkaline Phosphatase Troponin I 1.37 H* 0.68 H* Serum Total Protein Albumin Globulin Albumin/Globulin Ratio Triglycerides Cholesterol LDL Cholesterol, Calc VLDL Cholesterol, Calc HDL Cholesterol Cholesterol/HDL Ratio 3 10/28/17 10/28/17 17:12 14:33 WBC RBC Hgb Hct MCV MCH MCHC RDW Plt Count MPV Immature Gran % Seg Neutrophils % Lymphocytes % Monocytes % Eosinophils % Basophils % Neutrophils # Lymphocytes # Monocytes # Eosinophils # Basophils # PT INR Sodium Potassium Chloride Carbon Dioxide BUN Creatinine Est GFR ( Amer) Est GFR (Non-Af Amer) BUN/Creatinine Ratio Glucose POC Glucose 114 H Calculated Osmolality Calcium Magnesium Total Bilirubin AST ALT Alkaline Phosphatase Troponin I 0.59 H* Serum Total Protein Albumin Globulin Albumin/Globulin Ratio Triglycerides Cholesterol LDL Cholesterol, Calc VLDL Cholesterol, Calc HDL Cholesterol Cholesterol/HDL Ratio Consult Discharge Plan - Plan Referrals: Shaun Pace DO [Primary Care Provider] -
--- NOTE | 2017-10-29 17:25 | Electrocardiograph Report ---
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
--- NOTE | 2017-10-29 17:28 | Electrocardiograph Report ---
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
[2017-10-30 06:19] LABS: Basophils % 0.5 %; Eosinophils # 0.3 K/mcL (0.0-0.6); Eosinophils % 4.5 %; Hematocrit 31.1 % (35.3-44.9); Hemoglobin 9.7 g/dL (11.5-15.4); Immature Granulocytes % 0.4 % (0-4); Immature Platelets 1.7 % (1.1-6.1); Lymphocytes # 1.8 K/mcL (0.6-4.6); Lymphocytes % 24.3 %; Mean Corpuscular HGB Conc 31.2 g/dL (31.6-35.5); Mean Corpuscular Hemoglobin 28.4 pg (28.0-33.3); Mean Corpuscular Volume 90.9 fL (83.0-100.0); Mean Platelet Volume 9.8 fL (9.4-12.4); Monocytes # 0.6 K/mcL (0.0-1.3); Monocytes % 8.1 %; Neutrophils # 4.7 K/mcL (1.6-8.9); Platelet Count 204 K/mcL (140-400); Red Blood Count 3.42 M/mcL (3.82-4.97); Red Cell Distribution Width 15.2 % (11.5-14.5); Segmented Neutrophils % 62.2 %
[2017-10-30 06:42] LABS: % Iron Saturation 13 % (15-50); Iron 41 mcg/dL (50-170); Transferrin 220 mg/dL (203-362)
[2017-10-30 06:45] LABS: Alanine Aminotransferase 7 Units/L (7-52); Albumin/Globulin Ratio 1.3 (1.1-2.2); Alkaline Phosphatase 57 Units/L (34-104); Aspartate Amino Transferase 17 Units/L (13-39); BUN/Creatinine Ratio 25 (6-26); Bilirubin,Total 0.4 mg/dL (0.3-1.0); Blood Urea Nitrogen 17 mg/dL (8-23); Calcium 8.8 mg/dL (8.6-10.3); Carbon Dioxide 25 mEq/L (23-29); Chloride 109 mEq/L (98-107); Globulin 2.4 g/dL (2.4-3.5); Glucose 107 mg/dL (70-105); Osmolality,Calculated 292 (280-300); Potassium 3.9 mEq/L (3.5-5.1); Sodium 140 mEq/L (136-145); Total Protein 5.4 g/dL (6.4-8.9); eGFR For African Americans > 60 (> 60); eGFR For Non-African Americans > 60 (> 60)
[2017-10-30 07:25] VITALS: BP 162/60
[2017-10-30] MEDS: Tiotropium 18 MCG inhalation IH SCH (07:43)
--- NOTE | 2017-10-30 08:16 | Electrocardiograph Report ---
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
--- NOTE | 2017-10-30 08:39 | Discharge Summary ---
<Amira Santiago - Last Filed: 10/30/17 08:36> - NOTES TO OUTPATIENT PROVIDER Notes to Outpatient Provider: Patient will need to have follow up with Oncology to plan restarting Tasigna. Patient will need outpatient follow up with Cardiology. Patient started on imdur 30mg PO daily, atorvastatin 40mg PO daily and ASA 81mg PO daily. Patient had drop in Hgb to 9.8, which has stabilized after stopping heparin. Will need repeat CBC in 2-3 days. Date of Encounter: 10/30/17 Time of Encounter: 08:36 - Discharge Diagnosis (1) NSTEMI (non-ST elevated myocardial infarction) Priority: Primary Status: Acute (2) Elevated troponin Priority: Secondary Status: Acute (3) Small vessel disease, cerebrovascular Priority: Secondary Status: Acute (4) Pericardial effusion Priority: Secondary Status: Acute (5) CAD (coronary artery disease) Priority: Secondary Status: Chronic Qualifiers: Coronary Disease-Associated Artery/Lesion type: [place] artery [place] vs. transplanted heart: [place] heart Associated angina: angina presence unspecified Qualified Code(s): I25.10 - Atherosclerotic heart disease of [place] coronary artery without angina pectoris (6) COPD (chronic obstructive pulmonary disease) Priority: Secondary Status: Chronic Qualifiers: COPD type: unspecified COPD Qualified Code(s): J44.9 - Chronic obstructive pulmonary disease, unspecified (7) CML (chronic myelocytic leukemia) Priority: Secondary Status: Chronic (8) Anemia Priority: Secondary Status: Acute Qualifiers: Anemia type: unspecified type Qualified Code(s): D64.9 - Anemia, unspecified Hospital course: Ms. Desouza is a 87 year old female who presented to [facility] ED complaining of intermittent chest pain x3 weeks which radiated to her back. A nitro drip was started in the ED, which relieved her pain. She was also hypertensive, which improved with nitro. Her troponin was elevated at 0.06 and she was admitted for observation and management. Her troponins increased to 0.06, 0.59, 0.68, 1.37, 1.26. She did have an acute MAR with rapid drop in blood pressure on nitro. Nitro and heparin drips were stopped and she had a head CT, which was negative for hemorrhage, but did show some areas of subacute ischemia. She did not have any neuro deficits the following morning and heparin and nitro drips were stopped. She was evaluated by neurology, who felt that the symptoms were secondary to drop in blood pressure and recommended MRI follow up, which patient did not desire secondary to severe claustrophobia. Cardiology was consulted and it was determined after discussion with the patient that she would pursue medical management of her NSTEMI. ECHO: LVEF 55%. Normal LV chamber size, wall thickness and overall function. Mild segmental left ventricular systolic dysfunction. Mild left ventricular diastolic dysfunction. Normal right ventricular structure and function. Moderate pulmonary hypertension. Estimated RVSP is 49 mmHg. No significant valvular dysfunction. Patient was started on imdur 30mg daily, atorvastatin 40mg daily and ASA 81mg daily. Her Hgb stabilized after stopping heparin. Oncology has evalutated her as well and is holding Tasigna until they see her outpatient. Patient will be discharged home today in stable condition. 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 - Time Spent with Patient Total time spent providing and/or coordinating discharge services: - Discharge Medications Prescriptions: Nitroglycerin 0.4 mg SL Q5MIN PRN 30 Days #30 tab.subl PRN Reason: Chest Pain Aspirin 81 mg PO DAILY 30 Days #30 tab.chew Atorvastatin [Lipitor] 40 mg PO HS 30 Days #30 tablet Ferrous Sulfate 325 mg PO DAILY #30 tablet.dr Isosorbide MONOnitrate (24 HR) [Imdur] 30 mg PO DAILY 30 Days #30 tab.er.24h Home Medications: Losartan Potassium [Cozaar] 100 mg PO DAILY 09/14/16 [History] Meclizine [Antivert] 25 mg PO DAILY PRN 09/14/16 [History] Verapamil ER (24 HR) [Calan SR] 240 mg PO DAILY 09/14/16 [History] Metoprolol Tartrate [Lopressor] 12.5 mg PO BID 10/09/16 [History] Montelukast [Singulair] 10 mg PO DAILY 11/30/16 [History] Tiotropium [place] [Spiriva Respimat] 2 puff IH DAILY 11/30/16 [History] Folic Acid 1 mg PO DAILY #90 tablet 12/25/16 [Rx] Diclofenac Sodium [Voltaren] 1 appl TP BID 02/12/17 [History] Cholecalciferol (Vitamin D3) [Vitamin D3] 2,000 unit PO DAILY 05/14/17 [History] Multivitamin [Multivitamins] 1 each PO DAILY 05/14/17 [History] Omeprazole [PriLOSEC] 40 mg PO DAILY #30 cap 07/26/17 [Rx] Aspirin 81 mg PO DAILY 30 Days #30 tab.chew 10/30/17 [Rx] Atorvastatin [Lipitor] 40 mg PO HS 30 Days #30 tablet 10/30/17 [Rx] Ferrous Sulfate 325 mg PO DAILY #30 tablet.dr 10/30/17 [Rx] Isosorbide MONOnitrate (24 HR) [Imdur] 30 mg PO DAILY 30 Days #30 tab.er.24h [Rx] Nitroglycerin 0.4 mg SL Q5MIN PRN 30 Days #30 tab.subl 10/30/17 [Rx] Allergies/Adverse Reactions: 3 Allergy/AdvReac Type Severity Reaction Status Date / Time albuterol AdvReac Seizure Verified 10/28/17 10:12 ciprofloxacin [From Cipro] AdvReac Nausea Verified 10/28/17 10:12 codeine AdvReac Vomiting Verified 10/28/17 10:12 iodine AdvReac Fainting Verified 10/28/17 10:12 pentazocine [From Talwin] AdvReac Hypotension Verified 10/28/17 10:12 prednisone AdvReac See Verified 10/28/17 10:12 Comments Tetracycline AdvReac Unconscious Verified 10/28/17 10:12 steroids AdvReac Cramping Uncoded 10/28/17 10:12 of the Muscles Date of admission: 10/28/17 13:02 Primary care physician: Shaun Pace DO Consults: 10/29/17 03:09 Consult to Neurology [CONS] Routine Consulting Provider: [facility] Reason for Consult: Possible TIA/Stroke Time Notified: 08:21 Call Completed: Yes 10/29/17 08:11 Consult to Oncology [CONS] Routine Consulting Provider: [facility] Reason for Consult: Dr. Lozano pt, here with elevated troponin, QT prolongation , possible ischemic changes on head CT Time Notified: 08:11 Call Completed: Yes Discharging clinician: Amira Santiago Anticipated date of discharge: 10/30/17 - Constitutional Vitals: Temp Pulse Resp BP Pulse Ox 98.0 F 71 18 162/60 98 10/30/17 07:22 10/30/17 07:22 10/30/17 07:22 10/30/17 07:22 10/30/17 07:22 General appearance: Present: cooperative, A&O X 3, pleasant, no acute distress, answers questions appropriately - Head Head exam: Present: atraumatic, normocephalic - Eye Eye exam: Present: PERRL, conjuntiva pink, sclera anicteric Pupils: Present: PERRL - Neck Neck exam general surgery: Present: supple, trachea midline. Absent: lymphadenopathy - Respiratory Respiratory exam: Present: CTAB. Absent: accessory muscle use, rales, rhonchi, wheezes - Cardiovascular Cardiovascular exam: Present: RRR, +S1, +S2. Absent: diastolic murmur, gallop, rubs, systolic murmur - GI/Abdominal GI/Abdominal exam: Present: normal bowel sounds, soft, no peritoneal signs. Absent: distended, tenderness - Extremities Exam Extremities exam: Present: pedal edema (right leg), warm, radial pulses palpable and symmetrical. Absent: calf tenderness, cyanotic - Neurological Exam Neurological exam: Present: oriented X3, no focal deficits. Absent: facial droop, speech deficit - Psychiatric Psychiatric exam: Present: normal affect, normal mood - Skin Skin exam: Present: dry, intact - Patient Status Disposition: Home, Self-Care Condition: Good Functional capacity at discharge: independent ambulation Overall status at discharge: patient is back to baseline - Discharge Instructions Instructions: Nitroglycerin (By mouth), Aspirin (By mouth), Isosorbide Mononitrate (By mouth), Atorvastatin (By mouth), Myocardial Infarction (DC), Chest Pain (DC), Chronic Obstructive Pulmonary Disease (DC), Anemia (GEN) Follow Up With: Jasmyn Hutchins MD [Partnered Physician] - 11/19/17 2:20 pm Shaun Pace DO [Primary Care Provider] - 11/12/17 10:00 am Soco Snow DO [Partnered Physician] - (CARDIOLOGY TO CALL WITH APPOINTMENT. ) Additional Instructions: Have your lab drawn in 2-3 days. Do not take the Tasigna until Dr. Lozano instructs you to do so. - Diet and Activity Activity: increase activity as tolerated Diet: advance to your usual diet <Domo Greer - Last Filed: 10/30/17 18:25> Date of Encounter: 10/30/17 - Discharge Diagnosis (1) CML (chronic myelocytic leukemia) Status: Chronic (2) COPD (chronic obstructive pulmonary disease) Status: Chronic Qualifiers: COPD type: unspecified COPD Qualified Code(s): J44.9 - Chronic obstructive pulmonary disease, unspecified (3) Pericardial effusion Status: Acute (4) NSTEMI (non-ST elevated myocardial infarction) Status: Acute (5) Elevated troponin Status: Acute (6) CAD (coronary artery disease) Status: Chronic Qualifiers: Coronary Disease-Associated Artery/Lesion type: [place] artery [place] vs. transplanted heart: [place] heart Associated angina: angina presence unspecified Qualified Code(s): I25.10 - Atherosclerotic heart disease of [place] coronary artery without angina pectoris (7) Small vessel disease, cerebrovascular Status: Acute (8) Anemia Status: Acute Qualifiers: Anemia type: unspecified type Qualified Code(s): D64.9 - Anemia, unspecified Hospital course: Ms. Desouza is a 87 year old female - Time Spent with Patient Total time spent providing and/or coordinating discharge services: Date of admission: 10/28/17 13:02 Primary care physician: Shaun Pace, Consults: 10/29/17 03:09 Consult to Neurology [CONS] Routine Consulting Provider: Neurology [facility] Reason for Consult: Possible TIA/Stroke Time Notified: 08:21 Call Completed: Yes 10/29/17 08:11 Consult to Oncology [CONS] Routine Consulting Provider: [facility] Reason for Consult: Dr. Lozano pt, here with elevated troponin, QT prolongation , possible ischemic changes on head CT Time Notified: 08:11 Call Completed: Yes - Constitutional Vitals: Temp Pulse Resp BP Pulse Ox 98.0 F 71 18 162/60 98 10/30/17 07:22 10/30/17 07:22 10/30/17 07:22 10/30/17 07:22 10/30/17 07:22 - Attending Attestation I examined this patient and my medical decision-making was reviewed with the Resident Physician. I agree with the documented findings, disposition and treatment plan as described except to the extent set forth below.
[2017-10-30] MEDS: Cholecalciferol (D-3) 1,000 UNIT TABLET PO SCH (09:13)
[2017-10-30] MEDS: Multivit/Ca/Min/Fe/FA 1 TAB TABLET PO SCH (09:13)
[2017-10-30] MEDS: Verapamil ER (24 HR) 240 MG TABLET.ER PO SCH (09:13)
[2017-10-30] MEDS: Isosorbide MONOnitrate (24 HR) 30 MG TAB.ER.24H PO SCH (09:14)
[2017-10-30] MEDS: Aspirin 81 MG TAB.CHEW PO SCH (09:14)
--- NOTE | 2017-10-30 10:29 | Oncology Inp Progress Note ---
Date of Encounter: 10/30/17 Time of Encounter: 10:30 (1) Anemia Status: Acute Assessment and plan: Hgb stable at 9.7 today. Ferritin 30, iron 41, 13% saturation Denies s/s bleeding She she had history of stomach ulcers, patient is not particularly interested in having another endoscopy to rule out bleeding ulcers at this time, plan to discuss further as outpatient. Replace iron-offered venofer but patients has IV already removed, she does not wish for IV placement and venofer today. She has transportation issues and wishes to have IV venofer at upcoming appointment with Dr. Lozano. Will schedule treatment visit for this day as well. She was given a rx for oral iron in the meantime but states she will try to take it, however, tolerates PO iron very poorly secondary to constipation/ hemorrhoids She has an OTC stool softener she will take with PO iron. Qualifiers: Anemia type: unspecified type Qualified Code(s): D64.9 - Anemia, unspecified (2) CML (chronic myelocytic leukemia) Status: Chronic Assessment and plan: Patient with chronic myeloid leukemia, poorly tolerated Gleevec currently on nilotinib and is tolerating it very well 300 mg twice daily dose. We will hold off nilotinib due to recent chest pain and NSTEMI, restart subsequently as an outpatient. (3) NSTEMI (non-ST elevated myocardial infarction) Status: Acute Assessment and plan: Cardiology consult note reviewed She prefers medical management with asa, statin, and bb May consider LHC in future, MRI needs completed prior. She is chest pain free currently Following up with cardiology as an outpatient. Oncology: Subj Interval history: Ms. Desouza is resting on the side of the bed. She denies pain, chest pain, SOB , dizziness or headache. She is feeling better and expected for discharge today. She was evaluated by Dr. Lozano yesterday as requested per patient to discuss her Tasigna. No acute changes over night. - Constitutional Vitals: Vital Signs Temp Pulse Resp BP Pulse Ox 10/30/17 07:22 98.0 F 71 18 162/60 98 10/30/17 04:27 74 16 151/70 98 10/29/17 21:00 98.2 F 10/29/17 16:21 98.2 F 63 17 145/58 99 10/29/17 11:24 98.2 F 63 16 136/60 99 10/29/17 10:39 16 98 Intake and Output 10/29/17 10/30/17 10/30/17 23:59 07:59 15:59 Intake Total 290 / 290 480 / 480 Output Total 200 / 200 Balance 290 / 290 -200 / -200 480 / 480 Intake: Oral 290 / 290 480 / 480 Output: Urine 200 / 200 Other: Meal Dinner Breakfast Percent of Meal Consumed 80% 75% Weight 96.7 kg Patient Weight 10/30/17 23:59 Weight 96.7 kg General appearance: cooperative, no acute distress, no febrile - Head Head exam: Present: atraumatic - ENT ENT exam: Present: mucous membranes moist - Respiratory Respiratory exam: Present: CTAB. Absent: respiratory distress - Cardiovascular Cardiovascular exam: Present: RRR, +S1, +S2 - GI/Abdominal GI/Abdominal exam: Present: normal bowel sounds, soft. Absent: guarding, rebound, tenderness - Extremities Exam Extremities exam: Absent: calf tenderness Additional comments: RLE chronic lymphedema - Neurological Exam Neurological exam: Present: alert, oriented X3, no focal deficits, strengths equal and symetr throughout - Psychiatric Psychiatric exam: Present: normal affect, normal mood - Skin Skin exam: Present: dry, intact, normal color, warm Oncology: Obj Data - Labs CBC & Chem 7: 10/30/17 05:43 10/30/17 05:43 - Impressions Impressions Echocardiogram 10/28/17 13:44 Impressions: LVEF 55%. Normal LV chamber size, wall thickness and overall function. Mild segmental left ventricular systolic dysfunction. Mild left ventricular diastolic dysfunction. Normal right ventricular structure and function. Moderate pulmonary hypertension. Estimated RVSP is 49 mmHg. No significant valvular dysfunction. Left Ventricular Wall Motion: Rest Echo Findings The apical septal wall was hypokinetic. All other wall segments showed normal motion. Findings: Study Quality * Technically adequate exam. ECG Findings * Normal sinus rhythm. Left Ventricle * LVEF 55%. * Normal LV chamber size, wall thickness and overall function. * Mild segmental left ventricular systolic dysfunction. * Mild left ventricular diastolic dysfunction. Right Ventricle * Normal right ventricular structure and function. Left Atrium * Moderately dilated left atrium. Right Atrium * Mildly dilated right atrium. Interatrial Septum * Interatrial septum not well evaluated. Aortic Valve * Aortic valve not well visualized. * No aortic regurgitation. * No aortic stenosis. Mitral Valve * Mild mitral annular calcification * Trace mitral regurgitation. * No mitral stenosis. Tricuspid Valve * Normal tricuspid valve structure and function. * Trace tricuspid regurgitation. * Moderate pulmonary hypertension. * Estimated RVSP is 49 mmHg. * Estimated RA pressure is 5 mmHg. Pulmonic Valve * Pulmonic valve not well visualized. Aorta * Normally sized aortic root. Pericardium * The pericardium appears normal. IVC * Normal IVC dimensions and inspiratory collapse. Pulmonary Artery * Normal visualized portions of the main pulmonary artery. - ABG Interpretation ABG results: PT/INR, D-dimer PT 11.3 Seconds (9.4-12.1) 10/29/17 01:18 Consult Discharge Plan - Plan Instructions: Nitroglycerin (By mouth), Aspirin (By mouth), Isosorbide Mononitrate (By mouth), Atorvastatin (By mouth), Myocardial Infarction (DC), Chest Pain (DC), Chronic Obstructive Pulmonary Disease (DC), Anemia (GEN) Additional Instructions: Have your lab drawn in 2-3 days. Do not take the Tasigna until Dr. Lozano instructs you to do so. Referrals: Jasmyn Hutchins MD [Partnered Physician] - 11/19/17 2:20 pm Shaun Pace DO [Primary Care Provider] - 11/12/17 10:00 am Soco Snow DO [Partnered Physician] - (CARDIOLOGY TO CALL WITH APPOINTMENT. ) Prescriptions: Nitroglycerin 0.4 mg SL Q5MIN PRN 30 Days #30 tab.subl PRN Reason: Chest Pain Aspirin 81 mg PO DAILY 30 Days #30 tab.chew Atorvastatin [Lipitor] 40 mg PO HS 30 Days #30 tablet Ferrous Sulfate 325 mg PO DAILY #30 tablet. Isosorbide MONOnitrate (24 HR) [Imdur] 30 mg PO DAILY 30 Days #30 tab.er.24h
--- NOTE | 2017-10-30 10:57 | Neurology Progress Note ---
<Nura Roberts - Last Filed: 10/30/17 11:09> Date of Encounter: 10/30/17 Time of Encounter: 10:55 Assessment and Plan (1) Headache Status: Acute Patient developed headache and neck pain while on NG drip. BP dropped form 190s- 130s systolic. Patient had no AMS, Numbness, tingling, weakness, slurred speech, or vision changes during this event. NG drip was stopped. Patient's headache resolved on it's own after that. This is most likely a NG side effect headache This is a known common complication. The CT showed likely artifact. This can be followed up as an outpatient with an MRI or repeat CT scan. Patient does not need neurology follow up as an out patient. Qualifiers: Headache type: unspecified Headache chronicity pattern: acute headache Intractability: not intractable Qualified Code(s): R51 - Headache Subjective Principal diagnosis: NSTEMI Interval history: 87 year old female c PMHx of cancer (CML, prior right lower extremity melanoma, breast cancer, facial skin cancer), COPD, GERD, hypertension, other (Right lower extremity lymphedema), FOX who reported to [facility] for complaints of chest pain. Patient was being treated with heaparin and NG gtts. She acutely developed headache, neck pain, tacypnea, and SOB. No acute events overnight. Patient has not had any symptoms since the rapid response. Patient feeling well has no complaints at this time. Patient being discharged today by primary team. Objective - Constitutional Vitals: Temp Pulse Resp BP Pulse Ox 98.0 F 71 18 162/60 98 10/30/17 07:22 10/30/17 07:22 10/30/17 07:22 10/30/17 07:22 10/30/17 07:22 - Neurological Exam Sensorimotor examination: Present: intact Motor examination - right side: 4/5: hip flexors, quadriceps, 5/5: deltoids, biceps, triceps, wrist flexion, wrist extension, nuclear powerplant mechanic, tibialis Anterior, toe extension (EHL), plantarflexion Motor examination - left side: 5/5: deltoids, biceps, triceps, wrist flexion, wrist extension, hip flexors, nuclear powerplant mechanic, quadriceps, tibialis Anterior, toe extension (EHL), plantarflexion Sensation intact: Present: intact, light touch Reflexes: Biceps: 2+ Mental Status Examination: Present: awake, alert, oriented to person, oriented to place, oriented to time, follows commands appropriately, answers questions appropriately Cranial nerve examination: Present: PERRL, EOMI, sensory to face intact, no facial asymmetry is present, no dysarthria, hearing is intact symmetrically, soft palate elevates bilaterally upon phonation, flexes SCM and trapezius muscles symmetrically with full power, tongue protrudes midline, no atrophy or facial fasiculations present Cerebellar examination: Present: no dysmetria, performs finger to nose and heel to gray symmetrically without ataxia Results - Laboratory Findings CBC and BMP: 10/30/17 05:43 10/30/17 05:43 Abnormal lab findings: Abnormal lab results RBC 3.42 M/mcL (3.82-4.97) L 10/30/17 05:43 Hgb 9.7 g/dL (11.5-15.4) L 10/30/17 05:43 Hct 31.1 % (35.3-44.9) L 10/30/17 05:43 MCHC 31.2 g/dL (31.6-35.5) L 10/30/17 05:43 RDW 15.2 % (11.5-14.5) H 10/30/17 05:43 APTT 36.5 Seconds (26.0-36.0) H 10/28/17 08:51 Chloride 109 mEq/L (98-107) H 10/30/17 05:43 Glucose 107 mg/dL (70-105) H 10/30/17 05:43 POC Glucose 114 mg/dL (70-99) H 10/28/17 17:12 Iron 41 mcg/dL (50-170) L 10/30/17 05:43 % Saturation 13 % (15-50) L 10/30/17 05:43 Troponin I 1.26 ng/mL (< 0.04) H* 10/29/17 07:43 Serum Total Protein 5.4 g/dL (6.4-8.9) L 10/30/17 05:43 Albumin 3.0 g/dL (3.5-5.7) L 10/30/17 05:43 LDL Cholesterol, Calc 130 mg/dL (0-99) H 10/29/17 01:18 HDL Cholesterol 38 mg/dL (40-59) L 10/29/17 01:18 Cholesterol/HDL Ratio 5.1 (0-4.9) H 10/29/17 01:18 Consult Discharge Plan - Plan Instructions: Nitroglycerin (By mouth), Aspirin (By mouth), Isosorbide Mononitrate (By mouth), Atorvastatin (By mouth), Myocardial Infarction (DC), Chest Pain (DC), Chronic Obstructive Pulmonary Disease (DC), Anemia (GEN) Additional Instructions: Have your lab drawn in 2-3 days. Do not take the Tasigna until Dr. Lozano instructs you to do so. Referrals: Jasmyn Hutchins MD [Partnered Physician] - 11/19/17 2:20 pm Shaun Pace DO [Primary Care Provider] - 11/12/17 10:00 am Soco Snow DO [Partnered Physician] - (CARDIOLOGY TO CALL WITH APPOINTMENT. ) Prescriptions: Nitroglycerin 0.4 mg SL Q5MIN PRN 30 Days #30 tab.subl PRN Reason: Chest Pain Aspirin 81 mg PO DAILY 30 Days #30 tab.chew Atorvastatin [Lipitor] 40 mg PO HS 30 Days #30 tablet Ferrous Sulfate 325 mg PO DAILY #30 tablet. Isosorbide MONOnitrate (24 HR) [Imdur] 30 mg PO DAILY 30 Days #30 tab.er.24h <Corinne Melendez I - Last Filed: 10/30/17 13:48> Date of Encounter: 10/30/17 Assessment and Plan (1) Headache Status: Acute Pt was seen and examined, my medical decision was reviewed with the Resident Physician, I agree with the documented findings, disposition and treatment plas as described except to the extent set forth below Corinne Melendez MD Qualifiers: Headache type: unspecified Headache chronicity pattern: acute headache Intractability: not intractable Qualified Code(s): R51 - Headache Objective - Constitutional Vitals: Temp Pulse Resp BP Pulse Ox 98.0 F 71 18 162/60 98 10/30/17 07:22 10/30/17 07:22 10/30/17 07:22 10/30/17 07:22 10/30/17 07:22 Results - Laboratory Findings CBC and BMP: 10/30/17 05:43 10/30/17 05:43 Abnormal lab findings: Abnormal lab results RBC 3.42 M/mcL (3.82-4.97) L 10/30/17 05:43 Hgb 9.7 g/dL (11.5-15.4) L 10/30/17 05:43 Hct 31.1 % (35.3-44.9) L 10/30/17 05:43 MCHC 31.2 g/dL (31.6-35.5) L 10/30/17 05:43 RDW 15.2 % (11.5-14.5) H 10/30/17 05:43 APTT 36.5 Seconds (26.0-36.0) H 10/28/17 08:51 Chloride 109 mEq/L (98-107) H 10/30/17 05:43 Glucose 107 mg/dL (70-105) H 10/30/17 05:43 POC Glucose 114 mg/dL (70-99) H 10/28/17 17:12 Iron 41 mcg/dL (50-170) L 10/30/17 05:43 % Saturation 13 % (15-50) L 10/30/17 05:43 Troponin I 1.26 ng/mL (< 0.04) H* 10/29/17 07:43 Serum Total Protein 5.4 g/dL (6.4-8.9) L 10/30/17 05:43 Albumin 3.0 g/dL (3.5-5.7) L 10/30/17 05:43 LDL Cholesterol, Calc 130 mg/dL (0-99) H 10/29/17 01:18 HDL Cholesterol 38 mg/dL (40-59) L 10/29/17 01:18 Cholesterol/HDL Ratio 5.1 (0-4.9) H 10/29/17 01:18
== END 2017-10-30 12:05 | disposition home or self-care (01) | DRG 281 ==
LOC: 2NENU 08:37 → EMEROO 08:37 → 2NENU 13:42
PROVIDERS: ADMIT Family Medicine; ATTEND Family Medicine

== ENCOUNTER 2017-10-31 08:56 | Inpatient (IN) ==
[2017-10-31 09:19] LABS: Basophils # 0.1 K/mcL (0.0-0.2); Basophils % 0.6 %; Eosinophils # 0.3 K/mcL (0.0-0.6); Hematocrit 34.4 % (35.3-44.9); Hemoglobin 10.9 g/dL (11.5-15.4); Immature Granulocytes % 0.4 % (0-4); Mean Corpuscular HGB Conc 31.7 g/dL (31.6-35.5); Mean Corpuscular Hemoglobin 28.5 pg (28.0-33.3); Mean Corpuscular Volume 89.8 fL (83.0-100.0); Mean Platelet Volume 9.2 fL (9.4-12.4); Monocytes # 0.6 K/mcL (0.0-1.3); Monocytes % 6.6 %; Neutrophils # 5.4 K/mcL (1.6-8.9); Platelet Count 222 K/mcL (140-400); Red Blood Count 3.83 M/mcL (3.82-4.97); Segmented Neutrophils % 64.4 %
[2017-10-31 09:28] LABS: Prothrombin Time 10.9 Seconds (9.4-12.1)
[2017-10-31 09:30] LABS: Activated Partial Thrombo Time 35.9 Seconds (26.0-36.0)
--- NOTE | 2017-10-31 09:32 | Emergency Department Note ---
Disposition Clinical Impression: Elevated troponin level Chest pain Qualifiers: Chest pain type: unspecified Qualified Code(s): R07.9 - Chest pain, unspecified Disposition: Admitted As Inpatient Condition: Fair Referrals: Shaun Pace DO [Primary Care Provider] - Forms: ED Satisfaction Letter Time of Disposition: 10:13 Chest Pain HPI - General Chief Complaint: ED Chest Pain Stated Complaint: chest pain Time Seen by Provider: 10/31/17 08:59 Source: patient, EMS Mode of arrival: EMS Limitations: no limitations Vital Signs Reviewed: Yes Nursing Notes Reviewed: Yes - History of Present Illness HPI Narrative: Alert and oriented nontoxic-appearing 87-year-old female is brought by EMS from an extended care facility for evaluation of left-sided chest pain that radiated into her left upper extremity and left neck. She states that she awoke with symptoms twice overnight, the first of which being at 3:00 AM. She described the pain as sharp and rated and a 10 out of 10 on a 10 point scale initially prior to the administration of nitroglycerin and aspirin per EMS. After the administration of a single nitroglycerin tablet, he states that her pain dropped to a 4 out of 10. She was just discharged from this facility yesterday after a short stay for evaluation of 3 weeks worth of intermittent left-sided chest pain. Review of records from that visit shows that cardiology was consult at and a left heart Was discussed however the patient declined. She was discharged home with prescriptions for nitroglycerin and Imdur however she states that she has yet to be able to fill either of these medications since discharge. Pt complaint: chest pain Onset (ago): hour(s) Duration: other (improved) Onset: awoke with symptoms Pain Location: left chest Severity: moderate Severity scale (1-10): 4 Quality: sharp Pain Radiation: LUE, neck Improves with: nitroglycerin Associated symptoms: Denies: nausea, vomiting, diaphoresis, dyspnea Treatments prior to arrival chest pain: aspirin, nitroglycerin - Related Data Home Medications Medication Instructions Recorded Confirmed Losartan Potassium [Cozaar] 100 mg PO DAILY 09/14/16 10/28/17 Meclizine [Antivert] 25 mg PO DAILY PRN 09/14/16 10/28/17 Verapamil ER (24 HR) [Calan SR] 240 mg PO DAILY 09/14/16 10/28/17 Metoprolol Tartrate [Lopressor] 12.5 mg PO BID 10/09/16 10/28/17 Montelukast [Singulair] 10 mg PO DAILY 11/30/16 10/28/17 Tiotropium [place] [Spiriva 2 puff IH DAILY 11/30/16 10/28/17 Respimat] Diclofenac Sodium [Voltaren] 1 appl TP BID 02/12/17 10/28/17 Cholecalciferol (Vitamin D3) 2,000 unit PO DAILY 05/14/17 10/28/17 [Vitamin D3] Multivitamin [Multivitamins] 1 each PO DAILY 05/14/17 10/28/17 Previous Rx's Medication Instructions Recorded Folic Acid 1 mg PO DAILY #90 tablet 12/25/16 Omeprazole [PriLOSEC] 40 mg PO DAILY #30 cap 07/26/17 Aspirin 81 mg PO DAILY 30 Days #30 tab.chew 10/30/17 Atorvastatin [Lipitor] 40 mg PO HS 30 Days #30 tablet 10/30/17 Ferrous Sulfate 325 mg PO DAILY #30 tablet.dr 10/30/17 Isosorbide MONOnitrate (24 HR) 30 mg PO DAILY 30 Days #30 10/30/17 [Imdur] tab.er.24h Nitroglycerin 0.4 mg SL Q5MIN PRN 30 Days #30 10/30/17 tab.subl Allergies Allergy/AdvReac Type Severity Reaction Status Date / Time albuterol AdvReac Seizure Verified 10/28/17 10:12 ciprofloxacin [From Cipro] AdvReac Nausea Verified 10/28/17 10:12 codeine AdvReac Vomiting Verified 10/28/17 10:12 iodine AdvReac Fainting Verified 10/28/17 10:12 pentazocine [From Talwin] AdvReac Hypotension Verified 10/28/17 10:12 prednisone AdvReac See Verified 10/28/17 10:12 Comments Tetracycline AdvReac Unconscious Verified 10/28/17 10:12 steroids AdvReac Cramping Uncoded 10/28/17 10:12 of the Muscles All systems ED: reviewed and negative except as stated. Constitutional: Denies: fever, chills, weakness, weight change Eyes: Denies: eye pain, eye discharge, vision change ENT ED: Denies: ear pain, throat pain, dental pain, hearing loss, epistaxis, congestion, dysphagia Cardiovascular: Reports: as per HPI, chest pain. Denies: palpitations, dyspnea on exertion, edema, syncope Respiratory: Denies: cough, dyspnea, wheezes, hemoptysis, stridor Gastrointestinal: Denies: abdominal pain, nausea, vomiting, diarrhea, constipation, hematemesis, melena, hematochezia Genitourinary: Denies: dysuria, frequency, hematuria, discharge Musculoskeletal: Denies: back pain, neck pain, arthralgia, myalgia Integumentary: Denies: rash, abrasion, lesions Neurological: Denies: headache, weakness, numbness, paresthesias, confusion, abnormal gait, vertigo Psychiatric: Denies: anxiety, depression, suicidal thoughts, homicidal thoughts , auditory hallucinations, visual hallucinations Endocrine: Denies: fatigue Hematological/Lymphatic: Denies: easy bleeding, easy bruising Allergic/Immunologic: Denies: facial swelling, urticaria Chest Pain PMH - Past Medical History Medical history: Reports: cancer, COPD, GERD, hypertension, other Surgical history: Reports: cancer surgery (Right lower extremity melanoma excision and lymphatic dissection, facial skin cancer excision, breast lumpectomy), hysterectomy Psychiatric history: Reports: no psych history - Social History Smoking Status: Former smoker Alcohol use: Reports: none Drug use: Reports: none Physical Exam - General Limitations: physical limitation, age, other General appearance: alert, in no apparent distress - Head Head exam: atraumatic, normocephalic, normal inspection - Eye Eye exam: Present: normal appearance, PERRL, EOMI. Absent: nystagmus - ENT ENT exam: mucous membranes moist - Neck Neck exam: Present: normal inspection, full ROM, trachea midline - Chest Chest inspection: Present: normal inspection, symmetric chest wall rise - Respiratory Respiratory exam: Present: normal lung sounds bilaterally. Absent: respiratory distress, wheezes, stridor, accessory muscle use, prolonged expiratory phase - Cardiovascular Cardiovascular exam: Present: regular rate, normal rhythm, normal heart sounds - Abdominal Exam Abdominal exam: Present: soft, Non-Tender, normal bowel sounds - Extremities Exam Extremities exam: Present: normal inspection, full ROM. Absent: tenderness, pedal edema - Neurological Exam Neurological exam: Present: alert, oriented X3 - Psychiatric Psychiatric exam: Present: normal affect, normal mood - Skin Skin exam: Present: warm, dry, intact, normal color Course Course Narrative: 0976: I spoke with Dr. De La Fuente, licensed loan officer assistant addiction medicine physician, who will consult on the patient in house. 1010: I spoke with Dr. Thornton, hospitalist on-call. Dr. Thornton has agreed to accept the patient for admission to the hospital service for further care and management with inpatient cardiac consultation. I discussed this plan with Dr. Marcelo Dc. Dr. Marcelo Dc has had a [id number] evaluation with the patient and agrees with this plan. Vital Signs Temperature 98.5 F 10/31/17 09:00 Pulse Rate 74 10/31/17 09:00 Respiratory Rate 17 10/31/17 09:00 Blood Pressure 171/74 10/31/17 09:00 O2 Sat by Pulse Oximetry 98 10/31/17 09:00 Temperature 98.5 F 10/31/17 09:00 Pulse Rate 81 10/31/17 10:08 Respiratory Rate 18 10/31/17 10:08 Blood Pressure 123/59 10/31/17 10:08 O2 Sat by Pulse Oximetry 97 10/31/17 10:08 Oxygen Delivery Oxygen Delivery Room Air Chest Pain - MDM Narrative Medical decision making narrative: The patient's initial troponin is elevated at 0.23, however this is significantly improved from her last troponin drawn on 10/29/17 just prior to discharge. At that time, the troponin had trended down to 1.26. - Medical Records Medical records reviewed: Yes I reviewed the patient's medical records. - Lab Data Lab results reviewed: Yes I reviewed the patient's lab results. Lab results narrative: Lab Results 10/31/17 10/31/17 10/31/17 Range/Units 09:01 09:01 09:01 WBC 8.3 (4.3-11.1) K/mcL RBC 3.83 (3.82-4.97) M/mcL Hgb 10.9 L (11.5-15.4) g/dL Hct 34.4 L (35.3-44.9) % MCV 89.8 (83.0-100.0) fL MCH 28.5 (28.0-33.3) pg MCHC 31.7 (31.6-35.5) g/dL RDW 15.0 H (11.5-14.5) % Plt Count 222 (140-400) K/mcL MPV 9.2 L (9.4-12.4) fL Immature Gran % 0.4 (0-4) % Seg Neutrophils % 64.4 % Lymphocytes % 24.0 % Monocytes % 6.6 % Eosinophils % 4.0 % Basophils % 0.6 % Neutrophils # 5.4 (1.6-8.9) K/mcL Lymphocytes # 2.0 (0.6-4.6) K/mcL Monocytes # 0.6 (0.0-1.3) K/mcL Eosinophils # 0.3 (0.0-0.6) K/mcL Basophils # 0.1 (0.0-0.2) K/mcL PT 10.9 (9.4-12.1) Seconds INR 1.0 APTT 35.9 (26.0-36.0) Seconds Sodium 140 (136-145) mEq/L Potassium 3.8 (3.5-5.1) mEq/L Chloride 108 H (98-107) mEq/L Carbon Dioxide 26 (23-29) mEq/L BUN 14 (8-23) mg/dL Creatinine 0.68 (0.60-1.20) mg/dL Est GFR ( Amer) > 60 (> 60) Est GFR (Non-Af Amer) > 60 (> 60) BUN/Creatinine Ratio 21 (6-26) Glucose 103 (70-105) mg/dL Calculated Osmolality 291 (280-300) Calcium 9.2 (8.6-10.3) mg/dL Troponin I 0.23 H* (< 0.04) ng/mL Result diagrams: 10/31/17 09:10/31/17 09:01 Lab Results 10/31/17 10/31/17 10/31/17 Range/Units 09:01 09:01 09:01 WBC 8.3 (4.3-11.1) K/mcL RBC 3.83 (3.82-4.97) M/mcL Hgb 10.9 L (11.5-15.4) g/dL Hct 34.4 L (35.3-44.9) % MCV 89.8 (83.0-100.0) fL MCH 28.5 (28.0-33.3) pg MCHC 31.7 (31.6-35.5) g/dL RDW 15.0 H (11.5-14.5) % Plt Count 222 (140-400) K/mcL MPV 9.2 L (9.4-12.4) fL Immature Gran % 0.4 (0-4) % Seg Neutrophils % 64.4 % Lymphocytes % 24.0 % Monocytes % 6.6 % Eosinophils % 4.0 % Basophils % 0.6 % Neutrophils # 5.4 (1.6-8.9) K/mcL Lymphocytes # 2.0 (0.6-4.6) K/mcL Monocytes # 0.6 (0.0-1.3) K/mcL Eosinophils # 0.3 (0.0-0.6) K/mcL Basophils # 0.1 (0.0-0.2) K/mcL PT 10.9 (9.4-12.1) Seconds INR 1.0 APTT 35.9 (26.0-36.0) Seconds Sodium 140 (136-145) mEq/L Potassium 3.8 (3.5-5.1) mEq/L Chloride 108 H (98-107) mEq/L Carbon Dioxide 26 (23-29) mEq/L BUN 14 (8-23) mg/dL Creatinine 0.68 (0.60-1.20) mg/dL Est GFR ( Amer) > 60 (> 60) Est GFR (Non-Af Amer) > 60 (> 60) BUN/Creatinine Ratio 21 (6-26) Glucose 103 (70-105) mg/dL Calculated Osmolality 291 (280-300) Calcium 9.2 (8.6-10.3) mg/dL Troponin I 0.23 H* (< 0.04) ng/mL - Radiology Data Radiology results reviewed: Yes I reviewed the patient's radiology results. Chest X-Ray 10/31/17 09:01 IMPRESSION: No acute process. Stable exam. D/ / Troy Mckay MD / Troy Mckay MD Interpreting Provider: Troy Mckay MD - EKG Data EKG attestation: Yes I reviewed and interpreted this EKG. EKG results narrative: EKG reviewed by Dr. Marcelo Dc as well. EKG shows a sinus rhythm with an apparent improving wellen-like pattern when compared to an EKG dated from 10/29/17. Ventricular rate 76 bpm. CO interval 187, QRS duration 85, QT/QTc interval 390/ 43.
[2017-10-31 09:36] LABS: BUN/Creatinine Ratio 21 (6-26); Blood Urea Nitrogen 14 mg/dL (8-23); Calcium 9.2 mg/dL (8.6-10.3); Carbon Dioxide 26 mEq/L (23-29); Chloride 108 mEq/L (98-107); Glucose 103 mg/dL (70-105); Osmolality,Calculated 291 (280-300); Potassium 3.8 mEq/L (3.5-5.1); Sodium 140 mEq/L (136-145); eGFR For African Americans > 60 (> 60); eGFR For Non-African Americans > 60 (> 60)
[2017-10-31 09:44] LABS: Troponin I 0.23 ng/mL (< 0.04)
[2017-10-31] MEDS ORDERED: Ondansetron 4 MG/2 ML VIAL IVP ONE (09:45)
[2017-10-31] MEDS: Nitroglycerin 0.4 MG TAB.SUBL SL PRN ×2 (10:03→10:09)
[2017-10-31] MEDS ORDERED: Naloxone 0.4 MG/ML INJ IVP PRN (10:23)
--- NOTE | 2017-10-31 10:25 | Emergency Department Note ---
Disposition Clinical Impression: Elevated troponin level Chest pain Qualifiers: Chest pain type: unspecified Qualified Code(s): R07.9 - Chest pain, unspecified Disposition: Admitted As Inpatient Condition: Fair Referrals: Shaun Pace DO [Primary Care Provider] - Forms: ED Satisfaction Letter General Adult HPI - General Chief complaint: ED Chest Pain Stated complaint: chest pain Time Seen by Provider: 10/31/17 08:59 Source: patient, EMS Mode of arrival: EMS Limitations: physical limitation, age, other - History of Present Illness Pain Scale: 4 - Related Data Home Medications Medication Instructions Recorded Confirmed Losartan Potassium [Cozaar] 100 mg PO DAILY 09/14/16 10/31/17 Meclizine [Antivert] 25 mg PO DAILY PRN 09/14/16 10/31/17 Verapamil ER (24 HR) [Calan SR] 240 mg PO DAILY 09/14/16 10/31/17 Metoprolol Tartrate [Lopressor] 12.5 mg PO BID 10/09/16 10/31/17 Montelukast [Singulair] 10 mg PO DAILY 11/30/16 10/31/17 Tiotropium [place] [Spiriva 2 puff IH DAILY 11/30/16 10/31/17 Respimat] Diclofenac Sodium [Voltaren] 1 appl TP BID 02/12/17 10/31/17 Cholecalciferol (Vitamin D3) 2,000 unit PO DAILY 05/14/17 10/31/17 [Vitamin D3] Multivitamin [Multivitamins] 1 each PO DAILY 05/14/17 10/31/17 Previous Rx's Medication Instructions Recorded Folic Acid 1 mg PO DAILY #90 tablet 12/25/16 Omeprazole [PriLOSEC] 40 mg PO DAILY #30 cap 07/26/17 Aspirin 81 mg PO DAILY 30 Days #30 tab.chew 10/30/17 Atorvastatin [Lipitor] 40 mg PO HS 30 Days #30 tablet 10/30/17 Ferrous Sulfate 325 mg PO DAILY #30 tablet.dr 10/30/17 Isosorbide MONOnitrate (24 HR) 30 mg PO DAILY 30 Days #30 10/30/17 [Imdur] tab.er.24h Nitroglycerin 0.4 mg SL Q5MIN PRN 30 Days #30 10/30/17 tab.subl Allergies Allergy/AdvReac Type Severity Reaction Status Date / Time albuterol AdvReac Seizure Verified 10/28/17 10:12 ciprofloxacin [From Cipro] AdvReac Nausea Verified 10/28/17 10:12 codeine AdvReac Vomiting Verified 10/28/17 10:12 iodine AdvReac Fainting Verified 10/28/17 10:12 pentazocine [From [place]win] AdvReac Hypotension Verified 10/28/17 10:12 prednisone AdvReac See Verified 10/28/17 10:12 Comments Tetracycline AdvReac Unconscious Verified 10/28/17 10:12 steroids AdvReac Cramping Uncoded 10/28/17 10:12 of the Muscles Constitutional: Denies: fever, chills, weakness, weight change Eyes: Denies: eye pain, eye discharge, vision change ENT ED: Denies: ear pain, throat pain, dental pain, hearing loss, epistaxis, congestion, dysphagia Cardiovascular: Reports: as per HPI, chest pain. Denies: palpitations, dyspnea on exertion, edema, syncope Respiratory: Denies: cough, dyspnea, wheezes, hemoptysis, stridor Gastrointestinal: Denies: abdominal pain, nausea, vomiting, diarrhea, constipation, hematemesis, melena, hematochezia Genitourinary: Denies: dysuria, frequency, hematuria, discharge Musculoskeletal: Denies: back pain, neck pain, arthralgia, myalgia Integumentary: Denies: rash, abrasion, lesions Neurological: Denies: headache, weakness, numbness, paresthesias, confusion, abnormal gait, vertigo Psychiatric: Denies: anxiety, depression, suicidal thoughts, homicidal thoughts , auditory hallucinations, visual hallucinations Endocrine: Denies: fatigue Hematological/Lymphatic: Denies: easy bleeding, easy bruising Allergic/Immunologic: Denies: facial swelling, urticaria Past Medical History - Past Medical History Medical history: Reports: cancer, COPD, GERD, hypertension, other Surgical history: Reports: cancer surgery (Right lower extremity melanoma excision and lymphatic dissection, facial skin cancer excision, breast lumpectomy), hysterectomy Psychiatric history: Reports: no psych history - Social History Smoking Status: Former smoker Smokeless Tobacco Status: No Alcohol use: Reports: none Drug use: Reports: none Physical Exam - General Limitations: physical limitation, age, other General appearance: alert, in no apparent distress Course Vital Signs Temperature 98.5 F 10/31/17 09:00 Pulse Rate 74 10/31/17 09:00 Respiratory Rate 17 10/31/17 09:00 Blood Pressure 171/74 10/31/17 09:00 O2 Sat by Pulse Oximetry 98 10/31/17 09:00 Temperature 98.5 F 10/31/17 09:00 Pulse Rate 85 10/31/17 10:13 Respiratory Rate 16 10/31/17 10:13 Blood Pressure 124/61 10/31/17 10:13 O2 Sat by Pulse Oximetry 97 10/31/17 10:13 Oxygen Delivery Oxygen Delivery Nasal Cannula Medical Decision Making - Lab Data Result diagrams: 10/31/17 09:01 10/31/17 09:01 Lab Results 10/31/17 10/31/17 10/31/17 Range/Units 09:01 09:01 09:01 WBC 8.3 (4.3-11.1) K/mcL RBC 3.83 (3.82-4.97) M/mcL Hgb 10.9 L (11.5-15.4) g/dL Hct 34.4 L (35.3-44.9) % MCV 89.8 (83.0-100.0) fL MCH 28.5 (28.0-33.3) pg MCHC 31.7 (31.6-35.5) g/dL RDW 15.0 H (11.5-14.5) % Plt Count 222 (140-400) K/mcL MPV 9.2 L (9.4-12.4) fL Immature Gran % 0.4 (0-4) % Seg Neutrophils % 64.4 % Lymphocytes % 24.0 % Monocytes % 6.6 % Eosinophils % 4.0 % Basophils % 0.6 % Neutrophils # 5.4 (1.6-8.9) K/mcL Lymphocytes # 2.0 (0.6-4.6) K/mcL Monocytes # 0.6 (0.0-1.3) K/mcL Eosinophils # 0.3 (0.0-0.6) K/mcL Basophils # 0.1 (0.0-0.2) K/mcL PT 10.9 (9.4-12.1) Seconds INR 1.0 APTT 35.9 (26.0-36.0) Seconds Sodium 140 (136-145) mEq/L Potassium 3.8 (3.5-5.1) mEq/L Chloride 108 H (98-107) mEq/L Carbon Dioxide 26 (23-29) mEq/L BUN 14 (8-23) mg/dL Creatinine 0.68 (0.60-1.20) mg/dL Est GFR ( Amer) > 60 (> 60) Est GFR (Non-Af Amer) > 60 (> 60) BUN/Creatinine Ratio 21 (6-26) Glucose 103 (70-105) mg/dL Calculated Osmolality 291 (280-300) Calcium 9.2 (8.6-10.3) mg/dL Troponin I 0.23 H* (< 0.04) ng/mL Attestation Statement - Attestation Attestation: I examined this patient and my medical decision-making was reviewed with the Resident Physician. I agree with the documented findings, disposition and treatment plan as described except to the extent set forth below. 87 year old female presents to the ED with chest pain and most recently discharged from the hospital after she declined cardiac catherization. She has changed her mind and would like to be re-admitted for cardiac catherization because she woke up this monirng with excrucitating chest pain .Pavan has a wellens type pattern to her EKG which is improving from her recenet admission and her troponin is also imprvin. Pavan has been accpetd to medicine
[2017-10-31] MEDS ORDERED: 0.9 % Sodium Chloride 1,000 ML IVC SCH (10:30)
[2017-10-31] MEDS ORDERED: Nitroglycerin 0.4 MG TAB.SUBL SL PRN (10:30)
--- NOTE | 2017-10-31 10:57 | Internal Med History&Physical ---
Date of Encounter: 10/31/17 Time of Encounter: 11:00 Internal Medicine - H&P: HPI Chief complaint: Chest pain Admitted From: Home Plans for Post Hospital Care: Home History of present illness: Ms. Desouza is a 87 year old female with a history of coronary artery disease who was admitted and discharged yesterday from this facility with acute coronary syndrome. Patient was seen by cardiology and recommended to have cardiac catheter patient elected not to have the catheter and wanted to try medical management. Patient went home and this morning she had substernal chest pain, she took nitroglycerin and she was given 2 nitroglycerin in the emergency department and her chest pain subsided. Patient is willing to have cardiac catheter now. Cardiology Dr. De La Fuente contacted from the emergency department and will see the patient on consult. Past Med Surg Social Fam HX - Past Medical History Medical history: cancer, COPD, GERD, hypertension, other Additional medical history: Vertigo Psychiatric history: no psych history - Past Surgical History Surgical History: cancer surgery (Right lower extremity melanoma excision and lymphatic dissection, facial skin cancer excision, breast lumpectomy), hysterectomy - Social History Smoking Status: Former smoker Smokeless Tobacco Status: No Alcohol use: none Drug use: none - Family History Mother Adopted: No Living Status: Hx Family Cardiac Disorders: Yes (History of nine IN's) Hx Family Respiratory Disorders: No Hx Family Cancer: No Hx Family GI Disorders: No Hx Family Endocrine Disorder: Yes (Severe Diabetic) Hx Family Neuromuscular Disorders: No Hx Family Neurologic Disorders: No Hx Family HEENT Disorders: No Hx Family Autoimmune Disorders: No Father Adopted: No Living Status: Hx Family Cardiac Disorders: Yes (Hypertension) Hx Family Respiratory Disorders: No Hx Family Cancer: No Hx Family GI Disorders: No Hx Family Endocrine Disorder: No Hx Family Neuromuscular Disorders: No Hx Family Neurologic Disorders: No Hx Family HEENT Disorders: No Hx Family Autoimmune Disorders: No Internal Medicine - H&P: Meds Losartan Potassium [Cozaar] 100 mg PO DAILY 09/14/16 [History] Meclizine [Antivert] 25 mg PO DAILY PRN 09/14/16 [History] Verapamil ER (24 HR) [Calan SR] 240 mg PO DAILY 09/14/16 [History] Metoprolol Tartrate [Lopressor] 12.5 mg PO BID 10/09/16 [History] Montelukast [Singulair] 10 mg PO DAILY 11/30/16 [History] Tiotropium [place] [Spiriva Respimat] 2 puff IH DAILY 11/30/16 [History] Folic Acid 1 mg PO DAILY #90 tablet 12/25/16 [Rx] Diclofenac Sodium [Voltaren] 1 appl TP BID 02/12/17 [History] Cholecalciferol (Vitamin D3) [Vitamin D3] 2,000 unit PO DAILY 05/14/17 [History] Multivitamin [Multivitamins] 1 each PO DAILY 05/14/17 [History] Omeprazole [PriLOSEC] 40 mg PO DAILY #30 cap 07/26/17 [Rx] Aspirin 81 mg PO DAILY 30 Days #30 tab.chew 10/30/17 [Rx] Atorvastatin [Lipitor] 40 mg PO HS 30 Days #30 tablet 10/30/17 [Rx] Ferrous Sulfate 325 mg PO DAILY #30 tablet.dr 10/30/17 [Rx] Isosorbide MONOnitrate (24 HR) [Imdur] 30 mg PO DAILY 30 Days #30 tab.er.24h [Rx] Nitroglycerin 0.4 mg SL Q5MIN PRN 30 Days #30 tab.subl 10/30/17 [Rx] 3 Allergy/AdvReac Type Severity Reaction Status Date / Time albuterol AdvReac Seizure Verified 10/28/17 10:12 ciprofloxacin [From Cipro] AdvReac Nausea Verified 10/28/17 10:12 codeine AdvReac Vomiting Verified 10/28/17 10:12 iodine AdvReac Fainting Verified 10/28/17 10:12 pentazocine [From [place]] AdvReac Hypotension Verified 10/28/17 10:12 prednisone AdvReac See Verified 10/28/17 10:12 Comments Tetracycline AdvReac Unconscious Verified 10/28/17 10:12 steroids AdvReac Cramping Uncoded 10/28/17 10:12 of the Muscles All Systems PM: A 10-system review of systems was performed and is negative for pertinent findings except as documented above in the HPI. Review of systems: Comprehensive 10 point review of system was done and it was negative other than what was mentioned above - Constitutional Vitals: Temp Pulse Resp BP Pulse Ox 98.5 F 85 16 124/61 97 10/31/17 09:00 10/31/17 10:13 10/31/17 10:13 10/31/17 10:13 10/31/17 10:13 General appearance: Present: A&O X 3 - Head Head exam: Present: atraumatic, normocephalic - Eye Eye exam: Present: PERRL, conjuntiva pink, sclera anicteric Pupils: Present: PERRL - Neck Neck exam general surgery: Present: supple, trachea midline. Absent: lymphadenopathy - Respiratory Respiratory exam: Present: CTAB. Absent: accessory muscle use, rales, rhonchi, wheezes - Cardiovascular Cardiovascular exam: Present: RRR, +S1, +S2. Absent: diastolic murmur, gallop, rubs, systolic murmur - GI/Abdominal GI/Abdominal exam: Present: normal bowel sounds, soft, no peritoneal signs. Absent: distended, tenderness - Extremities Exam Additional comments: Chronic lymphedema right lower extremity - Neurological Exam Neurological exam: Present: CN II-XII intact, oriented X3, no focal deficits. Absent: pronater drift, facial droop, speech deficit Internal Med - H&P Results - Labs CBC & Chem 7: 10/31/17 09:01 10/31/17 09:01 - Assessment and plan (1) Acute coronary syndrome Current Visit: Yes Status: Acute Assessment and plan: Non-ST elevation IN Start heparin drip ACS protocol Aspirin, beta erich, statin, nitrates Continue his ROSA inhibitor Cardiology consultation Keep patient nothing by mouth for possible cardiac catheter Consider troponin ordered (2) NSTEMI (non-ST elevated myocardial infarction) Current Visit: No Status: Acute Assessment and plan: Plan as above (3) CML (chronic myelocytic leukemia) Current Visit: No Status: Chronic Assessment and plan: Stable. Following with oncology (4) GIB (gastrointestinal bleeding) Current Visit: No Status: Acute Qualifiers: GI bleed type/associated pathology: melena Qualified Code(s): K92.1 - Melena (5) Anemia Current Visit: No Status: Acute Assessment and plan: Seen and evaluated by hematology at her previous admission Monitor H&H closely. May transfuse if needed Qualifiers: Anemia type: unspecified type Qualified Code(s): D64.9 - Anemia, unspecified (6) COPD (chronic obstructive pulmonary disease) Current Visit: No Status: Chronic Assessment and plan: Stable with no exacerbation Continue current management Qualifiers: COPD type: unspecified COPD Qualified Code(s): J44.9 - Chronic obstructive pulmonary disease, unspecified (7) On esomeprazole prophylaxis Current Visit: Yes Status: Acute (8) DVT prophylaxis Current Visit: Yes Status: Acute Assessment and plan: Would already be on heparin - Time Spent With Patient Total time spent is greater than 50% in coordination of care (as documented) at patient's floor/unit and/or counseling patient:
[2017-10-31] MEDS: Heparin 25,000 UNIT/500 ML D5W 25,000 UNIT/500 ML BAG IVC SCH (12:10)
--- NOTE | 2017-10-31 13:23 | Cardiology Consult Note ---
Date of Encounter: 10/31/17 Time of Encounter: 13:14 Assessment and Plan (1) Chest pain Current Visit: Yes Status: Acute Re-current chest pain s/p NSTEMI 10/28/18. Medical management recommended in the setting of advanced age, possible ischemia on head CT, and anemia after starting heparin gtt. Hgb droped from 11.7 to 9.2 during that admission. She was discharged yesterday and was pain free after starting imdur. 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 I discussed LHC vs. medical management. R/B/A of [facility] in the setting of above concerns discussed. She does prefer medical management. States that he she continues to have pain she would like to have something done. Mild troponin elevation likely trending down from earlier this week. Continue to trend. EKG shows NSR with non-specific T wave changes. Improved from EKG taken 10/29/17. TTE completed 10/28/17-LVEF 55%. Normal LV chamber size, wall thickness and overall function. Mild segmental left ventricular systolic dysfunction. Mild left ventricular diastolic dysfunction. Normal right ventricular structure and function. Moderate pulmonary hypertension. Estimated RVSP is 49 mmHg. No significant valvular dysfunction. No prior echo to compare WMA in the apical septal segments. She is not a candidate for cardiac rehab in the setting of medical management. Plan: Continue medical management. Trend troponin. Continue heparin gtt, asa, statin, and bb. Increase imdur. NTG SL PRN chest pain. Qualifiers: Chest pain type: unspecified Qualified Code(s): R07.9 - Chest pain, unspecified (2) Elevated troponin Current Visit: Yes Status: Acute Troponin elevation at 0.23. Previously 1.26 on 10/29/17. Likely trending down. Repeat troponin this afternoon. See plan above. (3) CAD (coronary artery disease) Current Visit: No Status: Chronic H/o mild CAD on [facility] in 2012. There was a 30% stenosis in the pLAD, 30% stenosis mLAD, 40% stenosis pLCx artery, 30% stenosis mRCA, 40% stenosis mRCA. Asa, statin, and bb recommended. Reports being taken off asa in December 2016 for possible GI bleed from stomach ulcer. Asa restarted during last hospital stay. Qualifiers: Coronary Disease-Associated Artery/Lesion type: [place] artery [place] vs. transplanted heart: [place] heart Associated angina: angina presence unspecified Qualified Code(s): I25.10 - Atherosclerotic heart disease of [place] coronary artery without angina pectoris Discussion w patient/family: The assessment and plan as outlined above was discussed with the patient and/or family members who expressed understanding and agreement. All questions were answered. Thank you for involving us in the care of your patient. Please call with any questions. History of Present Illness Consult date: 10/31/18 Requesting physician: Paolo Shultz Consult reason: Chest pain, recent NSTEMI Chief complaint: Chest pain History of present illness: Ms. 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 She presented to the ED with the c/o recurrent midsternal chest pain starting at 0330 this morning. She was discharged yesterday after NSTEMI. SHe was admitted 10/28/18 for chest pain. Troponin up to 1.37 at that time. TTE showed normal EF with segemental WMA. Medical management was recommended in the setting of patient preferring conservative management, advanced age, and possible ischemic changes on head CT. She was started on asa, statin, bb, and SL imdur. 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 She was seen by neurology during her stay for abnormal CT findings. CT of the head was ordered for headache. CT finding thought to be secondary to artifact. CVA thought to be unlikely. MRI recommended if there was concern. No hemorrhage seen. Past Med Surg Social Fam HX - Past Medical History Medical history: cancer, COPD, coronary artery disease, GERD, hypertension, other Additional medical history: Vertigo, leukemia Psychiatric history: no psych history - Past Surgical History Surgical History: cancer surgery, hysterectomy - Social History Smoking Status: Former smoker Smokeless Tobacco Status: No Alcohol use: none Drug use: none - Family History Mother Adopted: No Living Status: Hx Family Cardiac Disorders: Yes (History of nine MS's) Hx Family Respiratory Disorders: No Hx Family Cancer: No Hx Family GI Disorders: No Hx Family Endocrine Disorder: Yes (Severe Diabetic) Hx Family Neuromuscular Disorders: No Hx Family Neurologic Disorders: No Hx Family HEENT Disorders: No Hx Family Autoimmune Disorders: No Father Adopted: No Living Status: Hx Family Cardiac Disorders: Yes (Hypertension) Hx Family Respiratory Disorders: No Hx Family Cancer: No Hx Family GI Disorders: No Hx Family Endocrine Disorder: No Hx Family Neuromuscular Disorders: No Hx Family Neurologic Disorders: No Hx Family HEENT Disorders: No Hx Family Autoimmune Disorders: No Medications and Allergies Losartan Potassium [Cozaar] 100 mg PO DAILY 09/14/16 [History] Meclizine [Antivert] 25 mg PO DAILY PRN 09/14/16 [History] Verapamil ER (24 HR) [Calan SR] 240 mg PO DAILY 09/14/16 [History] Metoprolol Tartrate [Lopressor] 12.5 mg PO BID 10/09/16 [History] Montelukast [Singulair] 10 mg PO DAILY 11/30/16 [History] Tiotropium [place] [Spiriva Respimat] 2 puff IH DAILY 11/30/16 [History] Folic Acid 1 mg PO DAILY #90 tablet 12/25/16 [Rx] Diclofenac Sodium [Voltaren] 1 appl TP BID 02/12/17 [History] Cholecalciferol (Vitamin D3) [Vitamin D3] 2,000 unit PO DAILY 05/14/17 [History] Multivitamin [Multivitamins] 1 each PO DAILY 05/14/17 [History] Omeprazole [PriLOSEC] 40 mg PO DAILY #30 cap 07/26/17 [Rx] Aspirin 81 mg PO DAILY 30 Days #30 tab.chew 10/30/17 [Rx] Atorvastatin [Lipitor] 40 mg PO HS 30 Days #30 tablet 10/30/17 [Rx] Ferrous Sulfate 325 mg PO DAILY #30 tablet.dr 10/30/17 [Rx] Isosorbide MONOnitrate (24 HR) [Imdur] 30 mg PO DAILY 30 Days #30 tab.er.24h [Rx] Nitroglycerin 0.4 mg SL Q5MIN PRN 30 Days #30 tab.subl 10/30/17 [Rx] 3 Allergy/AdvReac Type Severity Reaction Status Date / Time albuterol AdvReac Seizure Verified 10/28/17 10:12 ciprofloxacin [From Cipro] AdvReac Nausea Verified 10/28/17 10:12 codeine AdvReac Vomiting Verified 10/28/17 10:12 iodine AdvReac Fainting Verified 10/28/17 10:12 pentazocine [From [place]] AdvReac Hypotension Verified 10/28/17 10:12 prednisone AdvReac See Verified 10/28/17 10:12 Comments Tetracycline AdvReac Unconscious Verified 10/28/17 10:12 steroids AdvReac Cramping Uncoded 10/28/17 10:12 of the Muscles All Systems Review: The remainder of the systems were reviewed and are negative Physical Examination Vital Signs, Last 4 Hours Temp Pulse Resp BP Pulse Ox 10/31/17 11:28 98 F 74 15 161/78 99 General: Conversant, No Apparent Distress HEENT: Atraumatic, Normocephaly, Mucus Membranes Moist Neck: No JVD, Normal carotid pulses Cardiac: Reg Rate and Rhythm, Normal S1 and S2, No Murmur Lungs: Normal Breath Sounds, No Wheeze, Rales, Rhonchi Neuro: Alert and responsive, No focal deficits noted Abdomen: Soft, Non-Tender Skin: No rashes noted on visualized skin Musculoskeletal: No Chest Wall Tenderness Extremities: No Clubbing, No Cyanosis, No Edema, Normal Pulses Results 10/31/17 09:01 10/31/17 09:01 - Imaging and Cardiology Echo: report reviewed Cardiac cath: report reviewed - EKG Interpretation EKG results cardiology: personally reviewed Consult Discharge Plan - Plan Referrals: Shaun Pace DO [Primary Care Provider] -
[2017-10-31] MEDS ORDERED: Isosorbide MONOnitrate (24 HR) 30 MG TAB.ER.24H PO ONE (13:54)
[2017-10-31] MEDS ORDERED: *HR* OxyCODONE Immed Rel 5 MG TABLET PO PRN (14:05)
[2017-10-31] MEDS: Acetaminophen 325 MG TABLET PO PRN (16:29)
--- NOTE | 2017-10-31 17:39 | Electrocardiograph Report ---
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
[2017-10-31] MEDS: (Diclofenac Sodium [Voltaren] 1 APPL) TP SCH (20:54)
[2017-11-01 01:13] LABS: Basophils % 0.6 %; Eosinophils # 0.3 K/mcL (0.0-0.6); Eosinophils % 4.6 %; Hematocrit 29.4 % (35.3-44.9); Immature Granulocytes % 0.4 % (0-4); Lymphocytes # 2.1 K/mcL (0.6-4.6); Lymphocytes % 31.6 %; Mean Corpuscular Hemoglobin 27.8 pg (28.0-33.3); Mean Corpuscular Volume 89.9 fL (83.0-100.0); Mean Platelet Volume 9.7 fL (9.4-12.4); Monocytes # 0.6 K/mcL (0.0-1.3); Monocytes % 8.2 %; Neutrophils # 3.6 K/mcL (1.6-8.9); Platelet Count 207 K/mcL (140-400); Red Blood Count 3.27 M/mcL (3.82-4.97); Red Cell Distribution Width 14.9 % (11.5-14.5); Segmented Neutrophils % 54.6 %
[2017-11-01 01:22] LABS: Hemoglobin 9.1 g/dL (11.5-15.4)
[2017-11-01 01:30] LABS: BUN/Creatinine Ratio 19 (6-26); Blood Urea Nitrogen 13 mg/dL (8-23); Calcium 8.7 mg/dL (8.6-10.3); Carbon Dioxide 25 mEq/L (23-29); Chloride 109 mEq/L (98-107); Glucose 99 mg/dL (70-105); Magnesium 1.8 mg/dL (1.6-2.6); Osmolality,Calculated 292 (280-300); Phosphorous 3.4 mg/dL (2.7-4.5); Potassium 3.8 mEq/L (3.5-5.1); Sodium 141 mEq/L (136-145); eGFR For African Americans > 60 (> 60); eGFR For Non-African Americans > 60 (> 60)
[2017-11-01] MEDS: Aspirin 81 MG TAB.CHEW PO SCH (08:25)
[2017-11-01] MEDS: Cholecalciferol (D-3) 1,000 UNIT TABLET PO SCH (08:25)
[2017-11-01] MEDS: Folic Acid 1 MG TABLET PO SCH (08:25)
[2017-11-01] MEDS: Verapamil ER (24 HR) 240 MG TABLET.ER PO SCH (08:25)
[2017-11-01] MEDS: Multivit/Ca/Min/Fe/FA 1 TAB TABLET PO SCH (08:25)
[2017-11-01] MEDS: (Diclofenac Sodium [Voltaren] 1 APPL) TP SCH ×2 (08:37→21:17)
[2017-11-01] MEDS ORDERED: Isosorbide MONOnitrate (24 HR) 30 MG TAB.ER.24H PO SCH ×2 (09:00)
[2017-11-01] MEDS ORDERED: (Tiotropium Bromide [Spiriva Respimat] 2 PUFF) IH SCH (09:00)
[2017-11-01] MEDS ORDERED: Isosorbide MONOnitrate (24 HR) 30 MG TAB.ER.24H PO ONE (10:15)
--- NOTE | 2017-11-01 10:17 | Cardiology Progress Note ---
Date of Encounter: 11/01/17 Time of Encounter: 09:30 Assessment and Plan (1) Chest pain Current Visit: Yes Status: Acute Per cardiology: Re-current chest pain s/p NSTEMI 10/28/18. Medical management recommended in the setting of advanced age, possible ischemia on head CT, and anemia after starting heparin gtt. Hgb droped from 11.7 to 9.2 during that admission. TTE completed 10/28/17-LVEF 55%. Normal LV chamber size, wall thickness and overall function. Mild segmental left ventricular systolic dysfunction. Mild left ventricular diastolic dysfunction. Normal right ventricular structure and function. Moderate pulmonary hypertension. Estimated RVSP is 49 mmHg. No significant valvular dysfunction. No prior echo to compare WMA in the apical septal segments. She was discharged 10/30/17 and was pain free after starting imdur. Imdur increased yesterday. Reports breif episode chest pain resolving on its own last night. LHC vs. medical management was discussed. R/B/A of [facility] in the setting of above concerns discussed. There was concern for anterior ischemia on EKG completed last admission. All testing completed reviewed with patient. Concern for possible rapid decline or worsening of symptoms was reviewed with patient. She Continues to prefer medical management as her first option. Mild troponin elevation likely trending down from earlier this week. She is not a candidate for cardiac rehab in the setting of medical management. Plan: Continue medical management. Increase imdur to 90 mg daily. Continue heparin gtt as tolerated, asa, statin, and bb. NTG SL PRN chest pain. Monitor for decline in Hgb on heparin gtt. Plan to continue for 48 hours total. No signs of bleeding. Qualifiers: Chest pain type: unspecified Qualified Code(s): R07.9 - Chest pain, unspecified (2) Elevated troponin Current Visit: Yes Status: Acute Troponin elevation at 0.23, 0.26, 0.20. Previously 1.26 on 10/29/17. Likely trending down from recent MS. See plan above. (3) CAD (coronary artery disease) Current Visit: No Status: Chronic H/o mild CAD on [facility] in 2012. There was a 30% stenosis in the pLAD, 30% stenosis mLAD, 40% stenosis pLCx artery, 30% stenosis mRCA, 40% stenosis mRCA. Asa, statin, and bb recommended. Reports being taken off asa in December 2016 for possible GI bleed from stomach ulcer. Asa restarted during last hospital stay. Continue statin, bb and imdur. Qualifiers: Coronary Disease-Associated Artery/Lesion type: [place] artery [place] vs. transplanted heart: [place] heart Associated angina: angina presence unspecified Qualified Code(s): I25.10 - Atherosclerotic heart disease of [place] coronary artery without angina pectoris Discussion w patient/family: The assessment and plan as outlined above was discussed with the patient and/or family members who expressed understanding and agreement. All questions were answered. Thank you for involving us in the care of your patient. Please call with any questions. Subjective Principal diagnosis: Chest pain, recent NSTEMI Interval history: Ms. Desouza reports having chest pain last night for one minute. She sat up in bed and drank water with relief of her chest pain. No recurrent pain. Objective Vital Signs, Last 4 Hours Temp Pulse Resp BP Pulse Ox 11/01/17 06:59 97.5 F L 71 16 154/77 95 General: Conversant, No Apparent Distress, Other (frail elderly female) HEENT: Atraumatic, Normocephaly, Mucus Membranes Moist Neck: No JVD, Normal carotid pulses Cardiac: Reg Rate and Rhythm, Normal S1 and S2, No Murmur Lungs: Normal Breath Sounds, No Wheeze, Rales, Rhonchi Neuro: Alert and responsive, No focal deficits noted Abdomen: Soft, Non-Tender Skin: No rashes noted on visualized skin Musculoskeletal: No Chest Wall Tenderness Extremities: No Clubbing, No Cyanosis, No Edema, Normal Pulses Results 11/01/17 00:36 11/01/17 00:36 Lab Results 10/31/17 10/31/17 10/31/17 14:48 18:00 21:42 WBC Hgb Hct Plt Count APTT 72.1 H D Sodium Potassium Chloride Carbon Dioxide BUN Creatinine Glucose Calcium Magnesium Troponin I 0.23 H* 0.26 H* 11/01/17 11/01/17 11/01/17 00:36 00:36 00:36 WBC 6.7 Hgb 9.1 L D Hct 29.4 L Plt Count 207 APTT 87.2 H Sodium 141 Potassium 3.8 Chloride 109 H Carbon Dioxide 25 BUN 13 Creatinine 0.67 Glucose 99 Calcium 8.7 Magnesium 1.8 Troponin I 11/01/17 02:51 WBC Hgb Hct Plt Count APTT Sodium Potassium Chloride Carbon Dioxide BUN Creatinine Glucose Calcium Magnesium Troponin I 0.20 H* - Imaging and Cardiology Echo: report reviewed - EKG Interpretation EKG results cardiology: personally reviewed Consult Discharge Plan - Plan Referrals: Shaun Pace DO [Primary Care Provider] - 11/08/17 9:00 am
--- NOTE | 2017-11-01 11:31 | Internal Med Progress Note ---
Date of Encounter: 11/01/17 Time of Encounter: 11:30 - Assessment and plan (1) NSTEMI (non-ST elevated myocardial infarction) Current Visit: No Status: Acute Assessment and plan: Cardiology has been consulted patient prefers medical management at this time we will continue with aspirin and statin beta erich Does not wish to proceed with left heart catheter currently chest pain-free She can follow up with cardiology as an outpatient Patient waiting for ECF placement for rehabilitation per PTOT recommendations (2) Anemia Current Visit: No Status: Acute Assessment and plan: Patient's hemoglobin was 10.9 on admission down to 9.1 today she was Hemoccult positive. She was initiated on a heparin drip per cardiology which was stopped. We will continue to monitor H&H transfuse as needed. Continue with oral iron. Qualifiers: Anemia type: unspecified type Qualified Code(s): D64.9 - Anemia, unspecified (3) GIB (gastrointestinal bleeding) Current Visit: No Status: Acute Assessment and plan: Patient does have a history of stomach ulcers she underwent endoscopy last year and did have a GI bleed. Hemoglobin has dropped she was on a heparin drip Hemoccult was positive we did discuss possible endoscopy to rule out bleeding ulcer however patient is declining at this time. She prefers to continue with Protonix IV and monitor H&H and transfusions. Continue with Protonix 40 mg IV twice a day H&H every 6 hours and transfuse as needed Qualifiers: GI bleed type/associated pathology: melena Qualified Code(s): K92.1 - Melena (4) CAD (coronary artery disease) Current Visit: No Status: Chronic Qualifiers: Coronary Disease-Associated Artery/Lesion type: [place] artery [place] vs. transplanted heart: [place] heart Associated angina: angina presence unspecified Qualified Code(s): I25.10 - Atherosclerotic heart disease of [place] coronary artery without angina pectoris (5) CML (chronic myelocytic leukemia) Current Visit: No Status: Chronic Assessment and plan: History of CML which is chronic currently on nilotinib tolerating well at 300 mg twice a day oncology consulted and following along and appreciate recommendations (6) COPD (chronic obstructive pulmonary disease) Current Visit: No Status: Chronic Assessment and plan: Presently stable at this time no wheezing oxygen as needed bronchodilators as needed Qualifiers: COPD type: unspecified COPD Qualified Code(s): J44.9 - Chronic obstructive pulmonary disease, unspecified (7) DVT prophylaxis Current Visit: Yes Status: Acute Assessment and plan: SCDs due to anemia - Time Spent With Patient Total time spent is greater than 50% in coordination of care (as documented) at patient's floor/unit and/or counseling patient: - Subjective Interval history: She was seen and examined at the bedside. Patient presently denies any chest pain or shortness of breath. We are waiting placement to [facility] for rehabilitation - Constitutional Vitals: Temp Pulse Resp BP Pulse Ox 97.9 F 72 15 112/70 96 11/01/17 11:04 11/01/17 11:04 11/01/17 11:04 11/01/17 11:04 11/01/17 11:04 General appearance: Present: A&O X 3 - Head Head exam: Present: atraumatic, normocephalic - Eye Eye exam: Present: PERRL, conjuntiva pink, sclera anicteric Pupils: Present: PERRL - Neck Neck exam general surgery: Present: supple, trachea midline. Absent: lymphadenopathy - Respiratory Respiratory exam: Present: CTAB. Absent: accessory muscle use, rales, rhonchi, wheezes - Cardiovascular Cardiovascular exam: Present: RRR, +S1, +S2. Absent: diastolic murmur, gallop, rubs, systolic murmur - GI/Abdominal GI/Abdominal exam: Present: normal bowel sounds, soft, no peritoneal signs. Absent: distended, tenderness - Extremities Exam Extremities exam: Present: warm, radial pulses palpable and symmetrical. Absent : calf tenderness, cyanotic, pedal edema - Neurological Exam Neurological exam: Present: CN II-XII intact, oriented X3, no focal deficits. Absent: pronater drift, facial droop, speech deficit - Skin Skin exam: Present: dry, intact Internal Medicine: Result - Labs CBC & Chem 7: 11/01/17 00:36 11/01/17 00:36 Labs: Short CBC 11/01/17 Range/Units 00:36 WBC 6.7 (4.3-11.1) K/mcL Hgb 9.1 L D (11.5-15.4) g/dL Hct 29.4 L (35.3-44.9) % Plt Count 207 (140-400) K/mcL Neutrophils # 3.6 (1.6-8.9) K/mcL BMP 11/01/17 00:36 Sodium 141 Potassium 3.8 Chloride 109 H Carbon Dioxide 25 BUN 13 Creatinine 0.67 Glucose 99 Calcium 8.7 Cardiac Enzymes 10/31/17 10/31/17 11/01/17 Range/Units 14:48 21:42 02:51 Troponin I 0.23 H* 0.26 H* 0.20 H* (< 0.04) ng/mL - ABG Interpretation ABG results: PT/INR, D-dimer PT 10.9 Seconds (9.4-12.1) 10/31/17 09:01 Consult Discharge Plan - Plan Referrals: Shaun Pace DO [Primary Care Provider] - 11/08/17 9:00 am
[2017-11-01] MEDS: Heparin 25,000 UNIT/500 ML D5W 25,000 UNIT/500 ML BAG IVC SCH (12:33)
[2017-11-01 16:29] LABS: Hemoglobin 9.8 g/dL (11.5-15.4)
[2017-11-01] MEDS: Pantoprazole 40 MG VIAL IVP SCH (18:33)
[2017-11-01 21:08] LABS: Hematocrit 33.6 % (35.3-44.9); Hemoglobin 10.3 g/dL (11.5-15.4)
[2017-11-02 01:41] LABS: BUN/Creatinine Ratio 19 (6-26); Blood Urea Nitrogen 13 mg/dL (8-23); Calcium 8.9 mg/dL (8.6-10.3); Carbon Dioxide 25 mEq/L (23-29); Chloride 110 mEq/L (98-107); Glucose 101 mg/dL (70-105); Osmolality,Calculated 292 (280-300); Potassium 3.9 mEq/L (3.5-5.1); Sodium 141 mEq/L (136-145); eGFR For African Americans > 60 (> 60); eGFR For Non-African Americans > 60 (> 60)
[2017-11-02] MEDS: Pantoprazole 40 MG VIAL IVP SCH ×2 (04:59→16:34)
[2017-11-02] MEDS: Tiotropium 18 MCG inhalation IH SCH (07:30)
[2017-11-02] MEDS: Isosorbide MONOnitrate (24 HR) 60 MG TAB.ER.24H PO SCH (07:37)
[2017-11-02] MEDS: Multivit/Ca/Min/Fe/FA 1 TAB TABLET PO SCH (07:37)
[2017-11-02] MEDS: Verapamil ER (24 HR) 240 MG TABLET.ER PO SCH (07:38)
[2017-11-02] MEDS: Cholecalciferol (D-3) 1,000 UNIT TABLET PO SCH (07:39)
[2017-11-02] MEDS: Aspirin 81 MG TAB.CHEW PO SCH (07:39)
[2017-11-02] MEDS: (Diclofenac Sodium [Voltaren] 1 APPL) TP SCH ×2 (07:39→20:32)
[2017-11-02] MEDS: Folic Acid 1 MG TABLET PO SCH (07:39)
--- NOTE | 2017-11-02 09:57 | Internal Med Progress Note ---
Date of Encounter: 11/02/17 Time of Encounter: 09:56 - Assessment and plan (1) NSTEMI (non-ST elevated myocardial infarction) Current Visit: No Status: Acute Assessment and plan: Cardiology has been consulted patient prefers medical management at this time we will continue with aspirin and statin beta erich Does not wish to proceed with left heart catheter currently chest pain-free She can follow up with cardiology as an outpatient Patient waiting for ECF placement for rehabilitation per PTOT recommendations Encourage ambulation per cardiology recommendations (2) Anemia Current Visit: No Status: Acute Assessment and plan: Patient's hemoglobin was 10.9 on admission she Hemoccult-positive was on heparin drip and was discontinued. Hemoglobin stable throughout the night actually up this a.m. We will continue to monitor H&H transfuse as needed. Continue with oral iron. Continue with Protonix Qualifiers: Anemia type: unspecified type Qualified Code(s): D64.9 - Anemia, unspecified (3) GIB (gastrointestinal bleeding) Current Visit: No Status: Acute Assessment and plan: Patient does have a history of stomach ulcers she underwent endoscopy last year and did have a GI bleed. Hemoglobin did drop she was on a heparin drip, however this did improve Hemoccult was positive -patient not interested in EGD Continue with Protonix 40 mg IV twice a day Monitor hemoglobin Qualifiers: GI bleed type/associated pathology: melena Qualified Code(s): K92.1 - Melena (4) CAD (coronary artery disease) Current Visit: No Status: Chronic Assessment and plan: Continue with aspirin and statin and beta erich nitroglycerin as needed for chest pain Qualifiers: Coronary Disease-Associated Artery/Lesion type: [place] artery [place] vs. transplanted heart: [place] heart Associated angina: angina presence unspecified Qualified Code(s): I25.10 - Atherosclerotic heart disease of [place] coronary artery without angina pectoris (5) CML (chronic myelocytic leukemia) Current Visit: No Status: Chronic Assessment and plan: History of CML which is chronic currently on nilotinib tolerating well at 300 mg twice a day- oncology consulted and following along appreciate recommendations (6) COPD (chronic obstructive pulmonary disease) Current Visit: No Status: Chronic Assessment and plan: Presently stable at this time no wheezing oxygen as needed bronchodilators as needed Qualifiers: COPD type: unspecified COPD Qualified Code(s): J44.9 - Chronic obstructive pulmonary disease, unspecified (7) DVT prophylaxis Current Visit: Yes Status: Acute Assessment and plan: SCDs due to anemia - Time Spent With Patient Total time spent is greater than 50% in coordination of care (as documented) at patient's floor/unit and/or counseling patient: - Subjective Interval history: She was seen and examined at the bedside. No changes hemoglobin is no active bleeding at this time. Awaiting placement to [facility] - Constitutional Vitals: Temp Pulse Resp BP Pulse Ox 98.5 F 70 17 158/71 98 11/02/17 07:38 11/02/17 07:38 11/02/17 07:38 11/02/17 07:38 11/02/17 08:01 General appearance: Present: A&O X 3 - Head Head exam: Present: atraumatic, normocephalic - Eye Eye exam: Present: PERRL, conjuntiva pink, sclera anicteric Pupils: Present: PERRL - Neck Neck exam general surgery: Present: supple, trachea midline. Absent: lymphadenopathy - Respiratory Respiratory exam: Present: CTAB. Absent: accessory muscle use, rales, rhonchi, wheezes - Cardiovascular Cardiovascular exam: Present: RRR, +S1, +S2. Absent: diastolic murmur, gallop, rubs, systolic murmur - GI/Abdominal GI/Abdominal exam: Present: normal bowel sounds, soft, no peritoneal signs. Absent: distended, tenderness - Extremities Exam Extremities exam: Present: warm, radial pulses palpable and symmetrical. Absent : calf tenderness, cyanotic, pedal edema - Neurological Exam Neurological exam: Present: CN II-XII intact, oriented X3, no focal deficits. Absent: pronater drift, facial droop, speech deficit - Skin Skin exam: Present: dry, intact Internal Medicine: Result - Labs CBC & Chem 7: 11/01/17 20:46 11/02/17 00:42 Labs: Short CBC 11/01/17 11/01/17 Range/Units 16:06 20:46 Hgb 9.8 L 10.3 L (11.5-15.4) g/dL Hct 31.0 L 33.6 L (35.3-44.9) % BMP 11/02/17 00:42 Sodium 141 Potassium 3.9 Chloride 110 H Carbon Dioxide 25 BUN 13 Creatinine 0.69 Glucose 101 Calcium 8.9 - ABG Interpretation ABG results: PT/INR, D-dimer PT 10.9 Seconds (9.4-12.1) 10/31/17 09:01 - VTE Documentation of Mechanical Device: Intermittent pneumatic compression device Consult Discharge Plan - Plan Referrals: Shaun Pace DO [Primary Care Provider] - 11/08/17 9:00 am
--- NOTE | 2017-11-02 12:03 | Cardiology Progress Note ---
Date of Encounter: 11/02/17 Time of Encounter: 12:00 Assessment and Plan (1) NSTEMI (non-ST elevated myocardial infarction) Current Visit: No Status: Acute Recent non-ST segment elevation myocardial infarction. Overall, appears chest pain has improved. Hemoglobin not repeated today. It was stable yesterday. Recommend continue aspirin, statin, Imdur, and beta erich therapy. Hold Plavix due to GI bleed last year, Hemoccult-positive stools during this admission. Patient continues to request medical therapy. Given her age, prior GI bleed, and current Hemoccult-positive stools, medical therapy is certainly reasonable. She is aware of risks of worsening cardiac condition. No new recommendations today. She was asked to increase activity, walk with nurse or medical records supervisor to see if any symptoms. Discussion w patient/family: The assessment and plan as outlined above was discussed with the patient and/or family members who expressed understanding and agreement. All questions were answered. Thank you for involving us in the care of your patient. Please call with any questions. Subjective Principal diagnosis: Chest pain, recent NSTEMI Interval history: Patient reports she is feeling much better this morning. Denies chest discomfort overnight. No side effects reported to medications. Objective Vital Signs, Last 4 Hours Temp Pulse Resp BP Pulse Ox 11/02/17 11:52 98 F 67 17 155/76 96 11/02/17 08:01 98 General: Conversant, No Apparent Distress HEENT: Atraumatic, Normocephaly, Mucus Membranes Moist Neck: No JVD, Normal carotid pulses Cardiac: Reg Rate and Rhythm, Normal S1 and S2, No Murmur Lungs: Normal Breath Sounds, No Wheeze, Rales, Rhonchi Neuro: Alert and responsive, No focal deficits noted Abdomen: Soft, Non-Tender Skin: No rashes noted on visualized skin Musculoskeletal: No Chest Wall Tenderness Extremities: No Clubbing, No Cyanosis, No Edema Results 11/01/17 20:46 11/02/17 00:42 Lab Results 11/01/17 11/01/17 11/02/17 16:06 20:46 00:42 Hgb 9.8 L 10.3 L Hct 31.0 L 33.6 L APTT 34.9 D Sodium Potassium Chloride Carbon Dioxide BUN Creatinine Glucose Calcium 11/02/17 00:42 Hgb Hct APTT Sodium 141 Potassium 3.9 Chloride 110 H Carbon Dioxide 25 BUN 13 Creatinine 0.69 Glucose 101 Calcium 8.9 - Imaging and Cardiology Echo: report reviewed - EKG Interpretation EKG results cardiology: personally reviewed - VTE Documentation of Mechanical Device: Intermittent pneumatic compression device Consult Discharge Plan - Plan Referrals: Shaun Pace DO [Primary Care Provider] - 11/08/17 9:00 am
[2017-11-03] MEDS: Acetaminophen 325 MG TABLET PO PRN (06:11)
[2017-11-03] MEDS: Pantoprazole 40 MG VIAL IVP SCH ×2 (06:11→16:58)
[2017-11-03] MEDS: Tiotropium 18 MCG inhalation IH SCH (07:58)
--- NOTE | 2017-11-03 08:40 | Internal Med Progress Note ---
Date of Encounter: 11/03/17 Time of Encounter: 08:40 - Assessment and plan (1) NSTEMI (non-ST elevated myocardial infarction) Current Visit: No Status: Acute Assessment and plan: Cardiology has been consulted patient prefers medical management at this time we will continue with aspirin and statin beta erich Does not wish to proceed with left heart catheter currently chest pain-free She can follow up with cardiology as an outpatient Patient waiting for ECF placement for rehabilitation per PTOT recommendations Encourage ambulation per cardiology recommendations-patient ambulate in the [place] daily and up to chair as with meals (2) Anemia Current Visit: No Status: Acute Assessment and plan: Patient's hemoglobin was 10.9 on admission she Hemoccult-positive was on heparin drip and was discontinued. Hemoglobin stable at this time We will continue to monitor H&H transfuse as needed. Continue with oral iron. Continue with Protonix Qualifiers: Anemia type: unspecified type Qualified Code(s): D64.9 - Anemia, unspecified (3) GIB (gastrointestinal bleeding) Current Visit: No Status: Acute Assessment and plan: Patient does have a history of stomach ulcers she underwent endoscopy last year and did have a GI bleed. Hemoglobin did drop she was on a heparin drip, however this did improve Hemoccult was positive -patient not interested in EGD Continue with Protonix 40 mg IV twice a day Monitor hemoglobin Stable at this time no active bleeding noted Qualifiers: GI bleed type/associated pathology: melena Qualified Code(s): K92.1 - Melena (4) CAD (coronary artery disease) Current Visit: No Status: Chronic Assessment and plan: Continue with aspirin and statin and beta erich nitroglycerin as needed for chest pain Continuous cardiac monitoring Qualifiers: Coronary Disease-Associated Artery/Lesion type: [place] artery [place] vs. transplanted heart: [place] heart Associated angina: angina presence unspecified Qualified Code(s): I25.10 - Atherosclerotic heart disease of [place] coronary artery without angina pectoris (5) CML (chronic myelocytic leukemia) Current Visit: No Status: Chronic Assessment and plan: History of CML which is chronic currently on nilotinib tolerating well at 300 mg twice a day- oncology consulted and following along appreciate recommendations (6) COPD (chronic obstructive pulmonary disease) Current Visit: No Status: Chronic Assessment and plan: Presently stable at this time no wheezing oxygen as needed bronchodilators as needed Qualifiers: COPD type: unspecified COPD Qualified Code(s): J44.9 - Chronic obstructive pulmonary disease, unspecified (7) DVT prophylaxis Current Visit: Yes Status: Acute Assessment and plan: SCDs due to anemia Ambulate patient - Time Spent With Patient Total time spent is greater than 50% in coordination of care (as documented) at patient's floor/unit and/or counseling patient: - Subjective Interval history: She was seen and examined at the bedside. Hemoglobin has been stable no active bleeding noted. Awaiting placement to [facility]-no changes since yesterday denies any pain or discomfort - Constitutional Vitals: Temp Pulse Resp BP Pulse Ox 97.6 F 63 16 171/81 95 11/03/17 07:54 11/03/17 07:54 11/03/17 07:58 11/03/17 07:54 11/03/17 07:58 General appearance: Present: A&O X 3 - Head Head exam: Present: atraumatic, normocephalic - Eye Eye exam: Present: PERRL, conjuntiva pink, sclera anicteric Pupils: Present: PERRL - Neck Neck exam general surgery: Present: supple, trachea midline. Absent: lymphadenopathy - Respiratory Respiratory exam: Present: CTAB. Absent: accessory muscle use, rales, rhonchi, wheezes - Cardiovascular Cardiovascular exam: Present: RRR, +S1, +S2. Absent: diastolic murmur, gallop, rubs, systolic murmur - GI/Abdominal GI/Abdominal exam: Present: normal bowel sounds, soft, no peritoneal signs. Absent: distended, tenderness - Extremities Exam Extremities exam: Present: warm, radial pulses palpable and symmetrical. Absent : calf tenderness, cyanotic, pedal edema - Neurological Exam Neurological exam: Present: CN II-XII intact, oriented X3, no focal deficits. Absent: pronater drift, facial droop, speech deficit - Skin Skin exam: Present: dry, intact Internal Medicine: Result - Labs CBC & Chem 7: 11/03/17 08:46 11/02/17 00:42 - ABG Interpretation ABG results: PT/INR, D-dimer PT 10.9 Seconds (9.4-12.1) 10/31/17 09:01 - VTE Documentation of Mechanical Device: Intermittent pneumatic compression device Consult Discharge Plan - Plan Referrals: Shaun Pace, [Primary Care Provider] - 11/08/17 9:00 am
[2017-11-03] MEDS: Isosorbide MONOnitrate (24 HR) 60 MG TAB.ER.24H PO SCH (08:43)
[2017-11-03] MEDS: Verapamil ER (24 HR) 240 MG TABLET.ER PO SCH (08:43)
[2017-11-03] MEDS: Folic Acid 1 MG TABLET PO SCH (08:43)
[2017-11-03] MEDS: Aspirin 81 MG TAB.CHEW PO SCH (08:43)
[2017-11-03] MEDS: Cholecalciferol (D-3) 1,000 UNIT TABLET PO SCH (08:43)
[2017-11-03] MEDS: Multivit/Ca/Min/Fe/FA 1 TAB TABLET PO SCH (08:43)
[2017-11-03] MEDS: (Diclofenac Sodium [Voltaren] 1 APPL) TP SCH ×2 (08:44→19:46)
[2017-11-03 09:19] LABS: Eosinophils % 4.6 %; Hematocrit 31.1 % (35.3-44.9); Hemoglobin 9.7 g/dL (11.5-15.4); Immature Granulocytes % 0.3 % (0-4); Lymphocytes % 29.4 %; Mean Corpuscular HGB Conc 31.2 g/dL (31.6-35.5); Mean Corpuscular Hemoglobin 28.1 pg (28.0-33.3); Mean Corpuscular Volume 90.1 fL (83.0-100.0); Mean Platelet Volume 9.5 fL (9.4-12.4); Platelet Count 221 K/mcL (140-400); Red Blood Count 3.45 M/mcL (3.82-4.97); Red Cell Distribution Width 15.2 % (11.5-14.5); Segmented Neutrophils % 58.9 %
[2017-11-03 09:20] LABS: Basophils # 0.1 K/mcL (0.0-0.2); Basophils % 0.8 %; Eosinophils # 0.3 K/mcL (0.0-0.6); Lymphocytes # 1.9 K/mcL (0.6-4.6); Monocytes # 0.4 K/mcL (0.0-1.3); Neutrophils # 3.9 K/mcL (1.6-8.9)
--- NOTE | 2017-11-03 12:31 | Event Note ---
Date of Encounter: 11/03/17 Time of Encounter: 12:29 No new events overnight. Patient prefers medical therapy. Recommend continue aspirin, statin, Imdur, and beta erich therapy. We discussed cardiac catheterization on multiple occasions, including the risks , benefits, and alternatives. Patient remains opposed to the procedure and recognizes the risks, including worsening condition. [place], it seems she has responded well to medical therapy. No further inpatient cardio G recommendations. Cardiology will sign off. Thank you, Darius De La Fuente DO, FACC
[2017-11-04 04:43] LABS: Hematocrit 30.1 % (35.3-44.9); Hemoglobin 9.3 g/dL (11.5-15.4)
[2017-11-04] MEDS: Pantoprazole 40 MG VIAL IVP SCH (06:17)
[2017-11-04] MEDS: Tiotropium 18 MCG inhalation IH SCH (07:17)
[2017-11-04] MEDS: Verapamil ER (24 HR) 240 MG TABLET.ER PO SCH (08:35)
[2017-11-04] MEDS: Multivit/Ca/Min/Fe/FA 1 TAB TABLET PO SCH (08:35)
[2017-11-04] MEDS: (Diclofenac Sodium [Voltaren] 1 APPL) TP SCH (08:36)
[2017-11-04] MEDS: Folic Acid 1 MG TABLET PO SCH (08:36)
[2017-11-04] MEDS: Aspirin 81 MG TAB.CHEW PO SCH (08:36)
[2017-11-04] MEDS: Cholecalciferol (D-3) 1,000 UNIT TABLET PO SCH (08:36)
[2017-11-04] MEDS: Isosorbide MONOnitrate (24 HR) 60 MG TAB.ER.24H PO SCH (08:36)
[2017-11-04 11:23] VITALS: BP 135/71
--- NOTE | 2017-11-04 14:38 | Internal Med Progress Note ---
Date of Encounter: 11/04/17 Time of Encounter: 14:35 - Assessment and plan (1) NSTEMI (non-ST elevated myocardial infarction) Current Visit: No Status: Acute (2) Anemia Current Visit: No Status: Acute Qualifiers: Anemia type: unspecified type Qualified Code(s): D64.9 - Anemia, unspecified (3) GIB (gastrointestinal bleeding) Current Visit: No Status: Acute Qualifiers: GI bleed type/associated pathology: melena Qualified Code(s): K92.1 - Melena (4) CAD (coronary artery disease) Current Visit: No Status: Chronic Qualifiers: Coronary Disease-Associated Artery/Lesion type: [place] artery [place] vs. transplanted heart: [place] heart Associated angina: angina presence unspecified Qualified Code(s): I25.10 - Atherosclerotic heart disease of [place] coronary artery without angina pectoris (5) CML (chronic myelocytic leukemia) Current Visit: No Status: Chronic (6) COPD (chronic obstructive pulmonary disease) Current Visit: No Status: Chronic Qualifiers: COPD type: unspecified COPD Qualified Code(s): J44.9 - Chronic obstructive pulmonary disease, unspecified (7) DVT prophylaxis Current Visit: Yes Status: Acute - Time Spent With Patient Total time spent is greater than 50% in coordination of care (as documented) at patient's floor/unit and/or counseling patient: - Subjective Interval history: She was seen and examined at the bedside. Hemoglobin has been stable no active bleeding noted. Awaiting placement to [facility]-no changes since yesterday denies any pain or discomfort - Constitutional Vitals: Temp Pulse Resp BP Pulse Ox 98.2 F 71 16 135/71 96 11/04/17 11:22 11/04/17 11:22 11/04/17 11:22 11/04/17 11:22 11/04/17 11:22 General appearance: Present: A&O X 3 - Head Head exam: Present: atraumatic, normocephalic - Eye Eye exam: Present: PERRL, conjuntiva pink, sclera anicteric Pupils: Present: PERRL - Neck Neck exam general surgery: Present: supple, trachea midline. Absent: lymphadenopathy - Respiratory Respiratory exam: Present: CTAB. Absent: accessory muscle use, rales, rhonchi, wheezes - Cardiovascular Cardiovascular exam: Present: RRR, +S1, +S2. Absent: diastolic murmur, gallop, rubs, systolic murmur - GI/Abdominal GI/Abdominal exam: Present: normal bowel sounds, soft, no peritoneal signs. Absent: distended, tenderness - Extremities Exam Extremities exam: Present: warm, radial pulses palpable and symmetrical. Absent : calf tenderness, cyanotic, pedal edema - Neurological Exam Neurological exam: Present: CN II-XII intact, oriented X3, no focal deficits. Absent: pronater drift, facial droop, speech deficit - Skin Skin exam: Present: dry, intact Internal Medicine: Result - Labs CBC & Chem 7: 11/04/17 04:17 11/02/17 00:42 Labs: Short CBC 11/04/17 Range/Units 04:17 Hgb 9.3 L (11.5-15.4) g/dL Hct 30.1 L (35.3-44.9) % - ABG Interpretation ABG results: PT/INR, D-dimer PT 10.9 Seconds (9.4-12.1) 10/31/17 09:01 - VTE Documentation of Mechanical Device: Intermittent pneumatic compression device Consult Discharge Plan - Plan Instructions: Myocardial Infarction (DC) Referrals: Shaun Pace DO [Primary Care Provider] - 11/08/17 9:00 am
--- NOTE | 2017-11-04 14:41 | Discharge Summary ---
- NOTES TO OUTPATIENT PROVIDER Notes to Outpatient Provider: Patient was admitted for non-STEMI requesting conservative treatment declined left heart catheter. Had a drop in hemoglobin and guaiac positive stool declined EGD continue with PPI monitor CBC Date of Encounter: 11/04/17 Time of Encounter: 14:39 - Discharge Diagnosis (1) NSTEMI (non-ST elevated myocardial infarction) Priority: Primary Status: Acute (2) Anemia Priority: Secondary Status: Acute Qualifiers: Anemia type: unspecified type Qualified Code(s): D64.9 - Anemia, unspecified (3) GIB (gastrointestinal bleeding) Priority: Secondary Status: Acute Qualifiers: GI bleed type/associated pathology: melena Qualified Code(s): K92.1 - Melena (4) CAD (coronary artery disease) Priority: Secondary Status: Chronic Qualifiers: Coronary Disease-Associated Artery/Lesion type: [place] artery [place] vs. transplanted heart: [place] heart Associated angina: angina presence unspecified Qualified Code(s): I25.10 - Atherosclerotic heart disease of [place] coronary artery without angina pectoris (5) CML (chronic myelocytic leukemia) Priority: Secondary Status: Chronic (6) COPD (chronic obstructive pulmonary disease) Priority: Secondary Status: Chronic Qualifiers: COPD type: unspecified COPD Qualified Code(s): J44.9 - Chronic obstructive pulmonary disease, unspecified Hospital course: Ms. Desouza is a 87 year old female past medical history of CML COPD GERD hypertension presented with chest pain elevated troponin findings consistent with non-STEMI was seen by cardiology declined left heart catheter agreed to medical management cardiology recommending aspirin and statin and Imdur ARB beta erich no more chest pain during admission. She did have a drop in her hemoglobin and a positive Hemoccult.Patient declined EGD we will continue with PPI. Patient was seen by physical therapy recommending inpatient rehabilitation she has been admitted to [facility] Advised patient to follow-up with primary care doctor as well as cardiology. Patient verbalized understanding. Patient denies any chest pain there is no active bleeding at this time Patient is hemodynamically stable at this time and is ready for discharge. 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 - Time Spent with Patient Total time spent providing and/or coordinating discharge services: - Discharge Medications Home Medications: Losartan Potassium [Cozaar] 100 mg PO DAILY 09/14/16 [History] Meclizine [Antivert] 25 mg PO DAILY PRN 09/14/16 [History] Verapamil ER (24 HR) [Calan SR] 240 mg PO DAILY 09/14/16 [History] Metoprolol Tartrate [Lopressor] 12.5 mg PO BID 10/09/16 [History] Montelukast [Singulair] 10 mg PO DAILY 11/30/16 [History] Tiotropium [place] [Spiriva Respimat] 2 puff IH DAILY 11/30/16 [History] Folic Acid 1 mg PO DAILY #90 tablet 12/25/16 [Rx] Cholecalciferol (Vitamin D3) [Vitamin D3] 2,000 unit PO DAILY 05/14/17 [History] Multivitamin [Multivitamins] 1 each PO DAILY 05/14/17 [History] Omeprazole [PriLOSEC] 40 mg PO DAILY #30 cap 07/26/17 [Rx] Aspirin 81 mg PO DAILY 30 Days #30 tab.chew 10/30/17 [Rx] Atorvastatin [Lipitor] 40 mg PO HS 30 Days #30 tablet 10/30/17 [Rx] Ferrous Sulfate 325 mg PO DAILY #30 tablet.dr 10/30/17 [Rx] Isosorbide MONOnitrate (24 HR) [Imdur] 30 mg PO DAILY 30 Days #30 tab.er.24h [Rx] Nitroglycerin 0.4 mg SL Q5MIN PRN 30 Days #30 tab.subl 10/30/17 [Rx] Allergies/Adverse Reactions: 3 Allergy/AdvReac Type Severity Reaction Status Date / Time albuterol AdvReac Seizure Verified 10/28/17 10:12 ciprofloxacin [From Cipro] AdvReac Nausea Verified 10/28/17 10:12 codeine AdvReac Vomiting Verified 10/28/17 10:12 iodine AdvReac Fainting Verified 10/28/17 10:12 pentazocine [From Talwin] AdvReac Hypotension Verified 10/28/17 10:12 prednisone AdvReac See Verified 10/28/17 10:12 Comments Tetracycline AdvReac Unconscious Verified 10/28/17 10:12 steroids AdvReac Cramping Uncoded 10/28/17 10:12 of the Muscles Date of admission: 10/31/17 10:24 Primary care physician: Shaun Pace DO Consults: 11/01/17 09:17 Consult to Occupational Therapy [CONS] Routine Comment: Evaluate, develop and implement POC Reason for Consult: D/C PLANNING. WEAKNESS Does patient have active BEDREST order?: No Is patient medically & hemodynamically stable?: Yes Consult to Physical Therapy [CONS] Routine Comment: Evaluate, develop and implement POC Reason for Consult: D/C PLANNING. WEAKNESS Does patient have active BEDREST order?: No Is patient medically & hemodynamically stable?: Yes 11/01/17 10:33 Consult to Radiator Core Tester [CONS] Routine Reason for SW Consult: Eval for rehab placement Discharging clinician: Nancy Leblanc Anticipated date of discharge: 11/04/17 - Constitutional Vitals: Temp Pulse Resp BP Pulse Ox 98.2 F 71 16 135/71 96 11/04/17 11:22 11/04/17 11:22 11/04/17 11:22 11/04/17 11:22 11/04/17 11:22 General appearance: Present: A&O X 3 - Head Head exam: Present: atraumatic, normocephalic - Eye Eye exam: Present: PERRL, conjuntiva pink, sclera anicteric Pupils: Present: PERRL - Neck Neck exam general surgery: Present: supple, trachea midline. Absent: lymphadenopathy - Respiratory Respiratory exam: Present: CTAB. Absent: accessory muscle use, rales, rhonchi, wheezes - Cardiovascular Cardiovascular exam: Present: RRR, +S1, +S2. Absent: diastolic murmur, gallop, rubs, systolic murmur - GI/Abdominal GI/Abdominal exam: Present: normal bowel sounds, soft, no peritoneal signs. Absent: distended, tenderness - Extremities Exam Extremities exam: Present: warm, radial pulses palpable and symmetrical. Absent : calf tenderness, cyanotic, pedal edema - Neurological Exam Neurological exam: Present: CN II-XII intact, oriented X3, no focal deficits. Absent: pronater drift, facial droop, speech deficit - Skin Skin exam: Present: dry, intact - Patient Status Disposition: Transfer SNF Condition: Fair - Discharge Instructions Instructions: Myocardial Infarction (DC) Follow Up With: Shaun Pace DO [Primary Care Provider] - 11/08/17 9:00 am - Diet and Activity Activity: as per physical therapy Diet: advance to your usual diet - VTE Documentation of Mechanical Device: Intermittent pneumatic compression device
--- NOTE | 2017-11-04 17:03 | Physician Discharge Referral ---
ExtendedCare Referral Info Transfer To: [facility] Provider in Charge: Benji Cruz Provider in Charge after Transfer: PCP Institutional Level of Care: Skilled - Diagnosis (1) NSTEMI (non-ST elevated myocardial infarction) Priority: Primary Status: Acute (2) Anemia Priority: Secondary Status: Acute (3) GIB (gastrointestinal bleeding) Priority: Secondary Status: Acute (4) CAD (coronary artery disease) Priority: Secondary Status: Chronic (5) CML (chronic myelocytic leukemia) Priority: Secondary Status: Chronic (6) COPD (chronic obstructive pulmonary disease) Priority: Secondary Status: Chronic (7) DVT prophylaxis Priority: Secondary Status: Acute Prognosis: Good Aware of Diagnosis: Patient Aware of Prognosis: Patient - Transfer Medications Home Medications: Losartan Potassium [Cozaar] 100 mg PO DAILY 09/14/16 [History] Meclizine [Antivert] 25 mg PO DAILY PRN 09/14/16 [History] Verapamil ER (24 HR) [Calan SR] 240 mg PO DAILY 09/14/16 [History] Metoprolol Tartrate [Lopressor] 12.5 mg PO BID 10/09/16 [History] Montelukast [Singulair] 10 mg PO DAILY 11/30/16 [History] Tiotropium [place] [Spiriva Respimat] 2 puff IH DAILY 11/30/16 [History] Folic Acid 1 mg PO DAILY #90 tablet 12/25/16 [Rx] Cholecalciferol (Vitamin D3) [Vitamin D3] 2,000 unit PO DAILY 05/14/17 [History] Multivitamin [Multivitamins] 1 each PO DAILY 05/14/17 [History] Omeprazole [PriLOSEC] 40 mg PO DAILY #30 cap 07/26/17 [Rx] Aspirin 81 mg PO DAILY 30 Days #30 tab.chew 10/30/17 [Rx] Atorvastatin [Lipitor] 40 mg PO HS 30 Days #30 tablet 10/30/17 [Rx] Ferrous Sulfate 325 mg PO DAILY #30 tablet.dr 10/30/17 [Rx] Isosorbide MONOnitrate (24 HR) [Imdur] 30 mg PO DAILY 30 Days #30 tab.er.24h [Rx] Nitroglycerin 0.4 mg SL Q5MIN PRN 30 Days #30 tab.subl 10/30/17 [Rx] Allergies/Adverse Reactions: 3 Allergy/AdvReac Type Severity Reaction Status Date / Time albuterol AdvReac Seizure Verified 10/28/17 10:12 ciprofloxacin [From Cipro] AdvReac Nausea Verified 10/28/17 10:12 codeine AdvReac Vomiting Verified 10/28/17 10:12 iodine AdvReac Fainting Verified 10/28/17 10:12 pentazocine [From [place]win] AdvReac Hypotension Verified 10/28/17 10:12 prednisone AdvReac See Verified 10/28/17 10:12 Comments Tetracycline AdvReac Unconscious Verified 10/28/17 10:12 steroids AdvReac Cramping Uncoded 10/28/17 10:12 of the Muscles - Respiratory Orders Smoking Cessation: Smoking cessation has been advised. For more information, call the [place] Tobacco Quit Line at 3-565-GUBH-NOW. - Rehabiliation Orders Rehab Potential: Good - Diet Orders Regular CERTIFICATION: I certify that the transfer of the above named patient to an Extended Care Facility is necessary for the continuing treatment of the diagnosis listed. The above information is true and accurate reflection of patient's current condition. Confidential - Redisclosure prohibited without a patient's written consent.
== END 2017-11-04 17:42 | DRG 281 ==
LOC: 3BNU 08:56 → EMEROO 08:56 → 3BNU 11:12
PROVIDERS: ADMIT Hospitalist; ATTEND Hospitalist